=== PATIENT | male | born 1950 | race Caucasian/White ===

== ENCOUNTER 2017-12-30 11:31 | Inpatient (IN) | payer OTHER ==
[~2017-12-30] VITALS: Ht 180.3 cm; Wt 101.3 kg
--- NOTE | ~2017-12-30 | EKG ---
[place] [address] [place] [address] ELECTROCARDIOGRAM REPORT Name: GEORGIANA ARIAS Room #: 216-P ADM IN M.R.#: [id number] Admission: 12/30/17 Attend Phys: Eddi Fitzgerald MD Discharge: Date of : 52 Report #: [id number] THIS REPORT FOR: //name// [facility] ED Test Date: 2017-12-30 Test Time: 12:11:03 Pat Name: GEORGIANA ARIAS Department: Room: Gender: M Portrait Photographer: [facility] : 1950 Requested By: Irena De La Cruz Order Number: [id number] MD: Salazar Mahan Measurements Intervals [place] Rate: 91 P: AL: QRS: 67 QRSD: 82 T: 50 QT: 395 QTc: 487 Interpretive Statements Atrial fibrillation Ventricular premature complex Borderline low voltage, extremity leads Borderline prolonged QT interval Compared to ECG 11/07/2017 09:22:22 Ventricular premature complex(es) now present Right-axis deviation no longer present Electronically Signed On 12-31-2017 10:45:51 CDT by Salazar Mahan [email or web address] <ELECTRONICALLY SIGNED> By: Salazar Mahan MD 12/31/17 1045 10 10 Salazar Mahan MD /BHASKAR
--- NOTE | ~2017-12-30 | D ---
[facility] [place] [address] DISCHARGE SUMMARY Name: GEORGIANA ARIAS Room #: 216-P [facility] IN M.R.#: [id number] Admission: 12/30/17 Attend Phys: Eddi Fitzgerald MD Discharge: 01/08/18 Date of : 52 Report #: [id number] THIS REPORT FOR: //name// CC: Keenan Beaver DATE OF SERVICE: 01/08/2018 HOSPITAL COURSE: He is a 67-year-old white male resident of [facility], who was hospitalized with an acute stroke with left-sided deficits. It was initially an ischemic stroke and the patient does have chronic atrial fibrillation, but was not anticoagulated due to falls. The stroke spontaneously converted to hemorrhagic stroke during this admission. The patient was seen in evaluation by [facility] Cardiology and Dr. Grady Mcgee from Neurology. Given his marked neurologic deficits on admission, code status was again addressed with the family. His sister feels very comfortable and confident that the patient wants to have everything done. I did explain to her all the ramifications and she expressed a good understanding of what was involved in a code blue and felt that her brother was desirous of having everything done and she wanted to honor his wishes. The left cerebral hemorrhage occurred in the middle cerebral artery distribution and this is on the opposite side of stroke he has had in the past. He had a CT scan of the brain and subsequently MRI and MRA of the brain and intracranial vessels. There are some areas of spasm versus less likely vasculitis, but that diagnosis was not confirmed. In reviewing the progress notes, Dr. Mcgee from Neurology felt that the patient was not making progress and following commands. I did not have that experience and felt that the patient was able to follow commands. The patient does try to speak, but is unintelligible. He does shake his head "yes or no" appropriately in response to questions and did so multiple times in my presence. He also follows instructions about moving his extremities and specifically which ones to move and so forth. Nonetheless, because of the great difficulties with communication for this patient at the present time, his durable power of multi purpose machine operator is activated as both Dr. Mcgee's notes reflect his thoughts and I am stating mine that the patient is unable to make complex medical decisions on his own. I did review the living will of the patient. The attached power of multi purpose machine operator document is in fact crossed out by the patient. The patient was unable to swallow at time of admission and the feeding tube was [address] [address] DISCHARGE SUMMARY Name: GEORGIANA ARIAS Room #: 216-P [facility] IN M.R.#: [id number] Admission: 12/30/17 Attend Phys: Eddi Fitzgerald MD Discharge: 01/08/18 Date of : 52 Report #: [id number] placed and he was started on tube feeding, which attained the 70 mL per hour target rate without difficulty and at time of discharge, he will be going home on continuous tube feeding regimen at 70 mL per hour +150 mL water flushes 4 times a day for starters. DISCHARGE DIAGNOSES: 1. Left hemispheric cerebral ischemic stroke with subsequent hemorrhagic conversion and right-sided deficits and oropharyngeal dysphagia. 2. PEG tube placement. 3. Chronic atrial fibrillation with rate control. 4. Type 2 diabetes mellitus. 5. Urinary tract infection. 6. Ischemic cardiomyopathy. 7. Chronic systolic congestive heart failure. 8. Nonsustained ventricular tachycardia. 9. Obstructive sleep apnea with BiPAP at bedtime. DISCHARGE MEDICATIONS: As follows: 1. Aspirin 81 mg daily. 2. Ciprofloxacin 250 mg per PEG twice daily. 3. Tamsulosin 0.4 mg per PEG daily. 4. Ferrous sulfate 325 mg per PEG daily. 5. Digoxin 0.25 mg per PEG daily. 6. Lipitor 40 mg per PEG at bedtime. 7. Clonidine patches 0.3 mg changed every Monday. 8. Diltiazem 60 mg per tube q.6 hours. 9. Tylenol 650 mg per PEG every 6 hours as needed for pain or fever. 10. Gabapentin 100 mg per tube twice daily. 11. Torsemide 20 mg per PEG every morning. 12. NovoLog sliding scale every 6 hours. 13. Folic acid 1 mg daily in the morning. 14. Allopurinol 100 mg per tube daily. ALLERGIES: 1. PENICILLIN. 2. SULFA. 3. APRICOT. 4. MUSHROOMS. DISPOSITION: The patient is being discharged to a skilled stay at [address] [address] DISCHARGE SUMMARY Name: GEORGIANA ARIAS Room #: 216-P DIS IN M.R.#: [id number] Admission: 12/30/17 Attend Phys: Eddi Fitzgerald MD Discharge: 01/08/18 Date of : 52 Report #: [id number] Mcfp and from there, Dr. Fitzgerald will resume care and work with the family for future plans. <ELECTRONICALLY SIGNED> By: Christian Martini MD 01/09/18 1817 1707 Christian Martini MD /nt
--- NOTE | ~2017-12-30 | PATH ---
[facility] [place] [address] [address] [place] [address] PATHOLOGY RPT PROCEDURE Name: DEREK BARRERA Room #: 216-P DIS IN M.R.#: [id number] Admission: 12/30/17 Date of : 52 Discharge: 01/08/18 Report #: [id number] Path Case #: [id number] [facility] Accession Number: [id number] . 01 Material submitted: . PART A: BX OF DUODENUM PART B: BX OF GASTRIC . 01 Clinical history: . Duodenitis, PEG tube placement, R/O H. pylori . 02 Diagnosis: A. Small bowel mucosa, duodenum/duodenitis, endoscopic biopsy: - Focal changes compatible with erosion showing acute inflammation and fundic-type metaplasia, compatible with peptic duodenitis. - Remainder of tissue showing no villous blunting or increase in intraepithelial lymphocytes. . B. Gastric mucosa, gastric rule out H. pylori, endoscopic biopsy: - Mild reactive gastropathy. - Negative for intestinal metaplasia or atrophy. - Negative for Helicobacter pylori (properly controlled immunohistochemical stain performed). (IUV/db; 01/08/18) LBQ/01/08/2018 . 02 Electronically signed: . Edna Lang MD, Pathologist NPI- [id number] . 01 Gross description: . A. The specimen is received in formalin, labeled "Derek Barrera, biopsy of duodenum-duodenitis". Received are two segments of pale gerardo soft tissue measuring 0.3 and 0.4 cm in maximum dimensions. The specimen is submitted entirely in cassette A1. . B. The specimen is received in formalin, labeled "Derek Barrera, biopsy of gastric, R/O H. pylori". Received is a segment of pale gerardo soft tissue measuring 0.4 cm in maximum dimensions. The specimen is submitted entirely in cassette B1. (CAA; 01/05/2018) QAC/QAC . 02 Pathologist provided ICD-10: K29.80, K31.9 . 02 CPT . [address] [address] PATHOLOGY RPT PROCEDURE Name: DEREK BARRERA Room #: 216-P DIS IN M.R.#: [id number] Admission: 12/30/17 Date of : 52 Discharge: 01/08/18 Report #: [id number] Path Case #: [id number] Performed at: [address], [place], [place] [id number] MD Neymar Hooks MD Phone: [phone] Performed at: [address] [id number] MD Edna Lang MD Phone: [phone]
[~2017-12-30 11:31] MED LIST: ADULT LOW DOSE81 MG PO; ALLOPURINOL 10100 M1 PO; ALLOPURINOL 10100 M2 PO; ATENOLOL 25MG T25 M1 PO; ATORVASTATIN CA40 MG PO; CARDIZEM CD240 MG PO; DUONEB 2.5-0.5 M3 ML INH; EPOGEN10000 UNIT SUBQ; FLOMAX0.4 MG PO; FOLIC ACID1 MG PO; HUMALOG100 UNIT/1 SUBQ; HYDRALAZINE 10M10 MG PO; IMDUR 60 MG TAB60 M1 PO; IRON325 PO; LANTUS SUBQ; MUCINEX600 MG PO; NOVOLOG100 UNIT/1 SUBQ; OS-CAL 500+D31 EAC1 PO; TRAMADOL 50 MG50 MG PO; TYLENOL325 MG PO; ZOFRAN ODT4 MG DISSOLVE
[2017-12-30 11:32] VITALS: BP 136/73
[2017-12-30 11:46] LABS: ABSOLUTE NEUTROPHILS 6.5 thou/uL (1.4-8.2); BASOPHILS 1.3 % (0.0-2.0); EOSINOPHILS 3.9 % (0.0-3.0); HEMATOCRIT 38.3 % (42.0-52.0); HEMOGLOBIN 12.8 gm/dL (14.0-18.0); LYMPHOCYTES 16.2 % (24.0-44.0); MCH 26.2 pg (26.0-34.0); MCHC 33.4 g/dL (28.0-37.0); MCV 78.6 fL (80.0-100.0); MONOCYTES 8.1 % (1.0-8.0); PLATELET COUNT 221 thou/uL (150-400); POLYS 70.5 % (36.0-66.0); RBC 4.87 mil/uL (4.50-6.00); WBC 9.3 thou/uL (4.0-11.0)
[2017-12-30 11:48] LABS: POC CA IONIZED 4.4 mg/dL (4.5-5.3); POC CREATININE 1.6 mg/dL (0.6-1.3); POC HEMOGLOBIN 13.6 g/dL (14.0-18.0); POC POTASSIUM 4.1 mmol/L (3.5-5.1)
[2017-12-30] MEDS ORDERED: POTASSIUM20 PO (12:18)
[2017-12-30] MEDS ORDERED: TORSEMIDE20 MG PO (12:19)
[2017-12-30 12:45] LABS: URINE BILIRUBIN NEGATIVE (Negative); URINE BLOOD 1+ (Negative); URINE CLARITY CLEAR; URINE COLOR YELLOW; URINE GLUCOSE-RANDOM* NEGATIVE (Negative); URINE KETONES NEGATIVE (Negative); URINE LEUKOCYTES 3+ (Negative); URINE NITRITE NEGATIVE (Negative); URINE PROTEIN (DIPSTICK) 2+ (Negative); URINE SPECIFIC GRAVITY 1.015 (1.005-1.035); URINE UROBILINOGEN 0.2 E.U./dl (0.2-1.0)
[2017-12-30 12:54] LABS: BACTERIA None Seen /HPF (None Seen); CRYSTALS None Seen /LPF (None Seen); SQUAMOUS 0-3 Few /LPF (0-3); URINE RBC 3-10 Few /HPF (0-2); URINE WBC >25 Many /HPF (0-5); WBC CLUMPS Packed (None Seen)
[2017-12-30 12:55] LABS: FINE GRANULAR CASTS 0-3 Few /LPF (None Seen)
[2017-12-30 13:31] VITALS: BP 123/82
[2017-12-30 14:43] VITALS: BP 140/69
[2017-12-30 19:26] VITALS: BP 141/70
[2017-12-30 23:54] VITALS: BP 134/73
[2017-12-31 04:12] VITALS: BP 131/75
[2017-12-31 08:25] VITALS: BP 107/77
[2017-12-31 11:17] VITALS: BP 141/71
[2017-12-31 16:15] VITALS: BP 155/76
[2018-01-01 03:44] VITALS: BP 159/74
[2018-01-01 05:15] LABS: CALCIUM 8.3 mg/dL (8.5-10.1); CREATININE 1.5 mg/dL (0.7-1.3); POTASSIUM 3.8 mmol/L (3.5-5.1)
[2018-01-01 07:43] LABS: HEMATOCRIT 35.7 % (42.0-52.0); HEMOGLOBIN 11.8 gm/dL (14.0-18.0); MCH 26.1 pg (26.0-34.0); MCV 79.2 fL (80.0-100.0); PLATELET COUNT 190 thou/uL (150-400); RBC 4.51 mil/uL (4.50-6.00); RDW 19.3 % (10.5-14.5); WBC 10.7 thou/uL (4.0-11.0)
[2018-01-01 08:07] VITALS: BP 139/43
[2018-01-01 08:13] LABS: ABSOLUTE NEUTROPHILS 8.3 thou/uL (1.4-8.2)
[2018-01-01 08:14] LABS: ANISOCYTOSIS 1+
[2018-01-01 12:21] VITALS: BP 167/70
[2018-01-01 15:44] VITALS: BP 197/93
[2018-01-01 16:23] VITALS: BP 141/76
[2018-01-01 20:04] VITALS: BP 155/83
[2018-01-02 05:02] VITALS: BP 160/87
[2018-01-02 08:09] VITALS: BP 172/93
[2018-01-02 11:24] VITALS: BP 168/101
[2018-01-02 15:09] VITALS: BP 184/86
[2018-01-02 19:43] VITALS: BP 194/86
[2018-01-03 00:37] VITALS: BP 174/85
[2018-01-03 03:58] VITALS: BP 186/90
[2018-01-03 08:12] VITALS: BP 196/92
[2018-01-03 11:06] VITALS: BP 189/95
[2018-01-03 16:07] VITALS: BP 183/93
[2018-01-03 20:59] VITALS: BP 188/90
[2018-01-04] VITALS (7 sets, daily range): BP systolic 140–190; BP diastolic 76–102
[2018-01-05 00:32] VITALS: BP 172/83
[2018-01-05 04:47] VITALS: BP 170/84
[2018-01-05 07:29] VITALS: BP 181/86
[2018-01-05 12:06] VITALS: BP 159/76
[2018-01-05 15:10] VITALS: BP 173/86
[2018-01-05 19:51] VITALS: BP 147/75
[2018-01-06 00:07] VITALS: BP 162/71
[2018-01-06 04:50] VITALS: BP 142/74
[2018-01-06 05:05] LABS: HEMATOCRIT 38.4 % (42.0-52.0); HEMOGLOBIN 12.4 gm/dL (14.0-18.0); MCHC 32.3 g/dL (28.0-37.0); MCV 80.3 fL (80.0-100.0); RBC 4.79 mil/uL (4.50-6.00); RDW 19.2 % (10.5-14.5)
[2018-01-06 05:19] LABS: APTT 25.1 Seconds (24.5-32.8); PROTIME 10.6 Seconds (9.3-11.4)
[2018-01-06 07:30] VITALS: BP 143/73
[2018-01-06 12:00] VITALS: BP 139/66
[2018-01-06 16:00] VITALS: BP 146/70
[2018-01-06 19:34] VITALS: BP 145/65
[2018-01-07] VITALS (7 sets, daily range): BP systolic 108–184; BP diastolic 54–76
[2018-01-08 00:09] VITALS: BP 163/72
[2018-01-08 05:32] VITALS: BP 148/79
[2018-01-08 08:10] VITALS: BP 145/63
[2018-01-08 11:50] VITALS: BP 172/79
[2018-01-08 13:45] LABS: CHOLESTEROL 95 mg/dL (<200); HDL CHOLESTEROL 24 mg/dL (>40); LDL CHOLESTEROL 54 mg/dL (<100); TRIGLYCERIDE 89 mg/dL (<150); VLDL 18 mg/dL (<40)
[2018-01-08 15:30] VITALS: BP 167/80
[2018-01-08] MEDS ORDERED: CIPRO250 M1 PER TUBE (16:38)
[2018-01-08] MEDS ORDERED: IRON325 PER TUBE (16:39)
[2018-01-08] MEDS ORDERED: FLOMAX0.4 MG PER TUBE (16:39)
[2018-01-08] MEDS ORDERED: DIGOXIN 0.25 MG TAB PER TUBE (16:40)
[2018-01-08] MEDS ORDERED: Lipitor 40 MG Tab PO (16:40)
[2018-01-08] MEDS ORDERED: CLONIDINE1 EAC1 TRANSDERM (16:40)
[2018-01-08] MEDS ORDERED: DILTIAZEM 30 MG PER TUBE (16:41)
[2018-01-08] MEDS ORDERED: Tylenol 325MG Caplet PO (16:41)
[2018-01-08] MEDS ORDERED: GABAPENTIN 100100 MG PER TUBE (16:41)
[2018-01-08] MEDS ORDERED: FOLIC ACID 1 MG PO (16:42)
[2018-01-08] MEDS ORDERED: TORSEMIDE 20 MG PER TUBE (16:42)
[2018-01-08] MEDS ORDERED: ALLOPURINOL 100 MG PER TUBE (16:42)
[2018-01-08] MEDS ORDERED: NOVOLOG100 UNIT/1 SUBQ (16:42)
== END 2018-01-08 17:59 | DRG 64 ==
LOC: ER 11:31 → 2N 12:44 → EROBS 12:44 → 2N 14:13
PROVIDERS: Emergency Medicine; Internal Medicine; Psychiatry & Neurology Neuromuscular Medicine
PROC: 5A09357 Assistance with Respiratory Ventilation, Less than 24 Consecutive Hours, Continuous Positive Airway Pressure (ICD-10-PCS; principal; 2018-01-03)
PROC: 0DH63UZ Insertion of Feeding Device into Stomach, Percutaneous Approach (ICD-10-PCS; 2018-01-04)
PROC: 0DB68ZX Excision of Stomach, Via Natural or Artificial Opening Endoscopic, Diagnostic (ICD-10-PCS; 2018-01-04)
PROC: 0DB98ZX Excision of Duodenum, Via Natural or Artificial Opening Endoscopic, Diagnostic (ICD-10-PCS; 2018-01-04)
PROC: 5A09357 Assistance with Respiratory Ventilation, Less than 24 Consecutive Hours, Continuous Positive Airway Pressure (ICD-10-PCS; 2018-01-04)
DX: I63.9 Cerebral infarction, unspecified (principal); I61.9 Nontraumatic intracerebral hemorrhage, unspecified; I50.22 Chronic systolic (congestive) heart failure; N39.0 Urinary tract infection, site not specified; I47.2 Ventricular tachycardia; G81.94 Hemiplegia, unspecified affecting left nondominant side; I13.0 Hypertensive heart and chronic kidney disease with heart failure and stage 1 through stage 4 chronic kidney disease, or unspecified chronic kidney disease; E11.22 Type 2 diabetes mellitus with diabetic chronic kidney disease; I25.5 Ischemic cardiomyopathy; G47.33 Obstructive sleep apnea (adult) (pediatric); R13.12 Dysphagia, oropharyngeal phase; I25.10 Atherosclerotic heart disease of native coronary artery without angina pectoris; N18.9 Chronic kidney disease, unspecified; K29.80 Duodenitis without bleeding; K29.70 Gastritis, unspecified, without bleeding; E78.5 Hyperlipidemia, unspecified; K21.9 Gastro-esophageal reflux disease without esophagitis; E11.65 Type 2 diabetes mellitus with hyperglycemia; I48.2 Chronic atrial fibrillation; N40.0 Benign prostatic hyperplasia without lower urinary tract symptoms; Z91.81 History of falling; Z86.73 Personal history of transient ischemic attack (TIA), and cerebral infarction without residual deficits; Z79.4 Long term (current) use of insulin; Z79.82 Long term (current) use of aspirin; Z79.899 Other long term (current) drug therapy; Z88.0 Allergy status to penicillin; Z88.2 Allergy status to sulfonamides; Z91.018 Allergy to other foods
CPT/HCPCS: 10081; 62110; 62900; 70005

== ENCOUNTER 2018-01-10 22:19 | Emergency (ER) | payer OTHER ==
[~2018-01-10] VITALS: Ht 180.3 cm; Wt 97.1 kg
[~2018-01-10 22:19] MED LIST changes: +ALLOPURINOL 100 MG PER TUBE; +CIPRO250 M1 PER TUBE; +CLONIDINE1 EAC1 TRANSDERM; +DIGOXIN 0.25 MG TAB PER TUBE; +DILTIAZEM 30 MG PER TUBE; +FLOMAX0.4 MG PER TUBE; +FOLIC ACID 1 MG PO; +GABAPENTIN 100100 MG PER TUBE; +IRON325 PER TUBE; +Lipitor 40 MG Tab PO; +POTASSIUM20 PO; +TORSEMIDE 20 MG PER TUBE; +TORSEMIDE20 MG PO; +Tylenol 325MG Caplet PO
== END 2018-01-10 22:32 ==
LOC: ER 22:19
DX: Z43.1 Encounter for attention to gastrostomy (principal); E11.9 Type 2 diabetes mellitus without complications; E78.5 Hyperlipidemia, unspecified; K21.9 Gastro-esophageal reflux disease without esophagitis; N40.0 Benign prostatic hyperplasia without lower urinary tract symptoms; Z99.2 Dependence on renal dialysis; Z88.0 Allergy status to penicillin; Z88.2 Allergy status to sulfonamides; Z88.8 Allergy status to other drugs, medicaments and biological substances

== ENCOUNTER 2018-01-11 13:03 | Emergency (ER) | payer OTHER ==
[~2018-01-11] VITALS: Ht 167.6 cm; Wt 77.1 kg
== END 2018-01-11 17:34 | disposition home or self-care (01) ==
LOC: ER 13:03
DX: Z43.1 Encounter for attention to gastrostomy (principal); E11.9 Type 2 diabetes mellitus without complications; I48.91 Unspecified atrial fibrillation; K21.9 Gastro-esophageal reflux disease without esophagitis; E78.5 Hyperlipidemia, unspecified; N40.0 Benign prostatic hyperplasia without lower urinary tract symptoms; Z99.2 Dependence on renal dialysis; Z88.0 Allergy status to penicillin; Z88.1 Allergy status to other antibiotic agents; Z88.2 Allergy status to sulfonamides; Z88.8 Allergy status to other drugs, medicaments and biological substances

== ENCOUNTER 2018-01-12 09:35 | Emergency (ER) | payer OTHER ==
[~2018-01-12] VITALS: Ht 180.3 cm; Wt 90.7 kg
[2018-01-13] MEDS ORDERED: TYLENOL325 MG PER TUBE (03:28)
== END 2018-01-12 09:59 ==
LOC: ER 09:35
DX: Z43.1 Encounter for attention to gastrostomy (principal); E11.9 Type 2 diabetes mellitus without complications; I48.91 Unspecified atrial fibrillation; E78.5 Hyperlipidemia, unspecified; K21.9 Gastro-esophageal reflux disease without esophagitis; N40.0 Benign prostatic hyperplasia without lower urinary tract symptoms; Z88.0 Allergy status to penicillin; Z88.1 Allergy status to other antibiotic agents; Z88.2 Allergy status to sulfonamides; Z88.8 Allergy status to other drugs, medicaments and biological substances

== ENCOUNTER 2018-01-13 03:12 | Emergency (ER) | payer OTHER ==
[~2018-01-13] VITALS: Ht 188 cm; Wt 108.9 kg
[2018-01-13] MEDS ORDERED: TYLENOL325 MG PER TUBE (03:28)
== END 2018-01-13 05:26 | disposition home or self-care (01) ==
LOC: ER 03:12
DX: Z46.59 Encounter for fitting and adjustment of other gastrointestinal appliance and device (principal); E11.22 Type 2 diabetes mellitus with diabetic chronic kidney disease; N18.9 Chronic kidney disease, unspecified; I48.91 Unspecified atrial fibrillation; E78.5 Hyperlipidemia, unspecified; K21.9 Gastro-esophageal reflux disease without esophagitis; Z99.2 Dependence on renal dialysis; Z79.4 Long term (current) use of insulin; Z88.0 Allergy status to penicillin; Z88.1 Allergy status to other antibiotic agents; Z88.2 Allergy status to sulfonamides; Z88.5 Allergy status to narcotic agent; Z91.018 Allergy to other foods

== ENCOUNTER 2018-05-12 19:50 | Inpatient (IN) | payer OTHER ==
[~2018-05-12] VITALS: Ht 185.4 cm; Wt 116.4 kg
--- NOTE | ~2018-05-12 | H ---
[facility] [place] [address] HISTORY AND PHYSICAL Name: GEORGIANA ARIAS Room #: 354-P [facility] IN M.R.#: [id number] Admission: 05/12/18 Attend Phys: Isiah Nam MD Discharge: Date of : 52 Report #: [id number] THIS REPORT FOR: //name// CC: Isiah Nam DATE OF SERVICE: 05/13/2018 HISTORY OF PRESENT ILLNESS: The patient is a 67-year-old male who presented to the Emergency Room with a complaint of shortness of breath that happened earlier yesterday. The patient apparently had coarse lung sounds on arrival to the hospital with some expiratory wheezes. His oxygen saturation was 90% on 4 liters, his respiratory rate was 30. The patient was admitted to the hospital with a possibility of aspiration pneumonia and acute hypoxic respiratory failure. PAST MEDICAL HISTORY: Significant for previous history of pneumonia, parotitis, chronic renal failure, type 2 diabetes mellitus, atrial fibrillation, previous history of falls, anemia, status post CVA with left hemiplegia and dysphagia, hyperlipidemia, gastroesophageal reflux disease. The patient had a history of prostate enlargement. The patient had a history of hyperlipidemia and gouty arthritis. ALLERGIES: PENICILLIN, SULFA, APRICOT, LEVOTHYROXINE, METHADONE, MUSHROOM, SULFA, and SULFADIAZINE. SOCIAL HISTORY AND FAMILY HISTORY: Unknown. REVIEW OF SYSTEMS: Unobtainable. PHYSICAL EXAMINATION: VITAL SIGNS: On arrival to the hospital, the patient's temperature was 97.6, pulse 113 and dropped to 71, respiration 19, blood pressure 132/80. Oxygen was 99% on nonrebreather. HEAD AND NECK: Unremarkable. NECK: Supple. LUNGS: Clear to auscultation with poor respiratory effort. CARDIAC: S1, S2, without any murmur or gallop. ABDOMEN: Benign. Bowel sounds were positive. EXTREMITIES: Trace edema bilaterally. LABORATORY DATA: The patient's 12-lead EKG showed atrial fibrillation with low-voltage on the extremities and precordial leads, nonspecific T-wave abnormalities on the lateral leads, prolonged QT interval. The patient's CBC with diff showed white count of 13.3, hemoglobin 8.4, hematocrit 26.5, platelet count 427, neutrophils are 91%. The patient's chest x-ray showed enlarged heart with a possibility of pericardial effusion, pulmonary congestion versus [facility] [address] [place] [address] HISTORY AND PHYSICAL Name: GEORGIANA ARIAS Room #: 354-P ADM IN M.R.#: [id number] Admission: 05/12/18 Attend Phys: Isiah Nam MD Discharge: Date of : 52 Report #: [id number] congestive heart failure, large left effusion, bilateral atelectasis versus pneumonitis. Basic metabolic panel showed a sodium of 131, potassium 5.8, chloride 98, bicarbonate 26, BUN 53, creatinine 1.5, glucose 169, calcium 9. Troponin less than 0.06. BNP 7076. ASSESSMENT AND PLAN: 1. Acute hypoxic respiratory failure. 2. Congestive heart failure. 3. Possible left lower lobe pneumonia. 4. Possible left pleural effusion. 5. Diabetes mellitus. 6. Previous history of cerebrovascular accident. 7. Atrial fibrillation. The patient was admitted to the hospital with the above-mentioned diagnoses. The patient will be started on meropenem to cover any possibility of aspiration pneumonia. The patient was given one dose of Lasix in the Emergency Room and I will give another dose of Lasix now. I will have an echocardiogram done and I will repeat the patient's chest x-ray tomorrow morning. The patient to continue his medications. We will have physical therapy and occupational therapy to work with the patient. <ELECTRONICALLY SIGNED> By: Isiah Nam MD 05/14/18 0642 0700 0735 Isiah Nam MD /nt
--- NOTE | ~2018-05-12 | EKG ---
[place] [address] [address] ELECTROCARDIOGRAM REPORT Name: GEORGIANA ARIAS Room #: 354-P ADM IN M.R.#: [id number] Admission: 05/12/18 Attend Phys: Isiah Nam MD Discharge: Date of : 52 Report #: [id number] THIS REPORT FOR: //name// [facility] ED Test Date: 2018-05-12 Test Time: 20:21:33 Pat Name: GEORGIANA ARIAS Department: Room: 354 Gender: M Supervisor Polishing: GAL RASHID : 1950 Requested By: Vane Leo Order Number: [id number] MD: Leonard Arzate Measurements Intervals [place] Rate: 123 P: NE: QRS: 80 QRSD: 60 T: 57 QT: 392 QTc: 561 Interpretive Statements Atrial fibrillation Low voltage, extremity and precordial leads Nonspecific ST/T abnormalities Artifact in lead(s) I,II,III,aVR,aVL,aVF,V1,V2 Compared to ECG 12/30/2017 12:11:03 Ventricular premature complex(es) no longer present Electronically Signed On 05-13-2018 23:41:54 SHIPPING AND RECEIVING SPECIALIST by Leonard Arzate [email or web address] <ELECTRONICALLY SIGNED> By: Leonard Arzate MD 05/13/182340 20 20 Leonard Arzate MD /EPI
--- NOTE | ~2018-05-12 | 2DMMODE ---
[facility] [address] [place] [address] 2 D/M-MODE ECHOCARDIOGRAM Name: GEORGIANA ARIAS Room #: 354-P ADM IN M.R.#: [id number] Admission: 05/12/18 Attend Phys: Isiah Nam MD Discharge: Date of : 52 Date of Service: 05/14/18 1426 Report #: [id number] THIS REPORT FOR: //name// APPROVED REPORT Study performed: 05/14/2018 12:30:24 EXAM: Comprehensive 2D, Doppler, and color-flow Echocardiogram Patient Location: Bedside Room #: 354 Status: routine BSA: 2.39 HR: 100 bpm BP: 133/71 mmHg Rhythm: Tachycardia Other Information Study Quality: Adequate Indications Congestive Heart Failure Diabetes Atrial Fibrillation 2D Dimensions IVSd: 11.07 (7-11mm) LVOT Diam: 21.16 (18-24mm) LVDd: 52.91 mm PWd: 9.82 (7-11mm) Ascending Ao: 34.24 (22-36mm) LVDs: 44.31 (25-40mm) Aortic Root: 36.84 mm IVC: 29.00 mm Volumes Left Atrial Volume (Systole) Single Plane 4CH: 68.54 mL Single Plane 2CH: 91.43 mL LA ESV Index: 37.00 mL/m2 Aortic Valve AoV Peak Arpit.: 1.61 m/s AO Peak Gr.: 10.34 mmHg LVOT Max P.92 mmHg LVOT Max V: 1.22 m/s JANI Vmax: 2.66 cm2 Pulmonary Valve PV Peak Arpit.: 1.07 m/s PV Peak Gr.: 4.65 mmHg [facility] [address] [place] [address] 2 D/M-MODE ECHOCARDIOGRAM Name: GEORGIANA ARIAS Room #: 354-P ADM IN M.R.#: [id number] Admission: 05/12/18 Attend Phys: Isiah Nam MD Discharge: Date of : 52 Date of Service: 05/14/18 1426 Report #: [id number] Left Ventricle The left ventricle is normal size. There is normal left ventricular wall thickness. Left ventricular systolic function is borderline. LVEF is 50%. This study is not technically sufficient to allow evaluation of the LV diastolic function. Right Ventricle The right ventricle is normal size. The right ventricular systolic function is normal. Atria Left atrium is dilated. Right atrium is dilated. Aortic Valve The aortic valve is normal in structure. Mild aortic regurgitation. There is no aortic valvular stenosis. Mitral Valve The mitral valve is normal in structure. Trace to mild mitral regurgitation. No evidence of mitral valve stenosis. Tricuspid Valve The tricuspid valve is normal in structure. Trace tricuspid regurgitation. No pulmonary hypertension. Pulmonic Valve The pulmonary valve is normal in structure. There is no pulmonic valvular regurgitation. Great Vessels The aortic root is normal in size. IVC is dilated and collapses <50% with inspiration. Pericardium Large pericardial effusion seen. A large mass is noted in the effusion.no evidence of signif rt sided chamber collapse to suggest tamonade physiology <Conclusion> The left ventricle is normal size. Left ventricular systolic function is borderline. LVEF is 50%. This study is not technically sufficient to allow evaluation of the LV diastolic function. The right ventricle is normal size. Left atrium is dilated. [facility] [address] [place] [address] 2 D/M-MODE ECHOCARDIOGRAM Name: GEORGIANA ARIAS Room #: 354-P ADM IN M.R.#: [id number] Admission: 05/12/18 Attend Phys: Isiah Nam MD Discharge: Date of : 52 Date of Service: 05/14/181425 Report #: [id number] Right atrium is dilated. Mild aortic regurgitation. Trace to mild mitral regurgitation. No evidence of mitral valve stenosis. The aortic root is normal in size. Large pericardial effusion seen. A large mass is noted in the effusion. Large pericardial effusion seen. A large mass is noted in the effusion.no evidence of signif rt sided chamber collapse to suggest tamonade physiology <ELECTRONICALLY SIGNED> By: Vik Harmon MD, [facility] 05/14/18 1426 142 1426 Vik Harmon MD, FACC /INF
--- NOTE | ~2018-05-12 | PATH ---
[facility] [address] [place] [address] PATHOLOGY RPT PROCEDURE Name: GEORGIANA ARIAS Room #: 354-P ADM IN M.R.#: [id number] Admission: 05/12/18 Date of : 52 Discharge: Report #: [id number] Path Case #: [id number] Note [facility] Accession Number: [id number] TESTS RESULT FLAG UNITS REF RANGE LAB Clinician Provided Cytology Information No. of containers..01 Other (Miscellaneous) Source: LEFT PLEURAL FLUID DIAGNOSIS: 02 LEFT PLEURAL FLUID NEGATIVE FOR MALIGNANT CELLS. MESOTHELIAL CELLS ARE PRESENT. THIS INTERPRETATION INCLUDES EVALUATION OF A CELL BLOCK. Signed out by: 02 Edna Lang MD, Pathologist NPI- [id number] Performed by: Cam West, Mechanic And Welder ([facility]) Gross description: 01 7ML, RED, SOLID /LCS FLAG LEGEND: L-Low Normal,H-High Normal,LL-Alert Low,HH-Alert High <-Panic Low,>-Panic High,A-Abnormal,AA-Critical Abnormal Performed at: [address] [place] [address] Neymar Hooks MD, [address] [address] Edna Lang MD, Specimen Comment: A courtesy copy of this report has been sent to Specimen Comment: [phone]. Specimen Comment: Report sent to Performed at: [address], [place], [place] [id number] MD Neymar Hooks MD Phone: [phone]
--- NOTE | ~2018-05-12 | HC ---
[facility] [place] [address] CONSULTATION Name: GEORGIANA ARIAS Room #: 354-P [facility] IN M.R.#: [id number] Admission: 05/12/18 Attend Phys: Isiah Nam MD Discharge: Date of : 52 Report #: [id number] THIS REPORT FOR: //name// CC: Isiah Nam Pulmonary Consultation REFERRAL PHYSICIAN: Keenan Yanez MD REASON FOR REFERRAL: Questionable lung mass. HISTORY OF PRESENT ILLNESS: The patient is a 67-year-old white male who presented to the emergency department with complaints of increasing dyspnea on the night of admission. Chest x-ray on admission showed moderate-sided pleural on moderate size left pleural effusion. A recent echocardiogram suggests questionable lung mass. For that reason, a pulmonary consultation was requested. The patient resides in a skilled nursing due to multiple medical problems including history of CVA with left hemiplegia. The patient is not a good historian. Most of the history is obtained from the chart. Presently, he is awake, but not able to answer questions. PAST MEDICAL HISTORY: Notable for diabetes mellitus type 2, atrial fibrillation, CVA with left hemiplegia, dysphagia, hyperlipidemia, gastroesophageal reflux disease, prostatic hypertrophy, past history of pneumonia, cardiomyopathy, history of parotitis, chronic kidney disease, enlarged prostate, arthritis. PAST SURGICAL HISTORY: Negative. ALLERGIES: PENICILLIN, which causes anaphylaxis; APRICOT, reactions not specified; LEVOFLOXACIN, reaction not specified; METHADONE, MUSHROOMS, SULFA, SULFADIAZINE, reaction not specified. MEDICATIONS: List reviewed in the MAR. FAMILY HISTORY: Noncontributory. SOCIAL HISTORY: No history of tobacco or alcohol use. REVIEW OF SYSTEMS: Deferred, as the patient is not a good historian. PHYSICAL EXAMINATION: [facility] [address] [place] [address] CONSULTATION Name: GEORGIANA ARIAS Room #: 354-P ADM IN M.R.#: [id number] Admission: 05/12/18 Attend Phys: Isiah Nam MD Discharge: Date of : 52 Report #: [id number] GENERAL: Awake, but does not appear coherent. VITAL SIGNS: Temperature is 98 degrees Fahrenheit, pulse is 90, respiratory rate is 20, blood pressure 127/68 mmHg, saturation 98%. HEENT: Normocephalic, atraumatic. NECK: Supple, without lymphadenopathy or thyromegaly. CHEST: Breath sounds are decreased in the bases. No obvious wheezes. No obvious rales. CARDIOVASCULAR: Normal S1, S2. There are no obvious murmurs or gallop. Pulses are 2+/4+ bilaterally. ABDOMEN: Soft, nontender, no organomegaly or masses felt. GENITOURINARY: Deferred. RECTAL: Deferred. EXTREMITIES: No cyanosis or clubbing. Trace edema bilaterally. DATA: CT chest and chest x-ray reviewed showing moderate size right-sided pleural effusion. In the left lower lung region, there appears to be a rounded atelectasis. Sodium 139, potassium 4.6, chloride of 102, CO2 of 29, BUN is 61, creatinine is 1.5. WBC 6500, hemoglobin 7.7, platelets are normal. Review of the prior chest x-rays, the patient appeared to have recurrent left-sided pleural effusion with what appears to be left mid lung field density, consistent with atelectasis. IMPRESSION: 1. Moderate left-sided pleural effusion, recurrent. Previous thoracentesis suggested pleural fluid was transudate. He had a prior chest tube placed on the previous admission. CT chest and echocardiogram suggests questionable lung mass. This likely represents atelectasis. Thoracentesis and repeating CT chest will be helpful. 2. Chronic left upper lobe atelectasis. 3. History of chronic obstructive pulmonary disease. 4. Obstructive sleep apnea, on CPAP at the skilled nursing. 5. Pericardial effusion, likely related to underlying heart failure. 6. Atrial fibrillation. 7. Acute on chronic heart failure. 8. Anemia. 9. Diabetes mellitus type 2. 10. Hypertension. 11. Chronic kidney disease, baseline creatinine 1.5. 12. History of cerebrovascular accident, left hemiplegia. 13. Acute hypoxic respiratory failure due to above. RECOMMENDATIONS: The patient will need to undergo thoracentesis; however, he has been on direct oral anticoagulant, but this has been on hold. We will proceed with thoracentesis in the next 48-72 hours. We will then do a followup chest x-ray and a CT chest regarding questionable left lower lobe lung mass. [address] [address] CONSULTATION Name: GEORGIANA ARIAS Room #: 354-P [facility] IN M.R.#: [id number] Admission: 05/12/18 Attend Phys: Isiah Nam MD Discharge: Date of : 52 Report #: [id number] In regards to his chronic left upper lobe atelectasis, it is likely related to debilitating weakness resulting from his CVA some time ago. <ELECTRONICALLY SIGNED> By: Tong Rinaldi MD 05/16/18 1844 1937 2224 Tong Rinaldi MD /nt
[~2018-05-12 19:50] MED LIST changes: +ALLOPURINOL 10100 M1 PER TUBE; +ANTI-ITCH28 GM TOP; +ATORVASTATIN CA40 MG PER TUBE; +CARDIZEM30 MG PER TUBE; +CLEOCIN HCL150 MG PER TUBE; +DEMADEX 2020 MG/1 TA PO; +ELIQUIS2.5 MG PER TUBE; +FOLIC ACID 1 MG1 MG PER TUBE; +GABAPENTIN 100100 MG PO; +GLUCAGON HCL1 MG IM; +GLUTOSE GEL 1515 G1 PO; +HYTRIN 2MG CAPSU2 M1 PER TUBE; +LANTUS100 UNIT/M SUBQ; +LISINOPRIL40 MG PER TUBE; +NORVASC2.5 MG PER TUBE; +TERAZOSIN HCL5 MG PO; +TYLENOL EXTRA500 MG PER TUBE; +TYLENOL325 MG PER TUBE
[2018-05-12 19:51] VITALS: BP 132/80
[2018-05-12 20:22] LABS: ABSOLUTE NEUTROPHILS 12.2 thou/uL (1.4-8.2); BASOPHILS 0.5 % (0.0-2.0); EOSINOPHILS 0.1 % (0.0-3.0); HEMATOCRIT 26.5 % (42.0-52.0); HEMOGLOBIN 8.4 gm/dL (14.0-18.0); LYMPHOCYTES 3.7 % (24.0-44.0); MCH 24.2 pg (26.0-34.0); MCHC 31.7 g/dL (28.0-37.0); MCV 76.4 fL (80.0-100.0); MONOCYTES 4.5 % (1.0-8.0); PLATELET COUNT 427 thou/uL (150-400); POLYS 91.2 % (36.0-66.0); RBC 3.47 mil/uL (4.50-6.00); RDW 19.5 % (10.5-14.5); WBC 13.3 thou/uL (4.0-11.0)
[2018-05-12 20:30] LABS: ANION GAP 7 mmol/L (7-16); BUN 53 mg/dL (7-18); CHLORIDE 98 mmol/L (98-107); CO2 26 mmol/L (21-32); CREATININE 1.5 mg/dL (0.7-1.3); GLUCOSE 169 mg/dL (74-106); POTASSIUM 5.8 mmol/L (3.5-5.1); SODIUM 131 mmol/L (136-145)
[2018-05-12] MEDS ORDERED: TYLENOL EXTRA500 MG PER TUBE (20:36)
[2018-05-12] MEDS ORDERED: AMLODIPINE BESY10 MG PER TUBE (20:37)
[2018-05-12 20:39] LABS: TROPONIN-I <0.06 ng/mL (<0.06)
[2018-05-12] MEDS ORDERED: LEVEMIR SUBQ (21:15)
[2018-05-12] MEDS ORDERED: LASIX 40 MG TAB40 M2 PER TUBE (21:16)
[2018-05-12] MEDS ORDERED: GABAPENTIN 100100 MG PER TUBE (21:16)
[2018-05-12] MEDS ORDERED: MIRALAX17 GM PER TUBE (21:17)
[2018-05-12] MEDS ORDERED: NOVOLOG100 UNIT/1 SUBQ (21:19)
[2018-05-12] MEDS ORDERED: KLOR-CON 1010 MEQ PER TUBE (21:20)
[2018-05-12] MEDS ORDERED: SANTYL OINTMENT30 G1 TOP (21:20)
[2018-05-12 21:45] VITALS: BP 130/72
[2018-05-12 22:15] VITALS: BP 134/64
[2018-05-13] VITALS (7 sets, daily range): BP systolic 111–135; BP diastolic 59–71
[2018-05-14 04:12] VITALS: BP 133/71
[2018-05-14 05:31] LABS: ABSOLUTE NEUTROPHILS 5.8 thou/uL (1.4-8.2); BASOPHILS 0.7 % (0.0-2.0); HEMOGLOBIN 7.9 gm/dL (14.0-18.0); LYMPHOCYTES 9.1 % (24.0-44.0); MCH 23.7 pg (26.0-34.0); MCHC 30.4 g/dL (28.0-37.0); MCV 77.9 fL (80.0-100.0); MONOCYTES 8.6 % (1.0-8.0); PLATELET COUNT 365 thou/uL (150-400); POLYS 80.6 % (36.0-66.0); RBC 3.34 mil/uL (4.50-6.00); RDW 19.1 % (10.5-14.5); WBC 7.2 thou/uL (4.0-11.0)
[2018-05-14 05:47] LABS: CALCIUM 8.8 mg/dL (8.5-10.1); CREATININE 1.5 mg/dL (0.7-1.3); POTASSIUM 4.7 mmol/L (3.5-5.1)
[2018-05-14 08:25] VITALS: BP 133/78
[2018-05-14 11:42] VITALS: BP 127/64
[2018-05-14 16:53] VITALS: BP 114/67
[2018-05-14 19:40] VITALS: BP 117/88
[2018-05-15 04:30] VITALS: BP 115/77
[2018-05-15 05:44] LABS: ABSOLUTE NEUTROPHILS 5.2 thou/uL (1.4-8.2); BASOPHILS 0.6 % (0.0-2.0); EOSINOPHILS 1.5 % (0.0-3.0); HEMATOCRIT 24.3 % (42.0-52.0); HEMOGLOBIN 7.7 gm/dL (14.0-18.0); LYMPHOCYTES 9.6 % (24.0-44.0); MCH 24.5 pg (26.0-34.0); MCHC 31.7 g/dL (28.0-37.0); MCV 77.2 fL (80.0-100.0); MONOCYTES 8.4 % (1.0-8.0); PLATELET COUNT 366 thou/uL (150-400); POLYS 79.9 % (36.0-66.0); RBC 3.14 mil/uL (4.50-6.00); RDW 19.7 % (10.5-14.5); WBC 6.5 thou/uL (4.0-11.0)
[2018-05-15 05:54] LABS: CALCIUM 8.5 mg/dL (8.5-10.1); CREATININE 1.5 mg/dL (0.7-1.3); POTASSIUM 4.6 mmol/L (3.5-5.1)
[2018-05-15 07:56] VITALS: BP 112/63
[2018-05-15 11:25] VITALS: BP 118/60
[2018-05-15 15:27] VITALS: BP 127/68
[2018-05-15 20:34] VITALS: BP 129/64
[2018-05-16 03:42] VITALS: BP 122/70
[2018-05-16 06:23] LABS: ABSOLUTE NEUTROPHILS 5.2 thou/uL (1.4-8.2); BASOPHILS 0.6 % (0.0-2.0); EOSINOPHILS 1.7 % (0.0-3.0); HEMATOCRIT 25.1 % (42.0-52.0); HEMOGLOBIN 7.7 gm/dL (14.0-18.0); LYMPHOCYTES 8.5 % (24.0-44.0); MCH 24.3 pg (26.0-34.0); MCHC 30.9 g/dL (28.0-37.0); MCV 78.7 fL (80.0-100.0); MONOCYTES 7.9 % (1.0-8.0); PLATELET COUNT 371 thou/uL (150-400); POLYS 81.3 % (36.0-66.0); RBC 3.18 mil/uL (4.50-6.00); RDW 19.4 % (10.5-14.5); WBC 6.4 thou/uL (4.0-11.0)
[2018-05-16 06:35] LABS: CALCIUM 8.8 mg/dL (8.5-10.1); CREATININE 1.5 mg/dL (0.7-1.3); POTASSIUM 4.2 mmol/L (3.5-5.1)
[2018-05-16 07:47] LABS: ANISOCYTOSIS 2+; HYPOCHROMASIA 1+; MICROCYTES SLIGHT; POIKILOCYTOSIS SLIGHT; POLYCHROMASIA SLIGHT
[2018-05-16 08:00] VITALS: BP 117/70
[2018-05-16 11:16] VITALS: BP 114/65
[2018-05-16 16:26] VITALS: BP 116/63
[2018-05-16 19:31] VITALS: BP 128/64
[2018-05-17 00:12] VITALS: BP 134/69
[2018-05-17 04:53] VITALS: BP 128/63
[2018-05-17 06:19] LABS: ABSOLUTE NEUTROPHILS 5.6 thou/uL (1.4-8.2); BASOPHILS 0.6 % (0.0-2.0); EOSINOPHILS 0.8 % (0.0-3.0); HEMATOCRIT 26.3 % (42.0-52.0); HEMOGLOBIN 8.3 gm/dL (14.0-18.0); LYMPHOCYTES 9.2 % (24.0-44.0); MCH 24.8 pg (26.0-34.0); MCHC 31.5 g/dL (28.0-37.0); MCV 78.7 fL (80.0-100.0); MONOCYTES 8.7 % (1.0-8.0); PLATELET COUNT 353 thou/uL (150-400); POLYS 80.7 % (36.0-66.0); RBC 3.34 mil/uL (4.50-6.00); RDW 19.6 % (10.5-14.5)
[2018-05-17 06:36] LABS: CALCIUM 9.1 mg/dL (8.5-10.1); CREATININE 1.5 mg/dL (0.7-1.3); POTASSIUM 4.7 mmol/L (3.5-5.1)
[2018-05-17 07:11] LABS: APTT 27.7 Seconds (24.5-32.8); PROTIME 10.9 Seconds (9.3-11.4)
[2018-05-17 08:07] VITALS: BP 132/71
[2018-05-17 11:02] VITALS: BP 121/70
[2018-05-17 11:42] LABS: SOURCE L CHEST
[2018-05-17 12:35] LABS: BF NUCLEATED CELLS 671; BF RBC 77181
[2018-05-17 13:18] LABS: CLARITY CLOUDY; COLOR RED; SOURCE LEFT CHEST; TOTAL VOLUME 35 mL
[2018-05-17 13:39] LABS: BF MACROPHAGE 9; BF NEUTROPHILS 13
[2018-05-17 15:46] VITALS: BP 109/56
[2018-05-17 19:40] VITALS: BP 120/64
[2018-05-18 04:25] VITALS: BP 132/55
[2018-05-18 06:24] LABS: ABSOLUTE NEUTROPHILS 6.5 thou/uL (1.4-8.2); BASOPHILS 0.5 % (0.0-2.0); EOSINOPHILS 1.6 % (0.0-3.0); HEMATOCRIT 26.5 % (42.0-52.0); HEMOGLOBIN 8.1 gm/dL (14.0-18.0); LYMPHOCYTES 8.2 % (24.0-44.0); MCHC 30.6 g/dL (28.0-37.0); MCV 78.5 fL (80.0-100.0); MONOCYTES 6.4 % (1.0-8.0); PLATELET COUNT 364 thou/uL (150-400); POLYS 83.3 % (36.0-66.0); RBC 3.38 mil/uL (4.50-6.00); RDW 19.3 % (10.5-14.5); WBC 7.8 thou/uL (4.0-11.0)
[2018-05-18 06:40] LABS: CALCIUM 8.4 mg/dL (8.5-10.1); CREATININE 1.3 mg/dL (0.7-1.3); POTASSIUM 4.5 mmol/L (3.5-5.1)
[2018-05-18 07:41] LABS: ANISOCYTOSIS 2+; PLATELET ESTIMATE NORMAL
[2018-05-18 07:42] LABS: HYPOCHROMASIA 1+; MICROCYTES 1+
[2018-05-18 13:58] VITALS: BP 135/74
[2018-05-18 14:07] LABS: BODY FLUID ALBUMIN 1.7 g/dL (()); BODY FLUID AMYLASE 30 U/L (()); BODY FLUID GLUCOSE 162 mg/dL (()); BODY FLUID LDH 138 IU/L (()); BODY FLUID PROTEIN 3.9 g/dL (())
[2018-05-18 19:08] VITALS: BP 139/69
[2018-05-19 04:15] VITALS: BP 119/65
[2018-05-19 05:33] LABS: ABSOLUTE NEUTROPHILS 5.8 thou/uL (1.4-8.2); BASOPHILS 0.7 % (0.0-2.0); EOSINOPHILS 2.2 % (0.0-3.0); HEMATOCRIT 26.5 % (42.0-52.0); HEMOGLOBIN 8.2 gm/dL (14.0-18.0); LYMPHOCYTES 10.9 % (24.0-44.0); MCH 24.3 pg (26.0-34.0); MCHC 30.8 g/dL (28.0-37.0); MCV 78.9 fL (80.0-100.0); MONOCYTES 7.5 % (1.0-8.0); PLATELET COUNT 339 thou/uL (150-400); POLYS 78.7 % (36.0-66.0); RBC 3.36 mil/uL (4.50-6.00); RDW 19.8 % (10.5-14.5); WBC 7.3 thou/uL (4.0-11.0)
[2018-05-19 05:44] LABS: CALCIUM 8.6 mg/dL (8.5-10.1); CREATININE 1.3 mg/dL (0.7-1.3); POTASSIUM 4.5 mmol/L (3.5-5.1)
[2018-05-19 07:36] VITALS: BP 119/62
[2018-05-19 11:54] VITALS: BP 116/62
== END 2018-05-19 14:18 | disposition short-term general hospital (02) | DRG 871 ==
LOC: ER 19:50 → 3W 21:16 → EROBS 21:16 → 3W 21:49
PROVIDERS: Emergency Medicine; Internal Medicine; Internal Medicine Pulmonary Disease; Nurse Practitioner Adult Health
PROC: 0W9B3ZZ Drainage of Left Pleural Cavity, Percutaneous Approach (ICD-10-PCS; principal; 2018-05-17)
DX: A41.9 Sepsis, unspecified organism (principal); J69.0 Pneumonitis due to inhalation of food and vomit; J96.21 Acute and chronic respiratory failure with hypoxia; J90 Pleural effusion, not elsewhere classified; J98.11 Atelectasis; I31.3 Pericardial effusion (noninflammatory); D62 Acute posthemorrhagic anemia; I42.9 Cardiomyopathy, unspecified; J93.9 Pneumothorax, unspecified; I69.354 Hemiplegia and hemiparesis following cerebral infarction affecting left non-dominant side; I13.0 Hypertensive heart and chronic kidney disease with heart failure and stage 1 through stage 4 chronic kidney disease, or unspecified chronic kidney disease; E78.5 Hyperlipidemia, unspecified; K21.9 Gastro-esophageal reflux disease without esophagitis; J44.9 Chronic obstructive pulmonary disease, unspecified; G47.33 Obstructive sleep apnea (adult) (pediatric); N18.9 Chronic kidney disease, unspecified; I50.9 Heart failure, unspecified; M10.9 Gout, unspecified; E11.22 Type 2 diabetes mellitus with diabetic chronic kidney disease; L97.519 Non-pressure chronic ulcer of other part of right foot with unspecified severity; R22.31 Localized swelling, mass and lump, right upper limb; I48.2 Chronic atrial fibrillation; X58.XXXA Exposure to other specified factors, initial encounter; D63.8 Anemia in other chronic diseases classified elsewhere; S31.000A Unspecified open wound of lower back and pelvis without penetration into retroperitoneum, initial encounter; Z88.1 Allergy status to other antibiotic agents; Z88.0 Allergy status to penicillin; Z88.2 Allergy status to sulfonamides; Z79.01 Long term (current) use of anticoagulants; Z88.8 Allergy status to other drugs, medicaments and biological substances; Z23 Encounter for immunization; Y93.89 Activity, other specified; Y92.89 Other specified places as the place of occurrence of the external cause; Y99.8 Other external cause status
CPT/HCPCS: 10879

== ENCOUNTER 2018-08-02 16:12 | Inpatient (IN) | payer OTHER ==
[~2018-08-02] VITALS: Ht 177.8 cm; Wt 95.5 kg
--- NOTE | ~2018-08-02 | HC ---
[facility] [place] [address] CONSULTATION Name: GEORGIANA ARIAS Room #: 201-P ADM IN M.R.#: [id number] Admission: 08/02/18 ������������������ Attend Phys: Isiah Nam MD Discharge: ������������������ Date of : 52 Report #: [id number] THIS REPORT FOR: //name// CC: Isiah Nam DATE OF SERVICE: 08/06/2018 CHIEF COMPLAINT: Status post resection, right fifth metatarsal and toe for chronic refractory osteomyelitis complicated by type 2 diabetes mellitus. He has polymicrobial deep tissue infection, and is on parenteral antibiotics. Surgical pathology is pending. He has had no visible bleeding in the bandage since it was changed yesterday. LABORATORY DATA: WBC 8.0, hemoglobin 7.3, hematocrit 23.6, platelets 307. BUN 81, creatinine 2.6, glucose 140. PHYSICAL EXAMINATION: His dressing is dry and clean, it was changed earlier today by the wound care nurse. There is no bleed through or drainage. His toes are warm to the touch with no pallor, cyanosis or signs of acute vascular embarrassment. IMPRESSION: Osteomyelitis with deep tissue infection, type 2 diabetes mellitus. PLAN: We will continue daily dressing changes and offloading with PRAFO boots. Antibiotics management per Infectious Disease. ��������������������������������������������� ���������������������������������������� By: ��������������������������������������������� [id number] Mehrdad Gonsalez, EDDY /nt
--- NOTE | ~2018-08-02 | HC ---
[facility] [place] [address] CONSULTATION Name: GEORGIANA ARIAS Room #: 201-P ADM IN M.R.#: [id number] Admission: 08/02/18 ������������������ Attend Phys: Isiah Nam MD Discharge: ������������������ Date of : 51 Report #: [id number] THIS REPORT FOR: //name// CC: Isiah Nam DATE OF SERVICE: 08/07/2018 CHIEF COMPLAINT: Status post right total fifth ray resection for osteomyelitis complicated by type 2 diabetes mellitus. He is on parenteral meropenem and linezolid. The surgical cultures are pending, preoperative swab cultures grew MRSA, VRE, Proteus mirabilis and E. coli. He has been afebrile with stable vital signs. His blood cultures were negative. Arterial Doppler was negative for focal stenosis with triphasic and biphasic waveforms maintained to the ankles. LABORATORY DATA: WBC 6.4, RBC 2.72, hemoglobin 6.9, hematocrit 21.2, platelets 284. BUN 69, creatinine 2.2, glucose 159. PHYSICAL EXAMINATION: Dressing was removed and there was immediate capillary refill to the periwound. No active bleeding noted. The Gelfoam was intact. There is no pallor, cyanosis or signs of acute vascular embarrassment. Low grade inflammation with no rose marie erythema or cellulitis. No popliteal adenopathy to the right leg. IMPRESSION: Osteomyelitis, deep tissue infection, type 2 diabetes mellitus, paraplegia. PLAN: The foot and Gelfoam were cleansed, dried and redressed with overlying Xeroform, Aquacel Ag, ABDs, Kerlix, and Popeye bandage. I ordered him a Multi Podus offloading boot since there was some shadowing to the right posterior heel. He was in a pillow PRAFO boots to both feet, but I feel the Multi Podus boot will do a better job at this point. We will follow the patient tomorrow. ��������������������������������������������� ���������������������������������������� By: ��������������������������������������������� 1819 06 Mehrdad Gonsalez DPM /nt
[~2018-08-02 16:12] MED LIST changes: +AMLODIPINE BESY10 MG PER TUBE; +KLOR-CON 1010 MEQ PER TUBE; +LASIX 40 MG TAB40 M2 PER TUBE; +LEVEMIR SUBQ; +MIRALAX17 GM PER TUBE; +SANTYL OINTMENT30 G1 TOP
[2018-08-02 16:15] VITALS: BP 124/75
[2018-08-02 16:37] LABS: ABSOLUTE NEUTROPHILS 7.3 thou/uL (1.4-8.2); BASOPHILS 0.8 % (0.0-2.0); EOSINOPHILS 3.1 % (0.0-3.0); HEMATOCRIT 24.3 % (42.0-52.0); HEMOGLOBIN 7.7 gm/dL (14.0-18.0); LYMPHOCYTES 8.3 % (24.0-44.0); MCH 23.8 pg (26.0-34.0); MCHC 31.9 g/dL (28.0-37.0); MCV 74.9 fL (80.0-100.0); MONOCYTES 5.7 % (1.0-8.0); PLATELET COUNT 409 thou/uL (150-400); POLYS 82.1 % (36.0-66.0); RBC 3.25 mil/uL (4.50-6.00); RDW 19.9 % (10.5-14.5); WBC 8.8 thou/uL (4.0-11.0)
[2018-08-02 16:45] LABS: CALCIUM 8.4 mg/dL (8.5-10.1); CREATININE 3.1 mg/dL (0.7-1.3)
[2018-08-02 18:00] VITALS: BP 126/69
--- NOTE | 2018-08-02 18:53 | NUR ---
DR. PARKER CALLS AND GIVES THIS CYLINDER MACHINE OPERATOR PULP DRIER ORDERS FOR LABS TO BE DRAWN IN AM. TYPE AND SCREEN, CBC, CMP. VERBAL READBACK AND ORDERS PLACED IN [facility]
[2018-08-02] MEDS ORDERED: PROBIOTIC1 EAC1 PER TUBE (19:02)
[2018-08-02] MEDS ORDERED: ASPIR 8181 MG PER TUBE (19:02)
[2018-08-02] MEDS ORDERED: CHOLESTYRAMINE PER TUBE (19:05)
[2018-08-02] MEDS ORDERED: IRON325 PER TUBE (19:06)
[2018-08-02] MEDS ORDERED: NOVOLOG100 UNIT/1 SUBQ (19:10)
[2018-08-02] MEDS ORDERED: IPRAT-ALBUT 0.5-3 ML INH (19:12)
[2018-08-03] VITALS (7 sets, daily range): BP systolic 114–149; BP diastolic 51–82
--- NOTE | 2018-08-03 01:19 | NUR ---
PT ADMITTED FROM ED WITH OSTEOMYELITIS,HYPERKALEMIA AND LAMBERTO.PT ALERT TO SELF.MAX ASSIST WITH BED TRANSFER.PT FROM A NURSING FACILITY.UNABLE TO VOICE NEEDS BUT FOLLOWS SIMPLE COMMANDS AND YES/NO COMMANDS.H/O CVA WITH RIGHT SIDE WEAKNESS, APHASIA.NPO.ON TUBE FEEDINGS.DR EGAN CONTACTED FOR ORDERS.ABTS ORDERED,OTHERS DISCONTINUED D/T PT DECREASED KIDNEY FUNCTION.IVF ORDERED.SEE ORDERS FLOW.ASSESSMENT PER DOCUMENTATION.MOST OF THE DOCUMENTATION OBTAINED FROM THE PRISON PAPERWORK.RIGHT LATERAL WOUND NOTED,DRAINING TO YELLOW DRAINAGE AND HAVING BAD SMELL.RIGHT FOOT WARM TO TOUCH,WITH ERYTHEMA SURROUNDINNG THE WOUND.PT SCREAMS UPON TOUCH TO THE WOUND AREA,PICTURES TAKEN,IN CHART,REDRESSED WITH ABD AND KERAYANNAX.WOUND CARE CONSULTED.POC IS TO HAVE SURGERY TOMORROW IF POTASSIUM LEVEL IS WNL.VSS.PT INCONTINENT OF B&B.AFIB ON MONITOR,CONTROLLED.NO S/S OF PAIN AT THIS TIME.WILL CONT TO MONITOR PER POC.
[2018-08-03 05:54] LABS: HEMOGLOBIN 6.7 gm/dL (14.0-18.0)
[2018-08-03 05:56] LABS: HEMATOCRIT 21.5 % (42.0-52.0); MCH 23.8 pg (26.0-34.0); MCHC 31.2 g/dL (28.0-37.0); MCV 76.5 fL (80.0-100.0); RBC 2.81 mil/uL (4.50-6.00); RDW 19.9 % (10.5-14.5); WBC 7.5 thou/uL (4.0-11.0)
[2018-08-03 06:28] LABS: ALBUMIN 2.1 g/dL (3.4-5.0); CALCIUM 7.8 mg/dL (8.5-10.1); CREATININE 2.9 mg/dL (0.7-1.3); POTASSIUM 5.2 mmol/L (3.5-5.1); TOTAL BILIRUBIN 0.5 mg/dL (<0.1-1.0)
--- NOTE | 2018-08-03 08:08 | EKG ---
[place] [address] [facility] [place] [address] ELECTROCARDIOGRAM REPORT Name: GEORGIANA ARIAS Room #: 201-P ADM IN M.R.#: [id number] ������������������ Admission: 08/02/18 ������������������ Attend Phys: Isiah Nam MD Discharge: ������������������ Date of : 51 Report #: [id number] ����������������������������������������������������������������� [id number] THIS REPORT FOR: //name// [facility] ED Test Date: 2018-08-02 Test Time: 17:23:31 Pat Name: GEORGIANA ARIAS Department: Room: 201 Gender: M Roving Technician: flaco : 1950 Requested By: Juan Jose Moy Order Number: [id number] MD: Jean Pollard Measurements Intervals [place] Rate: 68 P: NV: QRS: 84 QRSD: 91 T: 92 QT: 429 QTc: 457 Interpretive Statements Atrial fibrillation Borderline right axis deviation Low voltage Nonspecific ST and T wave abnormality Compared to ECG 05/12/2018 20:21:33 No significant changes Electronically Signed On 08-03-2018 8:08:39 EMPLOYMENT SPECIALIST by Jean Pollard [email or web address] ��������������������������������������������� <ELECTRONICALLY SIGNED> ���������������������������������������� By: Jean Pollard MD, [facility] ��������������������������������������������� 08/03/18 0808 1723 172 Jean Pollard MD, FACC /EPI
[2018-08-03 10:31] LABS: % SATURATION 15 % (20-39); IRON 27 ug/dL (65-175); TIBC 179 ug/dL (250-450)
[2018-08-03 11:47] LABS: FOLIC ACID 64.2 ng/mL (8.6-58.9)
--- NOTE | 2018-08-03 12:48 | NUR ---
Case opened to follow for dc planning. 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 He was there under his medicare snf benefits s/p cva with rt hemiparesis and aphasia; before then transitioning to ltc with [place] medicaid. Lead Burner Apprentice spoke with admissions at the facility. They are holding his bed and have faxed a copy of his dpoa for hc. I have placed a copy on the chart and nursing has spoken with his sister/dpoa Mary to update her. Pt to have surgery in 1-2 days on his foot. Will follow to assist with his return to the facility when medically cleared.
--- NOTE | 2018-08-03 16:55 | NUR ---
WOUND CONSULT: PT. WAS SEEN TODAY BY DR. SILVA AND MYSELF. PT. HAS CONFIRED OSTEO TO HIS RIGHT 5TH MTP JOINT. THIS SITE IS A STAGE [address] KNUTSON WILL TAKE THE PT. TO THE OR TOMORROW FOR A RAY RESECTION. RECOMENDATIONS: WOUND CARE TO RIGHT 5TH MTP JOINT: GENTLY CLEANSE AREA WITH WOUND CLEANSER OR NORMAL SALINE, PACK WITH DAKIN MOIST KERLIX, COVER WITH ABD, SECURE WITH TAPE, COMPLETE CARES DAILY AND PRN. PT. AND STAFF NURSE WERE INSTRUCTED ON PLAN OF CARE.
--- NOTE | 2018-08-04 04:58 | NUR ---
ASSESSMENTS CHARTED. CXR SHOWED SM LEFT PLEURAL EFFUSION/STABLE INFILTRATE IN RIGHT LUNGS. MAY HAVE SURGERY TODAY ON RIGHT FIFTH METATARSAL. ULTRASOUND OF BILATERAL LOWER LEGS WERE NEGATIVE. STILL WAITING TO COLLECT OCCULT STOOL. PATIENT CONTINUES IN ISOLATION.
[2018-08-04 05:23] LABS: BASOPHILS 0.5 % (0.0-2.0); EOSINOPHILS 3.8 % (0.0-3.0); HEMATOCRIT 22.8 % (42.0-52.0); HEMOGLOBIN 7.2 gm/dL (14.0-18.0); MCH 24.4 pg (26.0-34.0); MCHC 31.6 g/dL (28.0-37.0); MCV 77.1 fL (80.0-100.0); MONOCYTES 6.3 % (1.0-8.0); PLATELET COUNT 344 thou/uL (150-400); POLYS 83.4 % (36.0-66.0); RBC 2.96 mil/uL (4.50-6.00); RDW 20.1 % (10.5-14.5); WBC 9.6 thou/uL (4.0-11.0)
[2018-08-04 05:34] LABS: CALCIUM 8.1 mg/dL (8.5-10.1); CREATININE 2.7 mg/dL (0.7-1.3); PHOSPHORUS 4.5 mg/dL (2.5-4.9); POTASSIUM 4.4 mmol/L (3.5-5.1)
[2018-08-04 05:59] VITALS: BP 122/56
[2018-08-04 07:20] VITALS: BP 119/57
[2018-08-04 13:00] VITALS: BP 118/71
[2018-08-04 16:00] VITALS: BP 115/68
[2018-08-04 16:13] LABS: HEMATOCRIT 22.6 % (42.0-52.0); HEMOGLOBIN 7.2 gm/dL (14.0-18.0); MCH 24.8 pg (26.0-34.0); MCHC 31.7 g/dL (28.0-37.0); MCV 78.1 fL (80.0-100.0); RBC 2.9 mil/uL (4.50-6.00); RDW 20.5 % (10.5-14.5); WBC 8.9 thou/uL (4.0-11.0)
--- NOTE | 2018-08-04 17:35 | NUR ---
ASSUMED PATIENT CARE AT 0700. ALERT. NONE VERBLE. PATIENT HAD RIGHT 5TH TOE AMPUTATION AND BACK TO UNIT AT 1330. LEFT LEG ELEVATED. VSS. AFEBRILE. WILL KEEP MONITOR.
[2018-08-04 19:04] VITALS: BP 110/49
[2018-08-05 03:48] VITALS: BP 127/61
[2018-08-05 06:16] LABS: ABSOLUTE NEUTROPHILS 7.5 thou/uL (1.4-8.2); BASOPHILS 0.3 % (0.0-2.0); EOSINOPHILS 0.3 % (0.0-3.0); HEMATOCRIT 20.8 % (42.0-52.0); MCHC 30.8 g/dL (28.0-37.0); MONOCYTES 6.6 % (1.0-8.0); PLATELET COUNT 326 thou/uL (150-400); POLYS 87.8 % (36.0-66.0); RBC 2.67 mil/uL (4.50-6.00); RDW 20.9 % (10.5-14.5); WBC 8.6 thou/uL (4.0-11.0)
[2018-08-05 06:20] LABS: HEMOGLOBIN 6.4 gm/dL (14.0-18.0)
[2018-08-05 06:27] LABS: CALCIUM 8.2 mg/dL (8.5-10.1); CREATININE 2.6 mg/dL (0.7-1.3); PHOSPHORUS 4.4 mg/dL (2.5-4.9)
--- NOTE | 2018-08-05 06:38 | NUR ---
FOLLOWING POC WITH ENTERAL FEEDING AND IVF'S. VITAL SIGNS SHOW THE PT RUNNING LOW 100'S FOR HR. ATTEMPTED TO PLACE EXTERNAL CATH AND IT WOULD NOT STAY. MULTIPLE TIMES OF INCONTINENCE DUE TO URINE AND BOWEL. PT WILL HOLLER OUT PERIODICALLY. HOURLY ROUNDING.
[2018-08-05 07:15] VITALS: BP 130/64
[2018-08-05 07:51] LABS: ANISOCYTOSIS 2+; HYPOCHROMASIA 3+; MICROCYTES 2+; PLATELET ESTIMATE NORMAL; POLYCHROMASIA 1+
[2018-08-05 10:40] VITALS: BP 129/74; BP 133/38
[2018-08-05 11:25] VITALS: BP 130/40
[2018-08-05 14:07] LABS: HEMATOCRIT 23.9 % (42.0-52.0); HEMOGLOBIN 7.8 gm/dL (14.0-18.0)
--- NOTE | 2018-08-05 15:36 | NUR ---
SHIFT SUMMARY: HG/HCT-7.8/23.9 POST PRBC INFUSION. PINKER COMPLEXION, WELL TOLERATED, NO REACTION. IV FLUIDS DC'D, FUROSEMIDE IVP STARTED, ADDITIONAL IV PLACED TO ACCOMODATE PRBC INFUSION AND ANTIBIOTICS. L INNER LOWER THIGH RED AND WARM TO TOUCH, DRESSING DRY/INTACT ON R LOWER EXTREMITY, CAPILLARY REFILL LESS THAN 3 SEC, TOES WARM, KAREN LOWER EXTREMITIES ELEVATED ON PILLOWS. INCONTINENT LARGE AMOUNTS URINE, COMPLETE BATH AND COMPLETE BED CHANGE. WATCHING TV.
[2018-08-05 15:45] VITALS: BP 137/67
--- NOTE | 2018-08-05 17:28 | NUR ---
DR. KNUTSON, OUTSIDE MACHINIST HELPER PRESENT. SURGICAL DRESSING TO R FOOT CHANGED. SEE DOCUMENTATION FOR DETAILS. PRAFO BOOTS ORDERED.
[2018-08-05 20:41] VITALS: BP 130/67
[2018-08-06 03:23] VITALS: BP 131/68
[2018-08-06 04:25] LABS: CREATININE 2.6 mg/dL (0.7-1.3); PHOSPHORUS 4.1 mg/dL (2.5-4.9); POTASSIUM 3.3 mmol/L (3.5-5.1)
[2018-08-06 05:06] LABS: ABSOLUTE NEUTROPHILS 6.7 thou/uL (1.4-8.2); BASOPHILS 0.4 % (0.0-2.0); EOSINOPHILS 3.4 % (0.0-3.0); HEMATOCRIT 23.6 % (42.0-52.0); HEMOGLOBIN 7.3 gm/dL (14.0-18.0); LYMPHOCYTES 6.9 % (24.0-44.0); MCH 24.4 pg (26.0-34.0); MCHC 31.1 g/dL (28.0-37.0); MCV 78.5 fL (80.0-100.0); MONOCYTES 5.9 % (1.0-8.0); PLATELET COUNT 307 thou/uL (150-400); POLYS 83.4 % (36.0-66.0); RBC 3.01 mil/uL (4.50-6.00); RDW 20.7 % (10.5-14.5)
--- NOTE | 2018-08-06 06:32 | NUR ---
ASSESSMENT DOCUMENTED.PT BEEN RESTING IN NAD.A/OX1.PT HAS EXPRESSIVE APHASIA AN DYSPHAGIA 2/2 CVA.FOLLOWS COMMANDS APPROPRIATELY.AT TIMES PT WILL NOD OR SMILES WITH AGREEMENT TO COMMANDS.GENERALIZED WEAKNESS.S/P AMPTUTATION/RESECTION TO R 5TH TOE,DRESSING CDI.PRAFO BOOTS IN PLACE,ELEVATED KAREN LES.VSS.ON MONITOR AFIB W/RATE CONTROLLED.TUBE FEEDINGS PER ORDERS.FLUSHED PEG TUBE,PATENT.REPOSITIONED IN BED Q2H.INCONTINENT OF B&B.PT DENIES PAIN OR ANY DISTRESS AT THIS TIME.WILL CONT TO MONITOR PER POC.
[2018-08-06 07:15] VITALS: BP 127/70
--- NOTE | 2018-08-06 11:24 | HC ---
[facility] [address] [place] [address] CONSULTATION Name: GEORGIANA ARIAS Room #: 201-P ADM IN M.R.#: [id number] Admission: 08/02/18 ������������������ Attend Phys: Isiah Nam MD Discharge: ������������������ Date of : 51 Report #: [id number] THIS REPORT FOR: //name// CC: Isiah Nam DATE OF SERVICE: 08/03/2018 REASON FOR CONSULTATION: Acute kidney injury. HISTORY OF PRESENT ILLNESS: The patient is well known to us with chronic kidney disease, status post previous acute renal failure. He was on dialysis early last year for several months. We took him off dialysis at [facility] and [facility]. Creatinine then at baseline was 1.5, which represents some degree of CKD in this patient with a compromised muscle mass. The patient has been apparently at [facility] with a right foot infection with osteomyelitis of a couple of his toes and has been treated with antibiotics. He is now scheduled for some surgery. His creatinine went up to over 3 and his potassium was over 6. Of note, he was receiving potassium supplementation as well as nutritional high potassium supplementations at the [facility] care facility, which led to his hyperkalemia and likely acute kidney injury along with the osteomyelitis. He also was receiving antibiotics. PAST MEDICAL HISTORY: Remarkable for pericardial effusion late last year, I am not sure if that has resolved; left lung mass late last year; he had pleural effusions as well; all of which I am unclear if those have been resolved or not. Also has had multiple strokes with chronic atrial fibrillation. He has had both left and right hemispheric strokes and although awake, he is essentially nonverbal and difficult with understanding, etc. MEDICATIONS: At [facility] have included lactobacillus, allopurinol 100 mg daily, aspirin 81 mg daily, cholestyramine, diltiazem 90 mg every 6 hours, Eliquis 5 mg b.i.d., iron, folic acid 1 mg daily, gabapentin 100 mg b.i.d., Lasix 40 mg daily, albuterol inhaler, insulin, 20 mEq of potassium bicarbonate, terazosin 5 mg daily. FAMILY HISTORY: Please see old charts. SOCIAL HISTORY: No substantial cigarettes or alcohol. Lives at [facility] and he does have a . REVIEW OF SYSTEMS: Cannot be taken due to his real inability to communicate. PHYSICAL EXAMINATION: GENERAL: This is a patient who was awake. He nods yes or no, but I am not sure if it is appropriate. [facility] [address] [place] [address] CONSULTATION Name: GEORGIANA ARIAS Room #: 201-P ADM IN M.R.#: [id number] Admission: 08/02/18 ������������������ Attend Phys: Isiah Nam MD Discharge: ������������������ Date of : 51 Report #: [id number] EYES: He seems to have reasonably good vision. ENT: He seems to be hear. He has got his nasal cannula oxygen in his mouth. NECK: Supple. CHEST: Shows some rhonchi bilaterally. HEART: Irregular. ABDOMEN: Soft. EXTREMITIES: Show some swelling of the right leg with a dressing over the right foot. LABORATORY DATA: Includes potassium down from 6.0 to 5.2, creatinine down from 3.1 to 2.9. ASSESSMENT AND PLAN: 1. Ztyrq-ji-gvnedhz kidney disease. He has an infection and acute renal failure. I will adjust his IV fluids. His Lasix has been held and has been given some saline boluses and seems to be doing better. He does have a history of urinary retention and we will have to watch that carefully. 2. Osteomyelitis of the right foot, on appropriate antibiotics. 3. Chronic atrial fibrillation. 4. Bilateral hemispheric strokes with mental compromise. 5. History of left lung mass. 6. Recent pericardial effusion that may need to be rechecked. Cardiology consult likely needs to be re-involved here. 7. Heart failure with reduced ejection fraction. ��������������������������������������������� <ELECTRONICALLY SIGNED> ���������������������������������������� By: Vik Espinal MD ��������������������������������������������� 08/06/18 1124 1152 0111 Vik Espinal MD /nt
[2018-08-06 12:05] VITALS: BP 138/74
--- NOTE | 2018-08-06 14:20 | HC ---
[facility] [address] CONSULTATION Name: GEORGIANA ARIAS Room #: 201-P ADM IN M.R.#: [id number] Admission: 08/02/18 ������������������ Attend Phys: Isiah Nam MD Discharge: ������������������ Date of : 51 Report #: [id number] THIS REPORT FOR: //name// CC: Isiah Nam REASON FOR CONSULTATION: I was asked to evaluate concerning osteomyelitis of his right fifth metatarsal. HISTORY OF PRESENT ILLNESS: The patient is a 67-year-old with previous stroke, right hemiparesis, aphasia, atrial fibrillation and chronic kidney disease, who has been treated for right lateral foot wound with secondary infection. Most recent cultures had revealed VRE and Proteus. He was on Zyvox and amikacin IM. Subsequently, his creatinine went up to 3 and potassium 6.4. He is hospitalized now for further intervention. The patient was afebrile. No reported chills or sweats. He has had no nausea, vomiting or diarrhea. He could not give me any history, otherwise. This was gleaned from the chart and discussion with nursing staff. He has odorous drainage from his right foot. This has been worsening over the last several weeks. He has had a reasonable urine output. REVIEW OF SYSTEMS: A 10-point review of systems was unable to be completed due to the patient's inability to communicate. ALLERGIES: PENICILLIN WITH ANAPHYLAXIS; SULFA, LEVAQUIN, METHADONE. MEDICATIONS: As noted on his MAR, now on vancomycin and meropenem. PAST MEDICAL HISTORY: Pneumonia, chronic kidney disease, diabetes, atrial fibrillation, previously was on dialysis, left hemiparesis following stroke, dysphagia, aphasia, hyperlipidemia, gastroesophageal reflux, BPH, obstructive sleep apnea, gout, NV, congestive heart failure, seizures. FAMILY HISTORY: Noncontributory. SOCIAL HISTORY: Past smoker, no significant alcohol intake. PHYSICAL EXAMINATION: VITAL SIGNS: Afebrile and hemodynamically stable. GENERAL: He is alert and cooperative. SKIN: With ecchymosis and tender area to the medial aspect of his left thigh. This had surrounding erythema and was tender. The right lateral foot wound over the fifth metatarsal head had odorous drainage. To palpation, I was able to express a fairly large amount of purulent material. He had erythema surrounding this and 2+ lower extremity edema. No other decubiti or rash were noted. EYES: Without scleral icterus. MOUTH: Without mucositis. NECK: Supple. LUNGS: Clear. [address] [address] CONSULTATION Name: GEORGIANA ARIAS Room #: 201-P [facility] IN M.R.#: [id number] Admission: 08/02/18 ������������������ Attend Phys: Isiah Nam MD Discharge: ������������������ Date of : 51 Report #: [id number] HEART: Regular, without murmur, gallop or rub. ABDOMEN: Soft and nontender. No hepatosplenomegaly or mass. GENITOURINARY: External genitalia unremarkable. He was incontinent. RECTAL: Not performed. EXTREMITIES: The right lower extremity as noted above. Pulses were diminished, but palpable. He was able to move his right foot. Had left hemiparesis. NEUROLOGIC: He was aphasic. PSYCHIATRIC: Mood was normal. LABORATORY STUDIES: Chest x-ray showed right lung interstitial changes. Blood cultures negative to date. Wound culture pending. CRP 107. Sedimentation rate 100. Sodium 136, potassium 5.2, bicarbonate 27, creatinine 2.9, alkaline phosphatase 153, AST 30, ALT 35, bilirubin 0.5. Hemoglobin 6.7, platelet count 368,000, WBC 7.5. X-ray of the foot showed fifth metatarsal and fifth proximal phalanx osteomyelitis with air surrounding this area. IMPRESSION: A 67-year-old with multiple comorbidities presents now with osteomyelitis of his fifth metatarsal following what I suspect would be a pressure wound. He also likely has some peripheral vascular disease contributing here. He is anemic. He has chronic kidney disease with worsening. He has previous stroke with aphasia. RECOMMENDATIONS: 1. We will continue IV antibiotic therapy with vancomycin and meropenem pending culture results. The patient has multiple drug allergies. 2. Would pursue arterial studies of the right lower extremity. Would pursue surgical evaluation for ray amputation. We will adjust his antibiotics for his renal failure. Await culture results for final program. Continue offloading the area. Follow CBC and kidney function. Would transfuse. ��������������������������������������������� <ELECTRONICALLY SIGNED> ���������������������������������������� By: Mehrdad Buchanan MD ��������������������������������������������� 08/06/18 1420 1413 0402 Mehrdad Buchanan MD /nt
[2018-08-06 16:15] VITALS: BP 127/68
--- NOTE | 2018-08-06 16:29 | NUR ---
WOUND FOLLOW UP: PT. WAS SEEN TODAY BY DR. SILVA AND MYSELF. PT. HAS SURGICAL DEBRIDEMENT WITH RAY RESECTION BY DR. KNUTSON ON 08/04/18. SURGICAL DRESSING WAS CHANGED TODAY. WOUND BED IS FILLED WITH GEL FOAM BUT, OTHERWISE LOOKED HEALTHY IN APPERANCE. PT. HAD ALOT OF PAIN WITH DRESSING CHANGE. RECOMMENDATIONS: CONTINUE WITH CURRENT PLAN OF CARE. PT. AND STAFF NURSE WERE INSTRUCTED ON PLAN OF CARE.
--- NOTE | 2018-08-06 17:13 | HC ---
[facility] [place] [address] CONSULTATION Name: GEORGIANA ARIAS Room #: 201-P ADM IN M.R.#: [id number] Admission: 08/02/18 ������������������ Attend Phys: Isiah Nam MD Discharge: ������������������ Date of : 51 Report #: [id number] THIS REPORT FOR: //name// CC: Isiah Nam DATE OF SERVICE: 08/03/2018 ADMISSION DIAGNOSIS: Acute renal failure/osteomyelitis. HISTORY OF PRESENT ILLNESS: A 67-year-old male admitted through the ER from [facility] with elevated BUN, creatinine and potassium. He has concomitant deep tissue infection of the right foot with osteomyelitis of the distal fifth metatarsal. Recent cultures grew VRE and Proteus mirabilis, treated with oral Zyvox and amikacin. He completed antibiotics last week; however, his foot has become increasingly inflamed. PAST MEDICAL HISTORY: Significant for CVA with right hemiparesis, aphasia, dysphagia with PEG tube, type 2 diabetes mellitus, atrial fibrillation, diastolic heart failure, pleural effusion, HLD, hypertension. I reviewed his medications and allergies in the electronic medical record. He has remained afebrile with no constitutional symptoms. Blood cultures negative thus far. Wound culture from right foot has gram-negative rods, gram-positive cocci. Right foot radiographs reveal destruction of the distal fifth metatarsal and proximal phalanx with soft tissue emphysema consistent with osteomyelitis and septic arthritis. An arterial Doppler duplex exam has been ordered. He is on parenteral linezolid and meropenem per Infectious Disease. He is currently receiving 2 units PRBCs. LABORATORY DATA: WBC 7.5, RBC 2.81, hemoglobin 6.7, hematocrit 21.5, platelets 368. BUN 109, creatinine 2.9, glucose 200. Albumin 2.1. CRP 107. PHYSICAL EXAMINATION: A large penetrating ulceration to the right lateral fifth MTP with localized erythema and inflammation consistent with soft tissue infection and cellulitis. I am able to express some serous drainage from the wound, I can probe to the fifth metatarsal or I can probe to bone, presumably the distal fifth metatarsal. There is no pallor, cyanosis or signs of acute vascular embarrassment. I am unable to palpate pedal pulses, perhaps due to advanced edema. IMPRESSION: Osteomyelitis/septic arthritis, right fifth metatarsophalangeal complicated by type 2 diabetes mellitus and peripheral arterial disease. PLAN: The patient requires surgical resection of the distal fifth metatarsal and toe. We will discuss with Internal Medicine. [place] [address] CONSULTATION Name: GEORGIANA ARIAS Room #: 201-P ADM IN M.R.#: [id number] Admission: 08/02/18 ������������������ Attend Phys: Isiah Nam MD Discharge: ������������������ Date of : 51 Report #: [id number] Eliquis for at least 24 hours. He will require prolonged parenteral antibiotics, wound care and offloading. ��������������������������������������������� <ELECTRONICALLY SIGNED> ���������������������������������������� By: Mehrdad Gonsalez DPM ��������������������������������������������� 08/06/18 1713 1525 0452 Mehrdad Gonsalez, EDDY /alissa
--- NOTE | 2018-08-06 17:13 | HC ---
[facility] [place] [address] [place] [address] CONSULTATION Name: GEORGIANA ARIAS Room #: 201-P ADM IN M.R.#: [id number] Admission: 08/02/18 ������������������ Attend Phys: Isiah Nam MD Discharge: ������������������ Date of : 52 Report #: [id number] THIS REPORT FOR: //name// CC: Isiah Nam DATE OF SERVICE: 08/05/2018 CHIEF COMPLAINT: Postoperative day #1 for resection, right fifth ray. HISTORY: The patient had osteomyelitis with nonhealing ulceration, now complicated by type 2 diabetes mellitus. I resected the entire right fifth metatarsal and fifth digit, debrided the wound and open packed with Gelfoam. He received 1 unit of PRBC today. He is on parenteral meropenem and linezolid. Preoperative wound cultures grew MRSA, E. coli, Proteus mirabilis, and Streptococcus. LABORATORY DATA: WBC 8.6, RBC 2.67, hemoglobin 7.8, hematocrit 23.9, platelets 326, BUN 87, creatinine 2.6, glucose 162. PHYSICAL EXAMINATION: The dressing was removed and there was no active bleeding from the wound bed. The foot was warm with good color with no pallor or cyanosis. Low grade inflammation surrounding the surgical site. Mild pain with palpation during the dressing change and with palpation to the periwound. Intact Gelfoam and overlying Adaptic nonadherent petroleum gauze dressing. No popliteal adenopathy noted. IMPRESSION: Osteomyelitis, right fifth metatarsal with deep tissue infection, type 2 diabetes mellitus. PLAN: The wound was cleansed and dried and redressed with 4 x 4s, ABDs and Kerlix gauze. I ordered 2 soft PRAFO boots for offloading. I did not disturb the overlying Adaptic dressing or underlying Gelfoam, which was packed in the surgical site. No bleeding occurred during the bandage change. I will change the patient's bandage tomorrow. ��������������������������������������������� <ELECTRONICALLY SIGNED> ���������������������������������������� By: Mehrdad Gonsalez DPM ��������������������������������������������� 08/06/18 1713 1733 2333 Mehrdad Gonsalez DPM /nt
--- NOTE | 2018-08-06 17:21 | NUR ---
ASSUMED CARE OF PT AT SHIFT CHANGE. ASSESSMENTS CHARTED. MEDS GIVEN PER AUG. PT ALERT AND AWAKE, APHASIA, FOLLOWS COMMANDS. VSS, NO C/O PAIN, PT HAD PAIN DURING WOUND CHANGE BY WOUND NURSE, TYLENOL ORDERED, PT DID NOT WANT TO TAKE AT THAT TIME. TUBE FEEDING CONTINUES, TOLERATING WELL. PT IMMOBILE, Q2 TURNS ENFORCED. O2 SATS WNL ON 2 L O2. NO S/SX OF CARDIAC OR RESP DISTRESS NOTED. PT DOES NOT CALL APPROPRIATELY, PT CHECKED ON FREQUENTLY. FALL PRECAUTIONS IN PLACE. FAMILY CALLED THIS SHIFT, UPDATED ON CARE. WILL CONTINUE TO MONITOR AND FOLLOW POC.
--- NOTE | 2018-08-06 18:11 | NUR ---
CALLED TO ROOM TO ASSIST NURSE WITH RIGHT FOOT BLEEDING. CALLED DR KNUTSON AND INFORMED HIM THAT THE DRESSING WAS SATURATED AND DRIPPING ON FLOOR. DR KNUTSON ORDERED TO REMOVE SOME OF THE DRESSING, REINFORCE WITH ABD, KERLEX AND NOMI WRAP TIGHTENED. REMOVED TWO ABD, LEFT SINGLE ABD ON WOUND, REINFORCED WITH TWO ABD, ONE ROLL OF KERLIX AND NOMI BANDAGE. CAP REFILL ON RIGHT SECOND TOE LESS THAN 3 SECONDS.
[2018-08-06 20:30] VITALS: BP 116/56
[2018-08-06 23:05] VITALS: BP 121/74
--- NOTE | 2018-08-06 23:46 | NUR ---
ASSESSMENT DOCUMENTED.PT RESTING IN NO DISTRESS.S/P AMPUTATION/RESECTION OF RIGHT 5TH TOE/WOUND.DRESSING NOTED SOAKED WITH BRIGHT RED DRAINAGE.DRESSING REMOVED,REWRAPPED FOOT WITH 2 ABDS,KERLIX AND NOMI BANDAGE.DR KNUTSON NOTIFIED,INSTRUCTED TO CONTINUE TO MONITOR PLUS REDRESS WOUND IF NEEDED, HAVE WOUND CARE NOT TO DO DRESSING TO WOUND HE WILL DO IT HIMSELF.PT TOLERATED THE PROCEDURE.RIGHT FOOT ELEVATED WITH 2 PILLOWS.PRAFO BOOT WET FROM THE DRAINAGE.
[2018-08-07 03:29] LABS: HEMOGLOBIN 6.9 gm/dL (14.0-18.0); MONOCYTES 6.5 % (1.0-8.0); WBC 6.4 thou/uL (4.0-11.0)
[2018-08-07 03:30] LABS: ABSOLUTE NEUTROPHILS 4.9 thou/uL (1.4-8.2); BASOPHILS 0.4 % (0.0-2.0); EOSINOPHILS 6.2 % (0.0-3.0); HEMATOCRIT 21.2 % (42.0-52.0); MCH 25.4 pg (26.0-34.0); MCHC 32.7 g/dL (28.0-37.0); MCV 77.7 fL (80.0-100.0); PLATELET COUNT 284 thou/uL (150-400); POLYS 76.9 % (36.0-66.0); RBC 2.72 mil/uL (4.50-6.00); RDW 20.2 % (10.5-14.5)
[2018-08-07 03:47] LABS: ALBUMIN 1.7 g/dL (3.4-5.0); CALCIUM 7.9 mg/dL (8.5-10.1); CREATININE 2.2 mg/dL (0.7-1.3); PHOSPHORUS 3.7 mg/dL (2.5-4.9); POTASSIUM 3.2 mmol/L (3.5-5.1)
[2018-08-07 05:16] VITALS: BP 129/74
[2018-08-07 07:15] VITALS: BP 115/71
[2018-08-07 09:00] VITALS: BP 120/73; BP 123/66; BP 123/77; BP 124/70; BP 126/71; BP 131/73
[2018-08-07 11:45] VITALS: BP 131/73
--- NOTE | 2018-08-07 14:55 | NUR ---
ASSUMED CARE OF PT AT 0700 THIS SHIFT. PT HAS BEEN COOPERATIVE, HAS HAD SOME PAIN ON TOUCH OF LEFT THIGH CELLULITIS. PT NOT ABLE TO COMMUNICATE EFFECTIVELY, CAN MAKE SOUNDS, SMILE, AND NOD HEAD SLIGHTLY. PT RECIEVED 1 UNIT OF BLOOD THIS SHIFT FOR HGN <7.0 NO FURTHER ORDERS. PT IS CURRENTLY RESTING COMFORTABLY IN ROOM. PT HAS NOT HAD VISITORS THIS SHIFT, EDUCATION WAS PROVIDED. PLAN OF CARE IS TO CONTINUE TO MONITOR PT CLOSELY THIS SHIFT, WATCH FOR BLEEDING.
[2018-08-07 16:15] VITALS: BP 131/71
--- NOTE | 2018-08-07 16:31 | NUR ---
FAXED CLINICAL UPDATE TO [facility] LEFT MSG WITH ADM. DCP TO FOLLOW.
[2018-08-07 20:47] VITALS: BP 150/67
[2018-08-07] MEDS ORDERED: NITROGLYCERIN0.4 MG SUBLING (23:42)
[2018-08-08 04:12] LABS: ABSOLUTE NEUTROPHILS 5.1 thou/uL (1.4-8.2); BASOPHILS 0.6 % (0.0-2.0); EOSINOPHILS 6.4 % (0.0-3.0); HEMATOCRIT 24.3 % (42.0-52.0); HEMOGLOBIN 7.7 gm/dL (14.0-18.0); LYMPHOCYTES 10.8 % (24.0-44.0); MCH 24.7 pg (26.0-34.0); MCHC 31.7 g/dL (28.0-37.0); MONOCYTES 5.7 % (1.0-8.0); PLATELET COUNT 311 thou/uL (150-400); POLYS 76.5 % (36.0-66.0); RBC 3.12 mil/uL (4.50-6.00); RDW 20.2 % (10.5-14.5); WBC 6.7 thou/uL (4.0-11.0)
[2018-08-08 04:17] LABS: ALBUMIN 1.9 g/dL (3.4-5.0); CALCIUM 8.1 mg/dL (8.5-10.1); PHOSPHORUS 3.5 mg/dL (2.5-4.9); POTASSIUM 3.3 mmol/L (3.5-5.1)
[2018-08-08 04:45] VITALS: BP 121/62
--- NOTE | 2018-08-08 06:15 | NUR ---
PT. ABLE TO REST MOST OF THE NIGHT; ASKED IF PT. HAD PAIN; RESPONSE "YES"; ACETAMINOPHEN GIVEN; HR UP TO 117'S; A-FIB; ASSESSMENT CHARGED; RE-POSITIONED AND PERICARE PERFORMED; LOW K IN THE MORNING; CALLED PHYSICIAN; NO ANSWER; WILL TRY LATER; NO FALL CONTRACT SIGN; WILL PASS IN REPORT; FOLLOWING POC.
[2018-08-08 07:48] VITALS: BP 144/69
--- NOTE | 2018-08-08 08:31 | NUR ---
WOUND FOLLOW UP: PT. WAS SEEN ON 08/07/[address] SILVA AND MYSELF. DR. KNUTSON WAS ALSO PRESENT FOR THIS VISIT. PT. DRESSING WAS CHANGED. NO SIGNS OF ACTIVE BLEEDING WERE NOTED AT THIS TIME. PT. SURGICAL SITE WAS RE-DRESSED. PT. DOES HAVE SIGNS OF PAIN WITH DRESSING CHANGE. RECOMMENDATIONS: CONTINUE WITH CURRENT PLAN OF CARE. PT. AND STAFF NURSE WERE INSTRUCTED ON PLAN OF CARE.
--- NOTE | 2018-08-08 10:29 | NUR ---
Patient resides at [facility]. Plan return once stable to skilled care at facility. Sp with sister Mary who cont with planned return to facility.
[2018-08-08 10:49] VITALS: BP 140/78
[2018-08-08 15:20] VITALS: BP 153/76
[2018-08-08 20:42] VITALS: BP 148/78
--- NOTE | 2018-08-09 04:48 | NUR ---
PT. AWAKE DURING SHIFT CHANGE; BM AND PEE OVER BED PADS AT HS MEDICATION TIME; BED BAD GIVEN; LINENS CHANGE; ORAL CARE PERFORMED BY DIE REPAIR MACHINIST; ASSESSMENT CHARGED; NO C/O PAIN DURING REST; ABLE TO REST WITH EYES CLOSE MOST OF THE NIGHT; AFTER BED BAD PT. HAD ONE EMESIS EVENT; FOLLOWING POC; WILL PASS ON REPORT.
[2018-08-09 05:14] LABS: ABSOLUTE NEUTROPHILS 4.8 thou/uL (1.4-8.2); BASOPHILS 0.7 % (0.0-2.0); EOSINOPHILS 3.9 % (0.0-3.0); HEMOGLOBIN 8.1 gm/dL (14.0-18.0); LYMPHOCYTES 11.4 % (24.0-44.0); MCH 25.6 pg (26.0-34.0); MCHC 32.3 g/dL (28.0-37.0); MCV 79.1 fL (80.0-100.0); MONOCYTES 6.3 % (1.0-8.0); PLATELET COUNT 312 thou/uL (150-400); POLYS 77.7 % (36.0-66.0); RBC 3.16 mil/uL (4.50-6.00); RDW 20.4 % (10.5-14.5); WBC 6.2 thou/uL (4.0-11.0)
[2018-08-09 05:17] VITALS: BP 154/78
[2018-08-09 05:24] LABS: ALBUMIN 1.9 g/dL (3.4-5.0); CALCIUM 8.6 mg/dL (8.5-10.1); CREATININE 1.9 mg/dL (0.7-1.3); POTASSIUM 3.7 mmol/L (3.5-5.1)
[2018-08-09 07:20] VITALS: BP 136/69
[2018-08-09 08:00] VITALS: BP 131/80
[2018-08-09 11:51] VITALS: BP 145/74
--- NOTE | 2018-08-09 12:10 | PATH ---
[facility] [address] [place] [address] PATHOLOGY RPT PROCEDURE Name: DEREK BARRERA Room #: 201-P ADM IN M.R.#: [id number] ������������������ Admission: 08/02/18 ������������������ Date of : 52 Discharge: Report #: [id number] Path Case #: [id number] [facility] Accession Number: [id number] . 01 Material submitted: . RIGHT 5TH TOE AND METATARSAL . 01 Clinical history: . Osteomyelitis . 02 Diagnosis: Toe, right fifth toe and metatarsal, amputation: - Marked acute inflammation extending into deep subcutaneous tissue as well as bone associated with osteonecrosis, consistent with the history of acute osteomyelitis. - Skin margin viable. - Additionally received segment of bone showing reactive/regenerative changes at margin along with viable bone. (IUV/db; 08/07/2018) LBQ/08/07/2018 . 02 Electronically signed: . Edna Lang MD, Pathologist NPI- [id number] . 01 Gross description: . The specimen is received in formalin, labeled "Derek Barrera, right fifth toe and metatarsal" and consists of a toe measuring 5.6 x 2.4 x 2.0 cm. The nail is present which is gerardo and thickened. The skin is pink-lenz with a crusted possible black-brown lesion measuring 0.8 x 0.5 cm that extends to within 1.5 cm of the nearest skin resection margin. The proximal bone margin is ragged and surrounded by necrotized gerardo-brown tissue (inked black). Sectioning reveals yellow-pink and focally hemorrhagic bone cut surfaces. Also received is a segment of bone with attached yellow-lenz tissue measuring 3.3 x 1.7 x 1.7 cm. One aspect is flat and roughened consistent with a transection (inked blue) while the opposite aspect is ragged and fragmented. Sectioning reveals yellow cut surfaces and open claims representative sections are sent as follows: . A1: Possible skin lesion and skin soft tissue margin (inked black) A2: Toe, longitudinal section proximal A3: Toe, longitudinal section distal A4: Black inked, soft tissue from proximal margin A5: Full-thickness longitudinal section additionally received segment A2, A3, and A5 will be submitted following decalcification. (SDY; 08/06/2018) [place] [address] PATHOLOGY RPT PROCEDURE Name: DEREK BARRERA Room #: 201-P ADM IN M.R.#: [id number] ������������������ Admission: 08/02/18 ������������������ Date of : 52 Discharge: Report #: [id number] Path Case #: [id number] . 02 Pathologist provided ICD-10: M86.171, M87.871 . 02 CPT . 804699, [id number] Specimen Comment: A courtesy copy of this report has been sent to Specimen Comment: [phone], . Specimen Comment: Report sent to / DR EGAN Specimen Comment: A duplicate report has been generated due to demographic updates. Performed at: [address] [facility] [address] [id number] MD Neymar Hooks MD Phone: [phone] Performed at: [address] [facility] [id number] MD Edna Lang MD Phone: [phone]
[2018-08-09] MEDS ORDERED: KLOR-CON20 ME1 PER TUBE (12:21)
[2018-08-09] MEDS ORDERED: LINEZOLID600 MG PO (12:21)
[2018-08-09] MEDS ORDERED: MEROPENEM-500 MG/50 IVPB (12:21)
[2018-08-09] MEDS ORDERED: LASIX 40 MG TAB40 M2 PER TUBE (12:21)
[2018-08-09] MEDS ORDERED: PEPCID20 MG PER TUBE (12:21)
--- NOTE | 2018-08-09 14:57 | NUR ---
WOUND FOLLOW UP: PT. WAS SEEN TODAY BY DR. SILVA AND MYSELF. PT. DRESSING WAS CHANGED TODAY BY DR. KNUTSON. THIS DRESSING WAS LEFT IN PLACE. DISCUSSED THIS WITH DR. KNUTSON AND WOUND CARE WILL CHANGE THIS DRESSING TOMORROW. RECOMMENDATIONS: CONTINUE WITH CURRENT PLAN OF CARE. PT. AND STAFF NURSE WERE INSTRUCTED ON PLAN OF CARE.
--- NOTE | 2018-08-09 15:26 | NUR ---
Pt dcing back to [facility] at [facility]. Rianna in admissions has rechecked his medicare days and he does not have any snf days left. He [place] return there under [place]. They can provide for his iv atb and do part b therapy.DC environmental emergencies planner to fax the orders and finalize kcfd non emergent transport 4:30pm to 5. Chart copy in progress. Nursing to call report.
--- NOTE | 2018-08-09 15:31 | NUR ---
PT. DISCHARGING TODAY BACK TO [facility] SPOKE WITH JAMIE IN ADM. SHE RECEIVED DC ORDERS/SUMMARY. DCP ARRANGED TRANSPORTATION VIA [facility] ([facility] FOR [id number] TODAY. NOTIFIED PT'S SISTER (ANGELO) OF DISCHARGE AND TRANSPORT TIME. UNIT NOTIFIED AND CHART COPY PER US. RN TO CALL REPORT TO [phone].
[2018-08-09 16:00] VITALS: BP 143/84
[2018-08-09 17:29] VITALS: BP 145/74
--- NOTE | 2018-08-09 18:00 | NUR ---
PT CARE ASSUMED APPROX 0700. PT ALERT BUT NONVERBAL BASELINE. NODS YES OR NO AT TIMES. FOLLOWS ONE STEP COMMANDS. VSS. TURNING PT Q2 HRS AND PRN. INCONT OF BOWEL AND BLADDER. MULTIPLE CLEAN UPS NOTED. IV ABT REMAINS TO POC. PT TO DISCHARGE TODAY TO PREVIOUS FACILITY. REPORT CALLED TO MARGO. SHE DENIES QUESTIONS OR CONCERS REGARDING PT. WOUND CARE REVIEWED IN DEPTH WITH MARGO. DC MEDS AND F/U APPT WITH OUTPT WOUND CLINIC REVIEWED WITH MARGO WELL. TUBE FEEDING CHANGED TO JEVILTY 1.5 THIS SHIFT AND PT TOLERATING. NO RESIDUALS NOTED. RIGHT FOOT DSG CHANGED BY DR KNUTSON THIS SHIFT AND ORDER TO REINFORCE DSG GIVEN IF NEEDED. DSG HAS BEEN REINFORCED X2. LARGE AMOUNT OF BLOODY DRAINAGE NOTED AND TOLD TO MARGO AND AGAIN TO DR KNUTSON UPON NOTIFYING HIM OF PT DISCHARGE. 1/2 PIVs REMOVED PER [facility] REQUEST. TELE OFF. PEG TUBE CLAMPED FOR TRANSFER. SSI HELD THIS EVEING DUE TO TUBE FEEDING OFF FOR TRANSFER. NO DISTRESS NOTED THIS SHIFT. DISCHARGE.
--- NOTE | 2018-08-13 08:19 | HC ---
[facility] [place] [address] CONSULTATION Name: GEORGIANA ARIAS Room #: 201-P [facility] IN M.R.#: [id number] Admission: 08/02/18 ������������������ Attend Phys: Isiah Nam MD Discharge: 08/09/18 ������������������ Date of : 52 Report #: [id number] THIS REPORT FOR: //name// CC: Isiah Nam DATE OF SERVICE: 08/03/2018 CHIEF COMPLAINT: Ulceration of right fifth MTP. HISTORY OF PRESENT ILLNESS: This is a 67-year-old male patient, admitted to [facility] from [facility]. He was noted to have an ulceration and infection of his right foot. He has been seen by Dr. Bolton from Podiatry and I have been asked to see him with regard to ongoing wound care. The patient can provide no information about himself. He has had previous stroke with hemiparesis and aphasia. PAST MEDICAL HISTORY: Includes history of diabetes type 2, diastolic heart failure, previous pleural effusion, hyperlipidemia, hypertension and cerebrovascular accident with right hemiparesis, dysphagia requiring PEG tube and aphasia. ALLERGIES: PENICILLIN, APRICOT, LEVOFLOXACIN, METHADONE, MUSHROOMS SULFADIAZINE. MEDICATIONS: Include Tylenol, amlodipine, insulin, Lasix, gabapentin, polyethylene glycol, Klor-Con, collagenase, lactobacillus, acidophilus, aspirin, cholestyramine, ferrous sulfate, insulin, ipratropium and albuterol inhaler. SOCIAL HISTORY: The patient is a former smoker. No history of alcohol use. FAMILY HISTORY: Unknown. REVIEW OF SYSTEMS: Not obtainable due to the patient's aphasia. He cannot answer any questions, but does make eye contact. PHYSICAL EXAMINATION: VITAL SIGNS: Include temperature of 37.3, pulse 90, respiratory rate of 20, blood pressure 142/80. GENERAL: This is a chronically ill-appearing male patient who appears to be in minimal distress. HEENT: Head normocephalic. Nose and throat are clear. NECK: Supple. LUNGS: Clear. HEART: Regular rhythm. ABDOMEN: Soft. There is a PEG tube in place, not infected. EXTREMITIES: Demonstrate swelling, tenderness, induration involving the right [facility] [address] [place] [address] CONSULTATION Name: GEORGIANA ARIAS Room #: 201-P DIS IN M.R.#: [id number] Admission: 08/02/18 ������������������ Attend Phys: Isiah Nam MD Discharge: 08/09/18 ������������������ Date of : 52 Report #: [id number] foot as well as ulceration with foul-smelling drainage at the lateral portion of the right fifth MTP. NEUROLOGIC: The patient has right hemiparesis. He is aphasic. LABORATORY DATA: Includes sodium 136, potassium 5.2, chloride 102, CO2 of 27, BUN 109, creatinine 2.9, glucose 200. Albumin is low at 2.1. White blood cell count 7.5 with a hemoglobin of 6.7. CLINICAL IMPRESSION: 1. 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 2. Osteomyelitis of the right fifth metatarsal. 3. Acute kidney injury. 4. Prior cerebrovascular accident, right hemiparesis and aphasia. 5. Status post PEG tube placement. 6. Hypertension. 7. Diabetes mellitus. 8. History of atrial fibrillation. RECOMMENDATIONS: At this point in time, the patient is scheduled to undergo fifth ray resection with Dr. Bolton, which I agree with. We recommend bordered foam until surgery and PRAFO boots while he is in bed. He will need low air loss mattress and q. 2 hour turning position, he is unable to turn himself. He will need aggressive nutritional support to manage his moderate protein-calorie malnutrition. I appreciate being asked to see him in consultation. ��������������������������������������������� <ELECTRONICALLY SIGNED> ���������������������������������������� By: Giovanny Andrade MD ��������������������������������������������� 08/13/18 0819 1132 [id number] Giovanny Andrade MD /nt
== END 2018-08-09 19:00 | DRG 616 ==
LOC: ER 16:12 → 2N 17:22 → EROBS 17:22 → 2N 19:32
PROVIDERS: Anesthesiology; Emergency Medicine; Internal Medicine Nephrology; Nurse Practitioner Adult Health; ADMIT Internal Medicine
PROC: 30233N1 Transfusion of Nonautologous Red Blood Cells into Peripheral Vein, Percutaneous Approach (ICD-10-PCS; 2018-08-03)
PROC: 0Y6X0Z0 Detachment at Right 5th Toe, Complete, Open Approach (ICD-10-PCS; principal; 2018-08-04)
DX: E11.69 Type 2 diabetes mellitus with other specified complication (principal); E43 Unspecified severe protein-calorie malnutrition; M86.8X7 Other osteomyelitis, ankle and foot; M00.9 Pyogenic arthritis, unspecified; I69.353 Hemiplegia and hemiparesis following cerebral infarction affecting right non-dominant side; I13.0 Hypertensive heart and chronic kidney disease with heart failure and stage 1 through stage 4 chronic kidney disease, or unspecified chronic kidney disease; N17.9 Acute kidney failure, unspecified; N18.4 Chronic kidney disease, stage 4 (severe); E78.5 Hyperlipidemia, unspecified; K21.9 Gastro-esophageal reflux disease without esophagitis; N40.0 Benign prostatic hyperplasia without lower urinary tract symptoms; M10.9 Gout, unspecified; I50.9 Heart failure, unspecified; E11.22 Type 2 diabetes mellitus with diabetic chronic kidney disease; E87.5 Hyperkalemia; I48.2 Chronic atrial fibrillation; G47.33 Obstructive sleep apnea (adult) (pediatric); E11.51 Type 2 diabetes mellitus with diabetic peripheral angiopathy without gangrene; D50.9 Iron deficiency anemia, unspecified; R13.10 Dysphagia, unspecified; I48.91 Unspecified atrial fibrillation; L97.519 Non-pressure chronic ulcer of other part of right foot with unspecified severity; D64.9 Anemia, unspecified; E87.6 Hypokalemia; I25.2 Old myocardial infarction; Z88.0 Allergy status to penicillin; Z88.2 Allergy status to sulfonamides; Z88.8 Allergy status to other drugs, medicaments and biological substances; Z87.891 Personal history of nicotine dependence; Z93.1 Gastrostomy status; Z79.899 Other long term (current) drug therapy
CPT/HCPCS: 10081; 50010; 50101; 50386; 50951; 57091; 57178; 62110; 62900; 70005

== ENCOUNTER 2018-08-17 11:54 | Inpatient (IN) | payer OTHER ==
[~2018-08-17] VITALS: Ht 185.4 cm; Wt 96.1 kg
[2018-08-17] VITALS (24 sets, daily range): BP systolic 71–105; BP diastolic 38–58
--- NOTE | ~2018-08-17 | HC ---
[facility] [place] [address] CONSULTATION Name: GEORGIANA ARIAS Room #: 204-P ADM IN M.R.#: [id number] Admission: 08/17/18 ������������������ Attend Phys: Isiah Nam MD Discharge: ������������������ Date of : 51 Report #: [id number] THIS REPORT FOR: //name// CC: Isiah Nam DATE OF SERVICE: 08/18/2018 CHIEF COMPLAINT: Status post wound debridement with cauterization and delayed primary closure, postoperative day #1. Anemia with acute blood loss, hypotension and hyperkalemia. Prior osteomyelitis to the right fifth metatarsal with deep tissue infection that grew polymicrobial with VRE, MRSA, Prevotella, Proteus, E. coli. He is currently on parenteral linezolid and meropenem. He has been afebrile with stable vital signs. He has had no visible bleeding through the bandage since surgery yesterday. LABORATORY DATA: WBC 11.1, RBC 3.0, hemoglobin 8.9, hematocrit 26.3, platelets 201. BUN 61, creatinine 1.8, glucose 141, potassium 5.6. Albumin 2.1. PHYSICAL EXAMINATION: The incision is well approximated along the proximal aspect with visible Gelfoam between the sutures. No active bleeding, no pallor or cyanosis. The foot is warm with no signs of acute vascular embarrassment. There is a superficial blister across the dorsum of the right foot without inflammation or signs of cellulitis. IMPRESSION: Postoperative day #1 for wound debridement with cauterization and delayed primary closure. PLAN: The incision was cleansed and redressed with ABDs, Kerlix and Popeye bandages. Hold Eliquis at least 1 more additional day. I will follow daily during his hospitalization. ��������������������������������������������� ���������������������������������������� By: ��������������������������������������������� 1309 0225 Mehrdad Gonsalez, EDDY /nt
--- NOTE | ~2018-08-17 | O ---
[facility] [address] [address] OPERATIVE REPORT Name: GEORGIANA ARIAS Room #: 243-P ADM IN M.R.#: [id number] Admission: 08/17/18 ������������������ Attend Phys: Isiah Nam MD Discharge: ������������������ Date of : 51 Report #: [id number] THIS REPORT FOR: //name// CC: Isiah Nam DATE OF SERVICE: 08/17/2018 SURGEON: Mehrdad Gonsalez DPM PREOPERATIVE DIAGNOSIS: Ulceration of right lateral foot with prior partial fifth ray resection and bleeding. POSTOPERATIVE DIAGNOSIS: Ulceration of right lateral foot with prior partial fifth ray resection and bleeding. PROCEDURE: 1. Debridement right foot wound with chemocautery. 2. Delayed primary closure of pedicle skin flap. ANESTHESIA: MAC. INJECTABLES: 30 mL of 0.5% Marcaine plain preoperatively. HEMOSTASIS: Right ankle pneumatic tourniquet at 300 mmHg. SUTURES: 2-0 nylon. SPECIMENS: None. CULTURES: None. ESTIMATED BLOOD LOSS: Roughly 200 mL. DESCRIPTION OF PROCEDURE: The patient was brought to the OR and left in his hospital bed to facilitate the procedure. A well-padded right ankle pneumatic tourniquet was placed and a local anesthetic block was given to the right lateral ankle, MAC anesthesia was administered by the anesthesiologist. The extremity was prepped and draped aseptically. After exsanguination, the tourniquet was inflated. The surgical dressing was removed and there was some active bleeding, even with the tourniquet inflated. I ligated vessels using combination of electrocautery as well as 3-0 Vicryl sutures. The wound was debrided of subcutaneous tissue in certain areas to achieve cleaner and preparer wound bed. No bone was visible or palpable. There were no signs of abscess or deep tissue infection at present. The wound was irrigated with sterile saline and dried. It was packed with Gelfoam and then a plantar lateral skin flap was mobilized laterally and sutured to the dorsal aspect of the foot with 2-0 nylon in [address] [address] OPERATIVE REPORT Name: GEORGIANA ARIAS Room #: 243-P ADM IN M.R.#: [id number] Admission: 08/17/18 ������������������ Attend Phys: Isiah Nam MD Discharge: ������������������ Date of : 51 Report #: [id number] interrupted fashion. Roughly 70% of the incision was closed primarily, with the distal aspect left open, as there was not enough tissue for closure. The foot was cleansed and dried and dressed with Adaptic, fluffs, ABDs, Kerlix and Popeye. The tourniquet was deflated and the patient left the OR with no complications noted. ��������������������������������������������� ���������������������������������������� By: ��������������������������������������������� 1457 1526 Mehrdad Gonsalez DPM /nt
--- NOTE | ~2018-08-17 | HC ---
[facility] [address] [place] [address] CONSULTATION Name: GEORGIANA ARIAS Room #: 243-P [facility] IN M.R.#: [id number] Admission: 08/17/18 ������������������ Attend Phys: Isiah Nam MD Discharge: ������������������ Date of : 51 Report #: [id number] THIS REPORT FOR: //name// CC: Isiah Nam REASON FOR CONSULTATION: Hyperkalemia and chronic kidney disease. REASON FOR PRESENTATION: Bleeding from his wound. HISTORY OF PRESENT ILLNESS: This is limited due to the patient's cognitive dysfunction. He was brought from his [facility] for bleeding, status post amputation of the fifth digit of his right foot. He is maintained on Eliquis. He is known to have chronic kidney disease. He was on dialysis; however, he was taken off dialysis after recovery of his renal function. He has long-standing diabetes mellitus. I am being consulted to manage his hyperkalemia and elevated creatinine. Of note, this is the fact that the patient has been running low blood pressure. His baseline creatinine is around 1.5. He used to be on dialysis at the [facility]. PAST MEDICAL HISTORY: 1. Diabetes mellitus. 2. Cognitive dysfunction. 3. Chronic kidney disease. 4. Atrial fibrillation. 5. Left hemiplegia and hemiparesis. 6. Dysphagia. 7. Sleep apnea. 8. Peripheral vascular disease. 9. Gout. 10. Coronary artery disease. 11. Seizure disorder. MEDICATIONS: 1. Eliquis. 2. Lipitor. 3. Diltiazem. 4. Potassium. 5. Furosemide. 6. Meropenem. ALLERGIES: 1. PENICILLIN. 2. LEVOFLOXACIN. 3. METHADONE. 4. SULFA DRUGS. SOCIAL HISTORY: He was brought from the [facility]. No further details. [facility] [address] [place] [address] CONSULTATION Name: GEORGIANA ARIAS Room #: 243-P ADM IN M.R.#: [id number] Admission: 08/17/18 ������������������ Attend Phys: Isiah Nam MD Discharge: ������������������ Date of : 51 Report #: [id number] REVIEW OF SYSTEMS: Unobtainable given the patient's cognitive dysfunction. FAMILY HISTORY: Unobtainable given the patient's cognitive dysfunction. PHYSICAL EXAMINATION: GENERAL: He is alert and disoriented. VITAL SIGNS: Blood pressure is 108/48. He did have some hypotensive event yesterday with the blood pressure down to 88/58. HEAD AND NECK: No jugular venous distention, no bruit and no thyromegaly. CHEST: No crackles. CARDIOVASCULAR: No rub. ABDOMEN: Soft and nontender. LOWER EXTREMITIES: Dressing applied over the right foot. Trace edema. LABORATORY DATA: Laboratory values from today reviewed. Hemoglobin is 8.9, up from 6.7. Potassium is down to 5.6 and BUN is 1.8. ASSESSMENT, IMPRESSION AND PLAN: 1. Chronic kidney disease. 2. Hyperkalemia. Anemia due to active blood loss from his wound. 3. Atrial fibrillation. 4. Hypotension. 5. The patient's kidney function is at baseline. His hyperkalemia was treated appropriately. He was taking some potassium supplements. He did have some hypotension yesterday and this has aggravated his renal dysfunction. I will back off his blood pressure medication. 6. Back off Lasix. 7. Primrose his hyperkalemia. His primary care or primary team is addressing his wounds and his bleeding along with his anticoagulation. ��������������������������������������������� ���������������������������������������� By: ��������������������������������������������� 0802 36 Say aDrby MD /nt
--- NOTE | ~2018-08-17 | HC ---
[facility] [place] [address] CONSULTATION Name: GEORGIANA ARIAS Room #: 204-P ADM IN M.R.#: [id number] Admission: 08/17/18 ������������������ Attend Phys: Isiah Nam MD Discharge: ������������������ Date of : 52 Report #: [id number] THIS REPORT FOR: //name// CC: Isiah Nam DATE OF SERVICE: 08/19/2018 CHIEF COMPLAINT: Followup of wound debridement, cauterization and delayed primary closure x 2 days. He has had no significant bleeding since surgery, stable vital signs with normal potassium. He relates some pain, hemoglobin of 7.5 this morning. He is on parenteral meropenem and linezolid with prior osteomyelitis of the fifth metatarsal. LABORATORY DATA: WBC 5.4, ____, 21.8, platelets 170. Sodium 144, potassium 4.7, chloride 111, CO2 of 24, BUN 51, creatinine 1.5, glucose 114, albumin 1.9. PHYSICAL EXAMINATION: GENERAL: The incision is well approximated with no inflammation or cardinal signs of infection. There is no pallor, cyanosis or signs of acute vascular compromise. No active bleeding or drainage. Distal open wound has some yellow fibrous tissue over sparse buds of granulation. There is a dry blister over the dorsum of the foot with no inflammation or drainage. IMPRESSION: Osteomyelitis, right foot, status post fifth ray resection with delayed primary closure. PLAN: The wound was cleansed, dried and redressed with ABDs, Kerlix and Popeye wrap. I ordered a DARIO herbert for offloading. ��������������������������������������������� ���������������������������������������� By: ��������������������������������������������� 1330 0145 Mehrdad Gonsalez DPM /nt
[~2018-08-17 11:54] MED LIST changes: +ASPIR 8181 MG PER TUBE; +CHOLESTYRAMINE PER TUBE; +IPRAT-ALBUT 0.5-3 ML INH; +KLOR-CON20 ME1 PER TUBE; +LINEZOLID600 MG PO; +MEROPENEM-500 MG/50 IVPB; +NITROGLYCERIN0.4 MG SUBLING; +PEPCID20 MG PER TUBE; +PROBIOTIC1 EAC1 PER TUBE
--- NOTE | 2018-08-17 12:10 | NUR ---
PT C EMESIS X2, ORAL SUCTIONING PERFORMED. DR. CHAMBERLAIN AWARE.
--- NOTE | 2018-08-17 12:46 | NUR ---
DR. MANZO AT BEDSIDE. PRESSURE DRESSING APPLIED TO R FOOT. BLEEDING HAS SLOWED.
--- NOTE | 2018-08-17 12:50 | NUR ---
EMESIS NOTED, ORDERS RECEIVED.
[2018-08-17 12:57] LABS: MONOCYTES 5.4 % (1.0-8.0)
[2018-08-17 12:59] LABS: ABSOLUTE NEUTROPHILS 6.5 thou/uL (1.4-8.2); BASOPHILS 0.9 % (0.0-2.0); EOSINOPHILS 2.5 % (0.0-3.0); LYMPHOCYTES 16.3 % (24.0-44.0); MCH 26.6 pg (26.0-34.0); MCHC 32.5 g/dL (28.0-37.0); MCV 81.7 fL (80.0-100.0); PLATELET COUNT 339 thou/uL (150-400); POLYS 74.9 % (36.0-66.0); RBC 2.26 mil/uL (4.50-6.00); RDW 22.1 % (10.5-14.5); WBC 8.7 thou/uL (4.0-11.0)
[2018-08-17 13:02] LABS: HEMATOCRIT 18.5 % (42.0-52.0)
[2018-08-17 13:04] LABS: CALCIUM 8.1 mg/dL (8.5-10.1); CREATININE 1.7 mg/dL (0.7-1.3); POTASSIUM 5.9 mmol/L (3.5-5.1)
[2018-08-17 13:08] LABS: APTT 30.8 Seconds (24.5-32.8); INR 1.1; PROTIME 11.8 Seconds (9.3-11.4)
[2018-08-17 13:21] LABS: ANISOCYTOSIS 2+; HYPOCHROMASIA 2+; PLATELET ESTIMATE NORMAL
--- NOTE | 2018-08-17 14:45 | NUR ---
DRSG REMAINS CDI TO R FOOT.
--- NOTE | 2018-08-17 15:30 | NUR ---
OR NURSES HERE FOR PT, ADVISED HE WILL NEED LABS REDRAWN THEY STATE THEY WILL DRAW THESE. PERSONAL BELONGINGS SENT WITH PT.
[2018-08-17 16:11] LABS: HEMOGLOBIN 6.5 gm/dL (14.0-18.0); MCH 26.7 pg (26.0-34.0); MCHC 32.4 g/dL (28.0-37.0); MCV 82.5 fL (80.0-100.0); RBC 2.43 mil/uL (4.50-6.00); RDW 21.1 % (10.5-14.5); WBC 9.5 thou/uL (4.0-11.0)
--- NOTE | 2018-08-17 19:50 | NUR ---
PT ARRIVE TO ICU FROM OR CLOSE TO 1814 THIS SHIFT. PT WAS SETTLED IN ROOM, MADE COMFORTABLE. DR ANGULO LEFT INSTRUCTIONS TO NOT CHANGE DRESSING, REINFORSE IF NEEDED. PT WAS GETTING 2ND UNIT OF BLOOD STARTED IN FREE FLOW TUBING IN OR/RECOVERY ROOM. PLAN OF CARE IS TO CONTINUE TO MONITOR PT CLOSELY. EDUCATION WAS PROVIDED.
[2018-08-17 20:31] LABS: HEMATOCRIT 20.2 % (42.0-52.0); HEMOGLOBIN 6.7 gm/dL (14.0-18.0)
[2018-08-17 22:25] LABS: ALBUMIN 1.8 g/dL (3.4-5.0); CREATININE 1.7 mg/dL (0.7-1.3); TOTAL BILIRUBIN 0.5 mg/dL (<0.1-1.0); TOTAL PROTEIN 5.6 g/dL (6.4-8.2)
[2018-08-17 22:28] LABS: POTASSIUM 6.3 mmol/L (3.5-5.1)
[2018-08-18] VITALS (87 sets, daily range): BP systolic 88–138; BP diastolic 44–75
[2018-08-18 06:55] LABS: HEMATOCRIT 26.3 % (42.0-52.0); HEMOGLOBIN 8.9 gm/dL (14.0-18.0); MCH 29.6 pg (26.0-34.0); MCHC 33.7 g/dL (28.0-37.0); MCV 87.8 fL (80.0-100.0); RDW 18.8 % (10.5-14.5); WBC 11.1 thou/uL (4.0-11.0)
[2018-08-18 07:16] LABS: ALBUMIN 2.1 g/dL (3.4-5.0); CALCIUM 8.3 mg/dL (8.5-10.1); CREATININE 1.8 mg/dL (0.7-1.3); POTASSIUM 5.6 mmol/L (3.5-5.1); TOTAL BILIRUBIN 0.7 mg/dL (<0.1-1.0); TOTAL PROTEIN 6.1 g/dL (6.4-8.2)
--- NOTE | 2018-08-18 07:54 | NUR ---
ASSUMED CARE OF PT AT 1900 ON 08/17/18. PRBC UNIT FROM OR FINISHED SHORTLY AFTER SHIFT CHANGE. HGB RECHECKED AN HOUR LATER AND WAS 6.7. DR. EGAN CALLED AND 2 UNITS OF PRBCs ORDERED. HYPOTENSION IMPROVED BLOOD WAS TRANSFUSED. CRITICAL POTASSIUM CALLED TO DR. EGAN, NS STARTED AT 50 CC/HR. POTASSIUM IMPROVED THIS AM. CATHETER REPLACED WITH COUDE CATHETER DUE TO LEAKAGE AND DRAINING ISSUES. PT HAD ADEQUATE OUTPUT FOLLOWING CATHETER SWITCH. PT C/O SOME NAUSEA AND WAS GIVEN ZOFRAN X1. PT SEEN BY RENAL THIS AM FOR KIDNEY FAILURE AND POTASSIUM MANAGEMENT. ASSESSMENTS AND VITALS DOCUMENTED. WILL CONTINUE TO MONITOR.
[2018-08-19 00:30] VITALS: BP 118/58
--- NOTE | 2018-08-19 00:30 | NUR ---
ASSUMED CARE OF PT AT 1900 ON 08/18/18. PT ALERT AND PLEASANT. BP STABLE AND IMPROVING. RIGHT FOOT DRESSING DRY AND INTACT, NO VISIBLE SIGNS OF BLEEDING. TX ORDERS OBTAINED FROM DR. EGAN AT 2300. REPORT GIVEN TO PEREZ AT 2330 AND PT TRANSPORTED TO CCU AT [place].
[2018-08-19 05:34] VITALS: BP 107/68
[2018-08-19 06:50] LABS: ABSOLUTE NEUTROPHILS 4.1 thou/uL (1.4-8.2); BASOPHILS 0.9 % (0.0-2.0); EOSINOPHILS 2.2 % (0.0-3.0); HEMATOCRIT 21.8 % (42.0-52.0); HEMOGLOBIN 7.1 gm/dL (14.0-18.0); LYMPHOCYTES 13.5 % (24.0-44.0); MCH 29.2 pg (26.0-34.0); MCHC 32.6 g/dL (28.0-37.0); MCV 89.6 fL (80.0-100.0); MONOCYTES 6.7 % (1.0-8.0); PLATELET COUNT 170 thou/uL (150-400); POLYS 76.7 % (36.0-66.0); RBC 2.44 mil/uL (4.50-6.00); RDW 19.5 % (10.5-14.5); WBC 5.4 thou/uL (4.0-11.0)
[2018-08-19 07:09] LABS: ALBUMIN 1.9 g/dL (3.4-5.0); CALCIUM 7.8 mg/dL (8.5-10.1); CREATININE 1.5 mg/dL (0.7-1.3); PHOSPHORUS 3.4 mg/dL (2.5-4.9); POTASSIUM 4.7 mmol/L (3.5-5.1)
[2018-08-19 07:30] VITALS: BP 99/55
--- NOTE | 2018-08-19 07:34 | NUR ---
PT. ARRIVED AROUND MIDNIGHT; ALART; AWAKE; COOPERATIVE; NO C/O PAIN; HAD A SMALL BM; ENTERAL FEEDING AT ARRIVAL AT 30; AT 0345 INCREASE TO 40 ML/H; REASSESSMENT AT 0600; RESIDUAL 50 ML; FEEDING INCREASE TO 50 ML/H; 200 ML FLUSHED AT 0345 PER ORDER; NO N/V; BP WNL; HR BETWEEN 100'S AND 120'S; EARLY ON THE MORNING HR INCREASE TO 130'S, BUT IT DOES NOT SUSTAIN; URINE SHOWED SEDIMENTS AND SOME LIGHT RED COLOR; TURNED FROM SIDE TO SIDE Q2H; 97% ON RA; ABLE TO REST FOR A FEW HOURS; NO APARENT BLEDDING FROM R. FEET; PASSED ON REPORT.
[2018-08-19 13:00] VITALS: BP 114/67
[2018-08-19 15:15] VITALS: BP 117/76
--- NOTE | 2018-08-19 16:42 | H ---
[facility] [place] [address] HISTORY AND PHYSICAL Name: GEORGIANA ARIAS Room #: 204-P ADM IN M.R.#: [id number] Admission: 08/17/18 ������������������ Attend Phys: Isiah Nam MD Discharge: ������������������ Date of : 51 Report #: [id number] THIS REPORT FOR: //name// CC: Isiah Nam DATE OF SERVICE: 08/17/2018 ADMISSION NOTE HISTORY OF PRESENT ILLNESS: The patient is a 67-year-old who was diagnosed to have osteomyelitis of the right fifth metatarsal bone on 08/03/2018. The patient was treated with amputation of the fifth metatarsal bone and he was transferred to detention facility for continuing care to the incision area. The patient was seen by the lumite injector the day before yesterday and he had change of his dressing, but unfortunately he started to have extensive bleeding from the area. For this reason, he was brought back to the Emergency Room to be evaluated. The patient was found to be anemic and the patient was taken yesterday to the OR for stopping bleeding. The patient is known to have a history of diabetes mellitus, atrial fibrillation, and on anticoagulation. Other significant past medical history is significant for atrial fibrillation, type 2 diabetes mellitus, diastolic congestive heart failure, left pleural effusion, status post thoracentesis, hyperlipidemia, hypertension, status post CVA with right hemiparesis and dysphagia. The patient has a PEG tube for feeding. The patient has expressive aphasia. The patient's admission to the hospital during the last visit was complicated with hyperkalemia and acute kidney injury. The patient had a history of aspiration pneumonia, non-ST elevation myocardial infarction and the above-mentioned osteomyelitis. The patient had previous history of parotitis and PEG tube placement. The patient had a history of urinary tract infection and hematuria. ALLERGIES: PENICILLIN, APRICOT, LEVOFLOXACIN, METHADONE, MUSHROOM, SULFA AND SULFADIAZINE. SOCIAL HISTORY: The patient is living in a detention facility. No recent history of smoking, alcohol use or drug use. FAMILY HISTORY: Noncontributory. REVIEW OF SYSTEMS: Unobtainable. PHYSICAL EXAMINATION: VITAL SIGNS: On arrival to the hospital, the patient's temperature was 98.3, pulse 77, respirations 16, blood pressure was 92/50, the patient's blood pressure continued to be soft, but the patient is becoming tachycardic. HEAD AND NECK: Unremarkable. Neck was supple. LUNGS: Clear to auscultation. [facility] [address] [place] [address] HISTORY AND PHYSICAL Name: GEORGIANA ARIAS Room #: 204-P ADM IN M.R.#: [id number] Admission: 08/17/18 ������������������ Attend Phys: Isiah Nam MD Discharge: ������������������ Date of : 51 Report #: [id number] CARDIAC: S1, S2, tachycardic, irregularly irregular. ABDOMEN: Benign. Bowel sounds were positive. EXTREMITIES: Without any edema. The patient has the dressing on the right lower extremity. LABORATORY AND DIAGNOSTIC DATA: The patient's chest x-ray showed new right arm PICC line, bilateral perihilar lung consolidative interstitial infiltration, but that is improved since 08/03/2018, moderate left pleural effusion with secondary atelectasis that is unchanged. The patient's basic metabolic panel showed sodium of 136, potassium 5.9, chloride 105, bicarbonate 25, BUN 60, creatinine 1.7, glucose 209, calcium 8.1. The patient's INR was 1.1 and PTT was 30.8. CBC showed a white count of 8.6, hemoglobin 6, hematocrit 18.5, platelet count 339, neutrophils are 74%. The patient's repeated CBC showed a white count of 9.5, hemoglobin 6.5, hematocrit 20, platelet count 231. Repeated hemoglobin was 6.7. Today's comprehensive metabolic panel showed chloride of 109, CO2 26, BUN 61, creatinine 1.7, AST 21, glucose 129, calcium 8.0, ALT is 12, total protein 5.6, albumin 1.8. ASSESSMENT: 1. Anemia of acute blood loss. 2. Right foot osteomyelitis, status post fifth metatarsal amputation. 3. Atrial fibrillation with rapid ventricular response. 4. Hypotension. 5. Chronic kidney disease. 6. Status post cerebrovascular accident with right hemiparesis. 7. Oropharyngeal dysphagia. 8. Diabetes mellitus. 9. Left pleural effusion. PLAN: The patient was admitted to the hospital with the above-mentioned diagnoses. The patient received 4 units of packed red blood cells. The patient to resume his medications except anticoagulation. The patient to monitor his hemoglobin and hematocrit and continue his transfusion of the blood to keep his hemoglobin above 7. The patient to continue the iron supplement. The patient to continue monitoring of his renal function and electrolytes. ��������������������������������������������� <ELECTRONICALLY SIGNED> ���������������������������������������� By: Isiah Nam MD ��������������������������������������������� 08/19/18 1642 [id number] Isiah Nam MD /nt
[2018-08-19 17:48] LABS: HEMATOCRIT 21.8 % (42.0-52.0); HEMOGLOBIN 7.3 gm/dL (14.0-18.0)
[2018-08-19 19:32] VITALS: BP 124/63
--- NOTE | 2018-08-19 21:35 | NUR ---
PATIENT ALERT AND ORIENTED TO SELF AND PLACE. PATIENT TURNED SIDE TO SIDE AND ASSISTS WITH UPPER EXTREMITIES TO TURN WITH PROMPTED TO HELP. DR WALLS CHANGED DRESSING ON LEFT FOOT SURGERY SITE. PATIENT GIVEN ORAL CARE AND HAD MEDIUM BOWEL MOVEMENT THIS EVENING. INCREASE TUBE FEEDING TO 70ML / HR
--- NOTE | 2018-08-20 01:55 | NUR ---
ASSUMED CARE 1900. VSSS. ASSESSMENT CHARTED. ANSWERS YES/NO WITH HEAD NODES, ALERT TO SELF. AFIB LOW 100'S. Q2 TURNS, PROFO BOOTS ORDERED AND IN PLACE NOW. R FOOT DRESSINGS CDI. PEG FEEDINGS WITH GLYCERNA PER ORDERS, TOLERATED. GREEN PATENT, NO BLOOD NOTED IN URINE, SOME SEDIMENT. DR. EGAN UPDATED ON 1800 LABS AND IF PT NEEDS CPAP, NO NEW ORDERS. PLAN FOR LABS THIS AM. WILL CONTINUE TO MONITOR AND WITH POC.
[2018-08-20 03:57] VITALS: BP 113/71
[2018-08-20 04:29] LABS: ABSOLUTE NEUTROPHILS 3.7 thou/uL (1.4-8.2); BASOPHILS 1.2 % (0.0-2.0); EOSINOPHILS 4.3 % (0.0-3.0); HEMATOCRIT 21.5 % (42.0-52.0); HEMOGLOBIN 7.2 gm/dL (14.0-18.0); LYMPHOCYTES 15.9 % (24.0-44.0); MCH 29.8 pg (26.0-34.0); MCHC 33.3 g/dL (28.0-37.0); MCV 89.5 fL (80.0-100.0); MONOCYTES 7.8 % (1.0-8.0); PLATELET COUNT 176 thou/uL (150-400); POLYS 70.8 % (36.0-66.0); RDW 19.5 % (10.5-14.5); WBC 5.2 thou/uL (4.0-11.0)
[2018-08-20 04:33] LABS: CALCIUM 7.9 mg/dL (8.5-10.1); CREATININE 1.4 mg/dL (0.7-1.3); POTASSIUM 4.6 mmol/L (3.5-5.1)
[2018-08-20 07:15] VITALS: BP 134/65
--- NOTE | 2018-08-20 10:17 | NUR ---
[facility] IN ADM. AND FAXED CLINICAL UPDATE TO FACILITY. DCP TO FOLLOW.
--- NOTE | 2018-08-20 10:50 | NUR ---
patient with recent dc from [facility] 08/09/18 to [facility] were patient resides. patient initally admitted with abnormal labs and had osteo in right foot. He rec toe amputation. Sp with sister Mary who appears frustrated with wound care at [facility]. cont plan to return to facility [place] [facility]. Patient has used all medicare skilled days and at [facility]. Plan return once stable. udpated Rn.
[2018-08-20 11:30] VITALS: BP 123/79; BP 126/79
[2018-08-20 15:30] VITALS: BP 131/73
[2018-08-20 19:35] VITALS: BP 127/70
--- NOTE | 2018-08-20 20:23 | NUR ---
VSS REMAINS AFIB WITH VR 100-114, LUNGS DIMINISHED, O2 SAT RA IS 100%, CT USES ORAL SUCTION, WHITE SPUTUM. TUBE FEEDING/ GLUCERNA CONTINUES AT 70CC/HR, TOLERATING WELL, NO DIARRHEA. GREEN INTACT AND DRAINING CLEAR YELLOW URINE. WILL CONTINUE TO MONITER AND CARE FOR PT PER PLAN OF CARE
--- NOTE | 2018-08-21 04:08 | NUR ---
ASSUMED CARE 1900. VSS. ASSESSMENT CHARTED. PT DENIES PAIN, ANSWERS YES/NO, ALERT TO SELF. Q2 TURNS. URINARY GREEN CLEAR YELLOW. GLUCERNA 1.2 @70ML/HR, Q6 200 ML FLUSHES PER PEG-TOLERATED NO RESIDULE. PLAN FOR LABS THIS AM. WILL CONTINUE TO MONITOR AND WITH POC.
[2018-08-21 04:27] LABS: ABSOLUTE NEUTROPHILS 3.8 thou/uL (1.4-8.2); BASOPHILS 1.5 % (0.0-2.0); EOSINOPHILS 4.7 % (0.0-3.0); HEMATOCRIT 21.6 % (42.0-52.0); HEMOGLOBIN 7.3 gm/dL (14.0-18.0); LYMPHOCYTES 15.1 % (24.0-44.0); MCH 29.9 pg (26.0-34.0); MCHC 33.7 g/dL (28.0-37.0); MONOCYTES 9.3 % (1.0-8.0); PLATELET COUNT 196 thou/uL (150-400); POLYS 69.4 % (36.0-66.0); RBC 2.43 mil/uL (4.50-6.00); RDW 20.2 % (10.5-14.5); WBC 5.4 thou/uL (4.0-11.0)
[2018-08-21 04:43] LABS: CREATININE 1.3 mg/dL (0.7-1.3); POTASSIUM 4.5 mmol/L (3.5-5.1)
[2018-08-21 06:06] VITALS: BP 134/69
[2018-08-21 07:15] VITALS: BP 144/79
[2018-08-21] MEDS ORDERED: LASIX 40 MG TAB40 M2 PO (07:15)
[2018-08-21] MEDS ORDERED: ELIQUIS2.5 MG PER TUBE (07:16)
--- NOTE | 2018-08-21 09:59 | NUR ---
PT. DISCHARGING TODAY BACK TO [facility]. FAXED DC ORDERS/SUMMARY TO FACILITY AND SPOKE WITH JAMIE IN ADM, SHE RECEIVED DC ORDERS. DCP ARRANGED TRANSPORT THROUGH [facility] #[id number]. LEFT MSG WITH PT'S SISTER (ANGELO) THAT PT. DISCHARGING TODAY AND TIME OF TRANSPORT. UNIT NOTIFIED AND CHART COPY PER US. RN TO CALL REPORT TO [phone].
[2018-08-21 11:00] VITALS: BP 134/74
== END 2018-08-21 17:05 | DRG 901 ==
LOC: ER 11:54 → EROBS 13:28 → 2N 13:28 → TBA 15:33 → ICU 18:39 → 2N 08-19 00:07
PROVIDERS: Anesthesiology; Student in an Organized Health Care Education/Training Program; ADMIT Internal Medicine
PROC: 0JBQ0ZZ Excision of Right Foot Subcutaneous Tissue and Fascia, Open Approach (ICD-10-PCS; principal; 2018-08-17)
PROC: 30233N1 Transfusion of Nonautologous Red Blood Cells into Peripheral Vein, Percutaneous Approach (ICD-10-PCS; principal; 2018-08-17)
PROC: 0Y3M0ZZ Control Bleeding in Right Foot, Open Approach (ICD-10-PCS; principal; 2018-08-17)
DX: M96.830 Postprocedural hemorrhage of a musculoskeletal structure following a musculoskeletal system procedure (principal); E43 Unspecified severe protein-calorie malnutrition; D62 Acute posthemorrhagic anemia; I50.30 Unspecified diastolic (congestive) heart failure; M86.8X7 Other osteomyelitis, ankle and foot; I69.351 Hemiplegia and hemiparesis following cerebral infarction affecting right dominant side; J90 Pleural effusion, not elsewhere classified; N18.4 Chronic kidney disease, stage 4 (severe); N17.9 Acute kidney failure, unspecified; E11.621 Type 2 diabetes mellitus with foot ulcer; L97.519 Non-pressure chronic ulcer of other part of right foot with unspecified severity; E11.22 Type 2 diabetes mellitus with diabetic chronic kidney disease; I48.91 Unspecified atrial fibrillation; E78.5 Hyperlipidemia, unspecified; K21.9 Gastro-esophageal reflux disease without esophagitis; N40.0 Benign prostatic hyperplasia without lower urinary tract symptoms; R13.12 Dysphagia, oropharyngeal phase; E11.69 Type 2 diabetes mellitus with other specified complication; E11.51 Type 2 diabetes mellitus with diabetic peripheral angiopathy without gangrene; E87.5 Hyperkalemia; I95.9 Hypotension, unspecified; G31.84 Mild cognitive impairment of uncertain or unknown etiology; I25.10 Atherosclerotic heart disease of native coronary artery without angina pectoris; G40.909 Epilepsy, unspecified, not intractable, without status epilepticus; M10.9 Gout, unspecified; Y83.5 Amputation of limb(s) as the cause of abnormal reaction of the patient, or of later complication, without mention of misadventure at the time of the procedure; Y92.89 Other specified places as the place of occurrence of the external cause; Z91.81 History of falling; I25.2 Old myocardial infarction; Z79.01 Long term (current) use of anticoagulants; Z79.4 Long term (current) use of insulin; Z79.899 Other long term (current) drug therapy; Z88.1 Allergy status to other antibiotic agents; Z88.5 Allergy status to narcotic agent; Z88.0 Allergy status to penicillin; Z88.2 Allergy status to sulfonamides; Z91.018 Allergy to other foods
CPT/HCPCS: 10078; 10081; 50010; 50101; 50386; 56524; 56525; 57091; 62110; 62850; 70005

== ENCOUNTER 2018-09-13 10:16 | Emergency (ER) | payer OTHER ==
[~2018-09-13] VITALS: Ht 182.9 cm; Wt 124.7 kg
[~2018-09-13 10:16] MED LIST changes: +LASIX 40 MG TAB40 M2 PO
[2018-09-13] MEDS ORDERED: GLUCAGEN1 M2 IM (10:43)
[2018-09-13] MEDS ORDERED: PREVALITE PACKET4 GM PER TUBE (10:51)
[2018-09-13] MEDS ORDERED: LINEZOLID600 MG PER TUBE (10:53)
[2018-09-13] MEDS ORDERED: ATORVASTATIN CA40 MG PO (10:58)
[2018-09-13] MEDS ORDERED: MERREM 500500 MG/12 IV (10:58)
[2018-09-13 11:45] VITALS: BP 127/73
== END 2018-09-13 11:46 ==
LOC: ER 10:16
DX: Z43.1 Encounter for attention to gastrostomy (principal); E11.22 Type 2 diabetes mellitus with diabetic chronic kidney disease; N18.4 Chronic kidney disease, stage 4 (severe); Z99.2 Dependence on renal dialysis; I48.91 Unspecified atrial fibrillation; E78.5 Hyperlipidemia, unspecified; K21.9 Gastro-esophageal reflux disease without esophagitis; N40.0 Benign prostatic hyperplasia without lower urinary tract symptoms; M10.9 Gout, unspecified; Z88.0 Allergy status to penicillin; Z88.1 Allergy status to other antibiotic agents; Z88.2 Allergy status to sulfonamides; Z88.5 Allergy status to narcotic agent; Z88.8 Allergy status to other drugs, medicaments and biological substances

== ENCOUNTER 2018-12-26 00:51 | Inpatient (IN) | payer OTHER ==
[2018-12-26] VITALS (7 sets, daily range): BP systolic 119–133; BP diastolic 52–78
[~2018-12-26] VITALS: Ht 182.9 cm; Wt 94.3 kg
[~2018-12-26 00:51] MED LIST changes: +GLUCAGEN1 M2 IM; +LINEZOLID600 MG PER TUBE; +MERREM 500500 MG/12 IV; +PREVALITE PACKET4 GM PER TUBE
[2018-12-26 04:25] LABS: ANION GAP 7 mmol/L (7-16); BUN 49 mg/dL (7-18); CHLORIDE 100 mmol/L (98-107); CO2 31 mmol/L (21-32); CREATININE 1.5 mg/dL (0.7-1.3); GLUCOSE 156 mg/dL (74-106); POTASSIUM 4.7 mmol/L (3.5-5.1); SODIUM 138 mmol/L (136-145)
[2018-12-26 04:26] LABS: ALBUMIN 2.2 g/dL (3.4-5.0); CALCIUM 8.7 mg/dL (8.5-10.1); DIRECT BILIRUBIN 0.6 mg/dL (<0.1-0.3); SGOT 39 U/L (15-37); SGPT 39 U/L (16-63); TOTAL BILIRUBIN 0.9 mg/dL (<0.1-1.0); TOTAL PROTEIN 7.5 g/dL (6.4-8.2); TROPONIN-I <0.06 ng/mL (<0.06)
[2018-12-26 04:27] LABS: APTT 34.5 Seconds (24.5-32.8); HEMATOCRIT 31.8 % (42.0-52.0); HEMOGLOBIN 10 gm/dL (14.0-18.0); MCH 24.6 pg (26.0-34.0); MCHC 31.5 % (28.0-37.0); MCV 78.1 fL (80.0-100.0); PROTIME 10.5 Seconds (9.3-11.4); RBC 4.07 mil/uL (4.50-6.00); WBC 17.3 thou/uL (4.0-11.0)
[2018-12-26 04:28] LABS: BASOPHILS 0.2 % (0.0-2.0); EOSINOPHILS 0.1 % (0.0-3.0); LYMPHOCYTES 3.2 % (24.0-44.0); MONOCYTES 5.4 % (1.0-8.0); PLATELET COUNT 316 thou/uL (150-400); POLYS 91.1 % (36.0-66.0); RDW 19.2 % (10.5-14.5)
--- NOTE | 2018-12-26 07:46 | EKG ---
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 : 1950 Requested By: Ean Hardy Order Number: [id number] MD: Jean Pollard Measurements Intervals [place] Rate: 117 P: [place]: QRS: 48 QRSD: 75 T: 62 QT: 355 QTc: 496 Interpretive Statements Atrial fibrillation Low voltage, extremity leads Borderline prolonged QT interval Compared to ECG 08/02/2018 17:23:31 ST (T wave) deviation no longer present Electronically Signed On 12-26-2018 7:46:32 CDT by Jean Pollard [email or web address] ��������������������������������������������� <ELECTRONICALLY SIGNED> ���������������������������������������� By: Jean Pollard MD, [facility] ��������������������������������������������� 12/26/18 0746 [id number] Jean Pollard MD, [facility] /EPI
--- NOTE | 2018-12-26 11:18 | NUR ---
WOUND CONSULT; THE RIGHT FOOT HAS YELLOWISH, FIBRINOUS TISSUE IN THE WOUND BED. BILATERAL BUTOCKS HAS AREAS CONSISTANT WITH SHEARING INJURY. RECOMMENDATION; CONSULT DR JUAN SILVA FOR HIS MEDICAL OPINION. FOR NOW USE THERAHONEY CHANGE M/W/F PRN DISCUSSED WITH GAL
--- NOTE | 2018-12-26 11:30 | NUR ---
Nutrition: REC when appropriate, start Glucerna 1.2 to run at 70 mL/hr x 24 hrs.
--- NOTE | 2018-12-26 14:41 | NUR ---
ON-GOING ASSESSMENT: CM REVIEWED CHART AND MET WITH PATIENT AT THE BEDSIDE. PT WAS ADMITTED WITH [facility]. 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 PLANS ARE FOR PATIENT TO RETURN TO [facility] ONCE MEDICALLY. CM SPOKE WITH PATIENTS SISTER ANGELO AND SHE IS AGREEABLE WITH DISCHARGE PLAN. CM ALSO SPOKE WITH JAMIE AT [facility] TO UPDATE AND FAXED REFERRAL. CM WILL CONTINUE TO FOLLOW TO ASSIST NEEDED.
--- NOTE | 2018-12-26 18:44 | NUR ---
PATIENT NOW SLEEPING AND HAS NOT VOICED ANY COMPLAIN OF PAIN . HE REMAINS NPO AND SMALL WATER FLUSH WITH MEDS. NEW PRAFO BOOTS ON BILAT FEET. PEG TUBE FLUSHES WITH NO DIFFICULTY. WILL CONT WITH PLAN OF CARE.
[2018-12-27 00:10] VITALS: BP 120/71
[2018-12-27 05:40] VITALS: BP 132/68
[2018-12-27 06:01] LABS: BASOPHILS 0.4 % (0.0-2.0); EOSINOPHILS 2.2 % (0.0-3.0); MCH 24.6 pg (26.0-34.0); MCHC 30.9 g/dL (28.0-37.0); MCV 79.7 fL (80.0-100.0); MONOCYTES 5.5 % (1.0-8.0); PLATELET COUNT 293 thou/uL (150-400); POLYS 85.9 % (36.0-66.0); RBC 3.64 mil/uL (4.50-6.00); WBC 9.3 thou/uL (4.0-11.0)
[2018-12-27 06:08] LABS: CALCIUM 8.4 mg/dL (8.5-10.1); CREATININE 1.2 mg/dL (0.7-1.3); POTASSIUM 4.3 mmol/L (3.5-5.1)
--- NOTE | 2018-12-27 06:48 | NUR ---
SLEPT MOST OF SHIFT. TURNED EVERY 2 HOURS FOR COMFORT AND SKIN CARE. INCONTINENT X2 TONIGHT PRIOR TO MALE CATH REAPPLIED AT 2215. EXPLAIN ALL CARES PERFORMED. WORKING ON GOALS AND PLAN OF CARE FOR NOC. PROGRESSING SLOWLY TOWARDS DISCHARGE GOALS. CONTINUE TO ASSES.
[2018-12-27 07:01] LABS: URINE BILIRUBIN NEGATIVE (Negative); URINE BLOOD TRACE (Negative); URINE CLARITY SL CLOUDY; URINE COLOR YELLOW; URINE GLUCOSE-RANDOM* NEGATIVE (Negative); URINE KETONES NEGATIVE (Negative); URINE NITRITE-REFLEX NEGATIVE (Negative); URINE PROTEIN (DIPSTICK) 2+ (Negative); URINE UROBILINOGEN 0.2 E.U./dl (0.2-1.0)
[2018-12-27 07:05] LABS: URINE LEUKOCYTES-REFLEX 2+ (Negative)
[2018-12-27 07:26] LABS: URINE RBC 3-10 Few /HPF (0-2); URINE WBC-REFLEX >25 Many /HPF (0-5)
[2018-12-27 07:28] LABS: BACTERIA-REFLEX >30 Many /HPF (None Seen); CRYSTALS None Seen /LPF (None Seen); FINE GRANULAR CASTS 0-3 Few /LPF (None Seen); SQUAMOUS 0-3 Few /LPF (0-3)
[2018-12-27 08:01] VITALS: BP 141/90
[2018-12-27 12:04] VITALS: BP 137/87
[2018-12-27] MEDS ORDERED: IPRAT-ALBUT 0.5-3 ML INH ×2 (13:25→13:26)
[2018-12-27] MEDS ORDERED: ZANTAC 150MG T150 MG PO (13:26)
[2018-12-27] MEDS ORDERED: SANTYL OINTMENT30 G1 TOP ×2 (13:28→13:30)
[2018-12-27] MEDS ORDERED: TYLENOL325 MG PER TUBE (13:30)
[2018-12-27] MEDS ORDERED: ZOFRAN ODT4 MG DISSOLVE (13:31)
--- NOTE | 2018-12-27 15:05 | NUR ---
on-going assessment: cm spoke with patients sister onel. SHE STATES PATIENT WAS IN SERVICE WITH HOSPICE AND SHE REPORTS THIS WAS A MISTAKE AND IF SHE KNEW WHAT HOSPICE SERVICE WAS SHE WOULD HAVE NEVER SIGNED HIM UP FOR IT. SHE STATES SHE DOES NOT WANT HIM TO RESUME HOSPICE AT DISCHARGE. CM WILL CONTINUE TO FOLLOW TO ASSIST NEEDED. PLANS TO RETURN TO [facility] ONCE MEDICALLY STABLE.
[2018-12-27 15:22] VITALS: BP 144/76
--- NOTE | 2018-12-27 16:05 | HC ---
[facility] [place] [address] CONSULTATION Name: GEORGIANA ARIAS Room #: 363-P [facility] IN M.R.#: [id number] Admission: 12/26/18 ������������������ Attend Phys: Isiah Nam MD Discharge: ������������������ Date of : 51 Report #: [id number] THIS REPORT FOR: //name// CC: Isiah Nam DATE OF SERVICE: 12/26/2018 CHIEF COMPLAINT: Right foot ulceration. HISTORY OF PRESENT ILLNESS: This is a 68-year-old male patient who was sent to the Emergency Department from his [facility] with fever and cough. He has had recurrent pneumonia and has had a history of previous cerebrovascular accident with a right hemiparesis. He has had significant foot infection with fifth ray resection of his right foot recently. The patient has recently been on hospice, but his sister who is his DPOA revoked his hospice on 12/19/2018 to pursue treatment. He has had a history of recurrent left pleural effusion with concern for possible lung mass. He has not had a followup CT since being on hospice. The patient can provide no information about himself at this time. PAST MEDICAL HISTORY: The patient's past medical history is positive for recurrent aspiration pneumonia, chronic renal failure, type 2 diabetes mellitus, atrial fibrillation, left hemiplegia, dysphagia, hyperlipidemia, gastroesophageal reflux, benign prostatic hypertrophy, sleep apnea requiring BiPAP, history of gout, congestive heart failure, seizures and right foot wound, requiring a fifth ray resection. SOCIAL HISTORY: The patient is a former smoker. No history of alcohol use. FAMILY HISTORY: Unknown. REVIEW OF SYSTEMS: Unobtainable due to the patient's inability to answer questions. ALLERGIES: PENICILLIN, APRICOTS, LEVAQUIN, METHADONE, MORPHINE, MUSHROOMS, QUINOLONES, SULFA AND SULFADIAZINE. MEDICATIONS: Include insulin, Glucagon, lactobacillus, ferrous sulfate, diltiazem, terazosin, furosemide and apixaban. PHYSICAL EXAMINATION: VITAL SIGNS: At this time include temperature 98.6, pulse 100, respiratory rate of 16 and blood pressure 124/58. GENERAL: This is a chronically ill-appearing male patient, who appears to be in no obvious distress. HEENT: Head normocephalic. Nose and throat are clear. NECK: Supple. [facility] [address] [place] [address] CONSULTATION Name: GEORGIANA ARIAS Room #: 363-P ADM IN M.R.#: [id number] Admission: 12/26/18 ������������������ Attend Phys: Isiah Nam MD Discharge: ������������������ Date of : 51 Report #: [id number] LUNGS: Diminished. HEART: Irregular, without murmur. ABDOMEN: Soft. Bowel sounds present. SKIN: Sacral gluteal region demonstrates what appears to be a circular ulceration in the right perirectal region. This does have the appearance of somewhat of a stage 3 pressure ulcer, but it is in an odd location. It is not over any bony surfaces or in a typical pressure location. This would raise some concern for possible malignancy. EXTREMITIES: Examination of the lower extremities demonstrates he has an absent fifth ray and a healing surgical incision line with a little bit of eschar along the incision line, but otherwise, it seems well intact and appears to be healing well. He has abrasion or pressure ulceration over the dorsal aspect of the foot. I suspect this is related to footwear or stocking and is really unstageable, but is pressure related. NEUROLOGIC: The patient has right hemiparesis. He is aphasic. LABORATORY DATA: Sodium 138, potassium 4.7, chloride 100, CO2 of 31, BUN 49, creatinine 1.5 and glucose 156. Albumin is low at 2.2. White blood cell count 17.3 with a hemoglobin of 10. CLINICAL IMPRESSION: 1. Unstageable pressure ulceration over the dorsal aspect of the right foot. 2. Healing surgical incision following right fifth ray resection. 3. Perirectal ulceration that would raise some concern for possible malignancy. 4. History of cerebrovascular accident with right-sided weakness. 5. History of atrial fibrillation. RECOMMENDATIONS: The patient will be placed on low air loss mattress with q. 2 hour. turning and repositioning. We will recommend moisture barrier cream to the perirectal region. We will recommend Medihoney and bordered foam to the dorsal aspect of the right foot. I suspect that it would be prudent to biopsy the ulceration in the perirectal region to exclude a malignancy there. This recommendation is based on its somewhat atypical appearance in the perirectal region as well as his history of the possible lung mass. He will need low air loss mattress with q. 2 hour turning and repositioning and ongoing nutritional support. I appreciate being asked to see him in consultation. ��������������������������������������������� <ELECTRONICALLY SIGNED> ���������������������������������������� By: Giovanny Andrade MD ��������������������������������������������� 12/27/18 1605 1526 [id number] Giovanny Andrade MD /nt
--- NOTE | 2018-12-27 16:47 | NUR ---
PATIENT HAS RESTED IN BED THROUGH THE DAY. CONT TO PROGRESS TOWARDS DISCHARGE GOALS. TURNED Q2. CONDOM CATH IN PLACE AND FUCNTIONING OPTIMALLLY. WILL CONT WITH PLAN OF CARE.
[2018-12-27 20:56] VITALS: BP 152/81
--- NOTE | 2018-12-27 22:27 | HC ---
[facility] [place] [address] CONSULTATION Name: GEORGIANA ARIAS Room #: 363-P [facility] IN M.R.#: [id number] Admission: 12/26/18 ������������������ Attend Phys: Isiah Nam MD Discharge: ������������������ Date of : 51 Report #: [id number] THIS REPORT FOR: //name// CC: Isiah Nam DATE OF SERVICE: 12/26/2018 INFECTIOUS DISEASE CONSULTATION REASON FOR CONSULTATION: I was asked to evaluate concerning healthcare-associated pneumonia. HISTORY OF PRESENT ILLNESS: The patient was a 68-year-old transferred from [facility] with suspected aspiration pneumonia associated with cough, fever and congestion. He is now on 2 liters of oxygen per nasal cannula. He does have previous stroke and aspiration issues. He has had emesis in the last several days. He does have a PEG tube for feeding. Previously, he had been on hospice, but this was revoked. He has had issues with congestive heart failure, left pleural effusion and a possible lung mass. Most recently, he was treated for pneumonia with clindamycin last week. Did not have any microbiology reports to review. He has chronic kidney disease, history of diabetes and congestive heart failure along with atrial fibrillation. He has had no hemoptysis. Denies any pleuritic chest pain. Now on 2 liters of oxygen per nasal cannula. REVIEW OF SYSTEMS: A 10-point review of systems notes a PEG tube in place. Peripheral IV in place. He has had no indwelling Medina catheter. He is incontinent of urine and stool. He has had previous right first ray amputation and has a wound to the medial mid foot, which has been dressed. Further 10-point review of system was negative, other than what has been described above. ALLERGIES: PENICILLIN WITH ANAPHYLAXIS, although he does tolerate meropenem. SULFA, LEVAQUIN, METHADONE, MORPHINE, MUSHROOMS AND SULFADIAZINE. MEDICATIONS: As noted on her MAR, now on vancomycin and meropenem. PAST MEDICAL HISTORY: Pneumonia, chronic kidney disease, diabetes, atrial fibrillation, previously on dialysis, left hemiparesis following a stroke, dysphagia, aphasia, hyperlipidemia, gastroesophageal reflux, BPH, obstructive sleep apnea, gout, ME, congestive heart failure and seizures and first ray amputation on the right. FAMILY HISTORY: Noncontributory. [facility] [address] [place] [address] CONSULTATION Name: GEORGIANA ARIAS Room #: 363-P ADM IN M.R.#: [id number] Admission: 12/26/18 ������������������ Attend Phys: Isiah Nam MD Discharge: ������������������ Date of : 51 Report #: [id number] SOCIAL HISTORY: Past smoker. No significant alcohol intake. PHYSICAL EXAMINATION: VITAL SIGNS: Afebrile. Heart rate 100-120, blood pressure 124/58 on 2 liters of oxygen per nasal cannula. GENERAL: The patient was awake, but noncommunicative. He was able to follow simple commands. SKIN: With a wound to the medial aspect of his right foot. Previous right first ray amputation. No palpable adenopathy. Peripheral IV of the right hand was without erythema or drainage. EYES: Without conjunctivitis. MOUTH: Without mucositis. NECK: Supple. LUNGS: Crackles heard posteriorly, most predominant in the left side. No consolidation. HEART: Regular, without any appreciable murmur, gallop or rub. ABDOMEN: Soft, nontender. His PEG site was unremarkable, with no erythema or drainage. No appreciable masses or hepatosplenomegaly. GENITOURINARY: External genitalia with no masses or lesions identified. He is incontinent of urine. Perianal examination was unremarkable. Rectal examination not performed. EXTREMITIES: Without clubbing or cyanosis. He had 1+ lower extremity edema. Right knee effusion. Pulses were palpable in his feet. He had left hemiparesis evident. PSYCHIATRIC: Mood was sedate. LABORATORY STUDIES: Sodium 138, potassium 4.7, bicarbonate 31 and creatinine 1.5. Alkaline phosphatase 448, bilirubin 0.9, AST 39 and ALT 39. Hemoglobin 10, platelet count 316,000 and white count 17.3. Blood cultures are pending. Chest x-ray with bilateral pulmonary infiltrates, consistent with edema along with left greater than right basilar infiltrates and left effusion. IMPRESSION: A 68-year-old with healthcare-associated aspiration pneumonia and congestive heart failure along with chronic kidney disease. He has anemia as well. Wound to the right foot appears stable. No other intra-abdominal issues. Would also like to check a urine sample. HE HAS MULTIPLE DRUG ALLERGIES. RECOMMENDATIONS: We will continue with vancomycin and meropenem following culture results. We would like sputum culture, urinalysis and urine culture if indicated. Check BNP and give diuresis. Follow up CBC and chemistry. Continue with contact precautions, pending further information. ��������������������������������������������� <ELECTRONICALLY SIGNED> ���������������������������������������� By: Mehrdad Buchanan MD ��������������������������������������������� 12/27/18 [id number] Mehrdad Buchanan MD /nt
--- NOTE | 2018-12-28 03:54 | NUR ---
Patient making slow progress towads outcome goals. Oxygenaton optimal with 2L/NC, loose non productive. No nausea. IVFluids infusing. Diuresing from Lasix. High fall risks, fall precautions in place. Turnes to sides q 2 hours.
[2018-12-28 05:00] VITALS: BP 109/63
[2018-12-28 05:16] LABS: ABSOLUTE NEUTROPHILS 6.4 thou/uL (1.4-8.2); BASOPHILS 0.5 % (0.0-2.0); EOSINOPHILS 2.4 % (0.0-3.0); HEMATOCRIT 30.6 % (42.0-52.0); HEMOGLOBIN 9.6 gm/dL (14.0-18.0); LYMPHOCYTES 4.7 % (24.0-44.0); MCH 24.7 pg (26.0-34.0); MCHC 31.4 g/dL (28.0-37.0); MCV 78.7 fL (80.0-100.0); PLATELET COUNT 333 thou/uL (150-400); POLYS 86.4 % (36.0-66.0); RBC 3.89 mil/uL (4.50-6.00); RDW 18.6 % (10.5-14.5); WBC 7.4 thou/uL (4.0-11.0)
[2018-12-28 05:32] LABS: CALCIUM 8.3 mg/dL (8.5-10.1); CREATININE 1.2 mg/dL (0.7-1.3); POTASSIUM 3.9 mmol/L (3.5-5.1)
[2018-12-28 06:00] VITALS: BP 151/60
[2018-12-28 07:37] VITALS: BP 173/82
[2018-12-28 12:24] VITALS: BP 140/90
--- NOTE | 2018-12-28 14:09 | NUR ---
ON-GOING ASSESSMENT: CM REVIEWED THE CHART AND SPOKE WITH WALE NURSE PRACTIONER WHO STATES WILL LIKELY BE HERE THROUGH THE WEEKEND. CM CONTACTED [facility] AND SPOKE WITH JAMIE TO UPDATE AND FAXED UPDATED CLINICAL. CM ALSO SPOKE WITH PATIENTS SISTER ANGELO. CM WILL CONTINUE TO FOLLOW TO ASSIST NEEDED. NO WEEKEND DISCHARGE ANTICIPATED.
[2018-12-28 15:00] VITALS: BP 149/88
[2018-12-28 20:30] VITALS: BP 145/82
--- NOTE | 2018-12-28 21:17 | NUR ---
PATIENT SLEEPY THIS AM BUT EASILY AWAKENED. SPOKE WITH SISTER AND DPOA AND GAVE UPDATE AND DPOA GAVE CONSENT FOR BEDSIDE BIOPSY. TUBE FEEDING STARTED AND 30 ML/HR AND CONTINUE WITH IV FLUIDS. HEART RATE ELEVATED AND NOTIFIED DR. EGAN AND NO NEW ORDERS. HEART RATE DECREASED LATER IN DAY. REPLACED EXTERNAL CATHETER IN AFTERNOON PATIENT IS INCONTINENT.
--- NOTE | 2018-12-28 23:31 | NUR ---
at 2310 patient pulled out peg tube. provider called message left awaiting call back. patients surgical puncture site cleaned and dressed. no trama to the site. patient stable. wcm.
--- NOTE | 2018-12-29 04:20 | NUR ---
PATIENT IS ALERT TO SELF. PATIENT HAS EXPRESSIVE APHASIA. PATIENT GOT A BATH THIS SHIFT. PATIENT IS NORMALY ON PEG TUBE FEEDING GLUCERNA 1.2 AT 40ML GOAL RATE 60ML. PATIENT PULLED OUT PEG TUBE THIS SHIFT. ATTEMPTING TO NOTIFY PROVIDER. PATIENT IS Q6H ACCUCHECK. PATIENT IS 2LNC RA IS BASELINE. PATIENT HAS AN EXTERNAL CATH. PATIENT IS INCONTIENT. PATIENT IS A FIB ON TELE. PATIENTS DRESSING WERE CHANGED. PAITENT IS FROM [facility]. PATIENT IS Q2TURN BEDREST. PATIENT IN ISO FOR MRSA. PATIENT DENIES PAIN. PATIENT IS RESTING COMFORTABLY IN BED. WCM. PATIENT IS PROGRESSING TO GOALS.
[2018-12-29 04:25] VITALS: BP 143/80
--- NOTE | 2018-12-29 04:36 | NUR ---
PROVIDER CONTACTED ABOUT PEG TUBE. WCM
[2018-12-29 06:34] LABS: HEMATOCRIT 29.9 % (42.0-52.0); HEMOGLOBIN 9.3 gm/dL (14.0-18.0); MCH 24.8 pg (26.0-34.0); MCHC 31.3 g/dL (28.0-37.0); MCV 79.3 fL (80.0-100.0); RBC 3.76 mil/uL (4.50-6.00); RDW 19.3 % (10.5-14.5); WBC 6.2 thou/uL (4.0-11.0)
[2018-12-29 06:47] LABS: CALCIUM 8.3 mg/dL (8.5-10.1); CREATININE 1.2 mg/dL (0.7-1.3); POTASSIUM 3.7 mmol/L (3.5-5.1)
[2018-12-29 07:33] VITALS: BP 163/81
[2018-12-29 07:42] VITALS: BP 145/94
[2018-12-29 12:27] VITALS: BP 150/81
[2018-12-29 16:10] VITALS: BP 146/81
[2018-12-29 19:30] VITALS: BP 147/68
--- NOTE | 2018-12-29 20:29 | NUR ---
PATIENT ALERT TO SELF AND LOCATION. SEEMS TO UNDERSTAND BUT CAN NOT EXPRESS IN WORDS BUT CAN STATE YES/NO TO QUESTIONS. SISTER AND DPOA, ANGELO AT BEDSIDE FOR COUPLE HOURS TODAY AND SPOKE WITH THIS NURSE AT LENGTH AND DR. EGAN. ANGELO HAD MANY CONCERNS ABOUT PATIENTS PREVIOUS CARE AT VARIOUS FACILITIES. PATIENT PEG TUBE OUT AND IS CURRENTLY GETTING IV FLUIDS AND IS NPO. DR. EGAN AWARE. GI CONSULTED AND THE PLAN IS TO GET NEW PEG PLACED ON MONDAY. CONSENT IS ON CHART. SEVERAL ATTEMPTS TO CALL ANGELO UNABLE TO REACH HER. NOTIFIED NIGHT NURSE OF NEED TO GET CONSENT FOR PEG PLACEMENT SIGNED.
[2018-12-30 04:00] VITALS: BP 144/83
[2018-12-30 04:45] LABS: ABSOLUTE NEUTROPHILS 3.5 thou/uL (1.4-8.2); BASOPHILS 1.1 % (0.0-2.0); EOSINOPHILS 6.5 % (0.0-3.0); HEMATOCRIT 29.4 % (42.0-52.0); HEMOGLOBIN 9.4 gm/dL (14.0-18.0); LYMPHOCYTES 11.4 % (24.0-44.0); MCHC 31.8 g/dL (28.0-37.0); MCV 78.8 fL (80.0-100.0); MONOCYTES 9.4 % (1.0-8.0); PLATELET COUNT 319 thou/uL (150-400); POLYS 71.6 % (36.0-66.0); RBC 3.74 mil/uL (4.50-6.00); RDW 18.9 % (10.5-14.5); WBC 4.8 thou/uL (4.0-11.0)
[2018-12-30 05:01] LABS: CALCIUM 8.3 mg/dL (8.5-10.1); CREATININE 1.1 mg/dL (0.7-1.3); POTASSIUM 3.7 mmol/L (3.5-5.1)
[2018-12-30 08:32] VITALS: BP 148/79
[2018-12-30 12:15] VITALS: BP 147/75
--- NOTE | 2018-12-30 15:21 | HC ---
[facility] [place] [address] CONSULTATION Name: GEORGIANA ARIAS Room #: 363-P ADM IN M.R.#: [id number] Admission: 12/26/18 ������������������ Attend Phys: Isiah Nam MD Discharge: ������������������ Date of : 52 Report #: [id number] THIS REPORT FOR: //name// CC: Isiah Nam DATE OF SERVICE: 12/26/2018 PULMONARY CONSULTATION REFERRING PHYSICIAN: Isiah Nam MD REASON FOR REFERRAL: History of lung mass. HISTORY OF PRESENT ILLNESS: The patient is a 68-year-old white male who is known to the pulmonary service admitted on 12/26/2018 for cough and congestion. The patient was felt to have recurrent aspiration pneumonia. With his history of lung mass, a pulmonary consultation was requested. The patient was initially found to have pleural effusion on the left dating back to October 2018. Thoracentesis suggested it was a transudate. A chest tube was placed at that time. Chest tube was subsequently withdrawn. He was then readmitted around April 2018 with recurrent left-sided pleural effusion. At this time, there was a questionable left lower lobe density. When I saw the patient at that time, the density appeared to be rounded atelectasis with aeration within the density. Review of the chest CT also shows other ill-defined left lingular lung nodular density. Most recent chest CT performed on 12/27/2018 shows soft tissue mass involving the lingula, left upper lobe measuring 2.7 x 1.7 mm in diameter, this is small when compared to previous study of April 2018. There is a left lower lobe density measuring 5 x 5.4 cm in diameter. It is round and is felt to be a rounded density. This has not changed from April 2018. There is mild to moderate bilateral pleural effusion, greater in the right than the left. The patient has history of recurrent CVA and is aphasic. He does nod yes or no. Currently, he is awake, alert, in no distress. PAST MEDICAL HISTORY: As mentioned above including history of recurrent CVA, left-sided hemiplegia, aphasia, dysphagia, diabetes mellitus type 2, paroxysmal atrial fibrillation, gastroesophageal reflux disease, prostatic hypertrophy, history of recurrent aspiration pneumonia, NENO, on CPAP at home; history of pulmonary embolus, hemorrhagic pleural effusion in the past, myocardial infarction in 2018, chronic kidney disease stage 4, seizure disorder. [address] [address] CONSULTATION Name: GEORGIANA ARIAS Room #: 363-P [facility] IN M.R.#: [id number] Admission: 12/26/18 ������������������ Attend Phys: Isiah Nam MD Discharge: ������������������ Date of : 51 Report #: [id number] PAST SURGICAL HISTORY: As mentioned above including chest tube placement in October 2017, also undergoing temporary dialysis in the past. ALLERGIES: PENICILLIN, REACTIONS ANAPHYLAXIS. LEVAQUIN, REACTIONS NOT SPECIFIED. METHADONE, MORPHINE. SULFA, REACTIONS NOT SPECIFIED. HE IS ALSO ALLERGIC TO MUSHROOMS. MEDICATIONS: From the facility are reviewed and this includes terazosin, Cardizem, Zyloprim, Lasix, Eliquis, insulin supplements, Glucophage, Lipitor, probiotic. FAMILY HISTORY: Noncontributory. SOCIAL HISTORY: No past history of tobacco or alcohol use. He currently resides in a jail. REVIEW OF SYSTEMS: Deferred. PHYSICAL EXAMINATION: GENERAL: He is awake, in no apparent distress. VITAL SIGNS: Temperature is 98 degrees Fahrenheit, pulse is 110, respiratory rate is 18, blood pressure 150/81 mmHg, saturation is 100%. HEENT: Normocephalic, atraumatic. NECK: Supple, without any lymphadenopathy or thyromegaly. CHEST: Breath sounds are decreased in the bases, few scattered crackles. No wheezes. CARDIOVASCULAR: Normal S1, S2. There are no murmurs or gallop. There is no JVD. There is no carotid bruit. Pulses are 2+/4+ bilaterally. ABDOMEN: Soft, nontender, no organomegaly or masses felt. Status post PEG tube placement in the upper quadrant. GENITOURINARY: Deferred. RECTAL: Deferred. EXTREMITIES: There is no edema, cyanosis or clubbing. LABORATORY DATA: Chest x-ray, CT chest as mentioned above. Electrolytes, sodium 150, potassium 3.7, chloride 113, CO2 of 31, BUN is 35, creatinine is 1.2. Liver enzymes are mildly abnormal with elevated alkaline phosphatase. WBC 6200, hemoglobin 9.3, platelets are normal. Albumin 2.2. IMPRESSION: 1. History of left lower lobe lung masses as outlined above. Some of the lung masses in the lingula appears to have decreased in size. The left lower lobe rounded density appears to be rounded atelectasis and has remained unchanged since April 2018. This likely represents a benign process, would recommend followup with chest CTs in 4-6 months to assure stability. [facility] [address] [place] [address] CONSULTATION Name: ARIASGEORGIANA Room #: 363-P ADM IN M.R.#: [id number] Admission: 12/26/18 ������������������ Attend Phys: Isiah Nam MD Discharge: ������������������ Date of : 52 Report #: [id number] 2. History of recurrent left-sided pleural effusion. The initial thoracentesis was transudate. Subsequent followup thoracentesis in April 2018 was exudate presumably related to pneumonia and diuresis. Current chest CT shows chronic small to moderate bilateral pleural effusion, greater in the right than the left. Pleural effusion appears to be organized into a pleural peel. He has had a chest tube placed previously on the left in October 2017. 3. History of chronic obstructive pulmonary disease, severity unknown. 4. Obstructive sleep apnea, on CPAP. 5. Recurrent aspiration pneumonia, currently on antibiotics. 6. History of cerebrovascular accident, multiple, with right hemiplegia, aphasia and dysphagia, status post PEG tube placement along with progressive muscle weakness and debility. 7. Chronic kidney disease. 8. Diabetes mellitus, type 2. 9. Anemia of chronic disease. 10. Hypertension. 11. Chronic diastolic heart failure. 12. Permanent atrial fibrillation, had been on chronic anticoagulation. RECOMMENDATIONS AND DISCUSSION: As mentioned above, the lung nodule appears to have decreased in size or has remained stable, which likely suggests a benign process. Pleural effusion is likely organized. No further workup is necessary at this time unless pleural fluid recurs. Would suggest a followup chest CT in around 4-6 months to assure stability. Thank you for this consultation. ��������������������������������������������� <ELECTRONICALLY SIGNED> ���������������������������������������� By: Tong Rinaldi MD ��������������������������������������������� 12/30/18 1521 1318 1916 Tong Rinaldi MD /nt
[2018-12-30 16:40] VITALS: BP 156/78
[2018-12-30 19:49] VITALS: BP 143/79
[2018-12-30 20:04] LABS: CALCIUM 8.5 mg/dL (8.5-10.1); CREATININE 1.1 mg/dL (0.7-1.3); POTASSIUM 3.7 mmol/L (3.5-5.1)
[2018-12-30 20:05] LABS: MAGNESIUM 1.8 mg/dL (1.8-2.4)
--- NOTE | 2018-12-30 20:37 | NUR ---
AT 191, DR. EGAN RETURNED PAGE. UPDATED ON RUNS OF VTACH UP T0 10 BEATS. PT ASYMPTOMATIC. ORDERS RECEIVED FOR STAT LABS/CARDIOLOGY CONSULT. AT 193, DR. COOPER RETURNED CALL FOR NEW CONSULT. UPDATED ON PT STATUS INCLUDING ELEVATED BNP. ORDER TO DC IV FLUIDS. AT 1947, DR. EGAN RETURNED PAGE, REQUESTED IV FLUID BE AT TKO. CARSON RECEIVING RN, UPDATED.
[2018-12-31] VITALS (20 sets, daily range): BP systolic 125–158; BP diastolic 61–88
--- NOTE | 2018-12-31 03:27 | NUR ---
TURNS Q2 HOURS. HE IS AWAKE AND PREFERS THE TELEVISION ON ALL NIGHT. ENCOURAGED PASSIVE RANGE OF MOTION. HE HAS A VERY CONGESTED COUGH, ENCOURAGED DEEP BREATHING. CONTINUES ON IV FLUIDS. CAREPLAN REVIEWED.
[2018-12-31 05:35] LABS: ABSOLUTE NEUTROPHILS 4.3 thou/uL (1.4-8.2); EOSINOPHILS 5.3 % (0.0-3.0); HEMATOCRIT 31.5 % (42.0-52.0); HEMOGLOBIN 9.7 gm/dL (14.0-18.0); LYMPHOCYTES 9.5 % (24.0-44.0); MCH 24.6 pg (26.0-34.0); MCHC 30.9 g/dL (28.0-37.0); MCV 79.7 fL (80.0-100.0); MONOCYTES 8.9 % (1.0-8.0); PLATELET COUNT 309 thou/uL (150-400); POLYS 75.3 % (36.0-66.0); RBC 3.96 mil/uL (4.50-6.00); RDW 18.6 % (10.5-14.5); WBC 5.7 thou/uL (4.0-11.0)
[2018-12-31 05:50] LABS: CALCIUM 8.7 mg/dL (8.5-10.1); CREATININE 1.1 mg/dL (0.7-1.3); POTASSIUM 3.7 mmol/L (3.5-5.1)
--- NOTE | 2018-12-31 07:44 | P ---
[facility] [place] [address] PROCEDURE REPORT Name: GEORGIANA ARIAS Room #: 363-P ADM IN M.R.#: [id number] Admission: 12/26/18 ������������������ Attend Phys: Isiah Nam MD Discharge: ������������������ Date of : 51 Report #: [id number] THIS REPORT FOR: //name// CC: Isiah Nam DATE OF SERVICE: 12/26/2018 PREPROCEDURE DIAGNOSIS: Perirectal ulceration. POSTPROCEDURE DIAGNOSIS: Perirectal ulceration. PROCEDURE: Multiple punch biopsies of perirectal region. HISTORY: This is a 68-year-old male patient admitted with perirectal ulceration as well as history of lung masses. Perirectal ulceration is felt to be not in a typical pressure ulcer location and therefore, biopsy was felt to be appropriate to exclude malignancy. This was discussed with the patient's sister who is the POA who has given us permission to do so. The ulcerated area was prepped and draped in the usual sterile fashion and anesthetized with 1% lidocaine with 1:100,000 concentration of epinephrine. Following this, 3 areas of tissue were taken using a 5 mm punch biopsy and submitted in formalin. There was small amount of bleeding. Estimated blood loss was approximately 3 mL. The biopsy sites were cauterized with silver nitrate with good hemostasis intact. The patient tolerated the procedure well. The patient appeared to experience no pain during the procedure and tolerated the procedure with no complications. ��������������������������������������������� <ELECTRONICALLY SIGNED> ���������������������������������������� By: Giovanny Andrade MD ��������������������������������������������� 12/31/18 0744 1829 0108 Giovanny Andrade MD /nt
--- NOTE | 2018-12-31 08:19 | NUR ---
ON-GOING ASSESSMENT: CM REVIEWED CHART. PT IS TO GET PEG TUBE PLACED TODAY. CM FAXED UPDATED CLINICAL OVER TO [facility] TO UPDATE THEM. PLANS ARE FOR PATIENT TO RETURN TO [facility] ONCE MEDICALLY STABLE. CM WILL CONTINUE TO FOLLOW TO ASSIST NEEDED.
--- NOTE | 2018-12-31 10:09 | 2DMMODE ---
[facility] [address] [place] [address] 2 D/M-MODE ECHOCARDIOGRAM Name: GEORGIANA ARIAS Room #: 363-P ADM IN M.R.#: [id number] ������������� Admission: 12/26/18 ������������� Attend Phys: Isiah Nam MD Discharge: ��� ������������� ��� Date of : 52 Date of Service: 12/31/18 1009 �� Report #: [id number] �������� ��������������������������������������������[id number] THIS REPORT FOR: //name// APPROVED REPORT Study performed: 12/31/2018 09:11:33 EXAM: Comprehensive 2D, Doppler, and color-flow Echocardiogram Patient Location: Bedside Room #: 363 Status: routine BSA: 2.17 HR: 94 bpm BP: 158/86 mmHg Rhythm: Atrial Fibrillation Other Information Study Quality: Good Indications Congestive Heart Failure Arrhythmia Pericardial Effusion Hypertension/HDD 2D Dimensions RVDd: 54.15 mm IVSd: 14.42 (7-11mm) LVOT Diam: 21.18 (18-24mm) LVDd: 48.75 mm PWd: 15.15 (7-11mm) Ascending Ao: 37.38 (22-36mm) LVDs: 39.30 (25-40mm) Aortic Root: 30.88 mm IVC: 28.00 mm Volumes Left Atrial Volume (Systole) Single Plane 4CH: 116.67 mL Single Plane 2CH: 84.95 mL LA ESV Index: 50.00 mL/m2 Aortic Valve AoV Peak Arpit.: 1.21 m/s AO Peak Gr.: 5.81 mmHg LVOT Max P.33 mmHg LVOT Max V: 0.91 m/s JANI Vmax: 2.67 cm2 Pulmonary Valve [facility] [address] [address] 2 D/M-MODE ECHOCARDIOGRAM Name: GEORGIANA ARIAS Room #: 363-P ADM IN M.R.#: [id number] ������������� Admission: 12/26/18 ������������� Attend Phys: Isiah Nam MD Discharge: ��� ������������� ��� Date of : 52 Date of Service: 12/31/18 1009 �� Report #: [id number] �������� ��������������������������������������������[id number] PV Peak Arpit.: 0.94 m/s PV Peak Gr.: 3.53 mmHg Tricuspid Valve TR Peak Arpit.: 3.13 m/s TR Peak Gr.: 39.65 mmHg PA Pressure: 55.00 mmHg Left Ventricle The left ventricle is normal size. There is normal LV segmental wall motion. There is normal left ventricular wall thickness. Left ventricular systolic function is at the lower limits of normal LVEF is 50%. This study is not technically sufficient to allow evaluation of the LV diastolic function. Right Ventricle Right ventricle is dilated. The right ventricular systolic function is normal. Atria Left atrium is dilated. Right atrium is dilated. Aortic Valve The aortic valve is mildly sclerotic Mild aortic regurgitation. There is no aortic valvular stenosis. Mitral Valve The mitral valve is normal in structure. Mild mitral regurgitation. No evidence of mitral valve stenosis. Tricuspid Valve The tricuspid valve is normal in structure. There is mild tricuspid regurgitation. Estimated PAP 55 mmHg. There is moderate pulmonary hypertension. Pulmonic Valve The pulmonary valve is normal in structure. Trace to mild pulmonic regurgitation. Great Vessels The aortic root is normal in size. The inferior vena cava is dilated with no inspiratory collapse. Pericardium Trace pericardial effusion. <Conclusion> [facility] [address] [place] [address] 2 D/M-MODE ECHOCARDIOGRAM Name: GEORGIANA ARIAS Room #: 363-P ADM IN M.R.#: [id number] ������������� Admission: 12/26/18 ������������� Attend Phys: Isiah Nam MD Discharge: ��� ������������� ��� Date of : 52 Date of Service: 12/31/18 1009 �� Report #: [id number] �������� ��������������������������������������������[id number] Left ventricular systolic function is at the lower limits of normal LVEF is 50%. Right ventricle is dilated. Both atria are moderately dilated. The aortic valve is mildly sclerotic. Mild aortic regurgitation, no stenosis. The mitral valve is normal in structure. Trace to mild mitral regurgitation. There is mild tricuspid regurgitation. Estimated pulmonary artery pressure of 55 mmHg. Trace pericardial effusion. ��������������������������������������������� <ELECTRONICALLY SIGNED> ���������������������������������������� By: Jean Pollard MD, [facility] ��������������������������������������������� 12/31/18 1009 1009 1009 Jean Pollard MD, FACC /INF
--- NOTE | 2018-12-31 12:15 | EKG ---
[address] [place] [address] ELECTROCARDIOGRAM REPORT Name: GEORGIANA ARIAS Room #: 363-P ADM IN M.R.#: [id number] ������������������ Admission: 12/26/18 ������������������ Attend Phys: Isiah Nam MD Discharge: ������������������ Date of : 52 Report #: [id number] ����������������������������������������������������������������� [id number] THIS REPORT FOR: //name// [facility] Test Date: 2018-12-31 Test Time: 08:27:01 Pat Name: GEORGIANA ARIAS Department: Room: 363 P Gender: M [employer] Assistant: TONY : 1950 Requested By: Jean Pollard Order Number: [id number] MD: Keenan Yanez Measurements Intervals [place] Rate: 103 P: WA: QRS: 22 QRSD: 72 T: 32 QT: 373 QTc: 489 Interpretive Statements Atrial fibrillation Low voltage, extremity leads Borderline prolonged QT interval Compared to ECG 12/26/2018 04:07:02 No significant changes Electronically Signed On 12-31-2018 12:15:01 CDT by Keenan Yanez [email or web address] ��������������������������������������������� <ELECTRONICALLY SIGNED> ���������������������������������������� By: Keenan Yanez MD ��������������������������������������������� 12/31/18 1215 6 6 Keenan Yanez MD /BHASKAR
[2018-12-31 13:46] LABS: BE(vivo) 1.1 mmol/L (-2 to +3); HCO3 26.5 mmol/L (22.0-26.0); PCO2 45.3 mmHg (35.0-45.0); PO2 315.6 mmHg (80.0-100.0); pH 7.385 (7.360-7.450); sO2 99.7 % (92.0-98.0)
--- NOTE | 2018-12-31 19:16 | NUR ---
RECIEVED PATIENT FROM GI, STATUS POST PEG PLACEMENT AND CODE BLUE. INTUBATED, AFIB 120'S, SBP 140'S, SAT 100%. AWAKE AND AGITATED. ABG DONE AND DR. MATUTE GAVE ORDER TO EXTUBATE. EXTUBATED AND CALM. 2.5 L NC, BACK TO BASELINE: AFIB 80'S - 90'S, SAT 99, RR 15, SBP 120'S.
[2019-01-01] VITALS (24 sets, daily range): BP systolic 105–179; BP diastolic 54–117
--- NOTE | 2019-01-01 05:04 | NUR ---
ASSUMED CARE OF PT. AT 1900. PT IS DROWSY, BUT HAS BEEN AWAKE FOR MOST OF THE NIGHT. PT. CAN FOLLOW SIMPLE COMMANDS, NOD TO Y/N QUESTIONS, AND CAN OCCASIONALLY SAY Y/N. PT. IS USUALLY NON-VERBAL. PT. HAS ONCONTINENCE AND HAD 2 VOIDS THROUGHOUT THE NIGHT, NO BM. VSS. POSSIBLE TRANSFER OUT OF ICU? ASSESSMENTS AND VITAL SIGNS CHARTED. PT. IS PROGRESSING TOWARD GOALS, WILL CONTINUE TO MONITOR.
[2019-01-01 08:40] LABS: ABSOLUTE NEUTROPHILS 4.4 thou/uL (1.4-8.2); BASOPHILS 0.9 % (0.0-2.0); EOSINOPHILS 2.9 % (0.0-3.0); HEMATOCRIT 30.4 % (42.0-52.0); HEMOGLOBIN 9.5 gm/dL (14.0-18.0); LYMPHOCYTES 11.9 % (24.0-44.0); MCH 24.8 pg (26.0-34.0); MCHC 31.3 g/dL (28.0-37.0); MCV 79.1 fL (80.0-100.0); MONOCYTES 7.4 % (1.0-8.0); PLATELET COUNT 276 thou/uL (150-400); POLYS 76.9 % (36.0-66.0); RBC 3.84 mil/uL (4.50-6.00); RDW 18.7 % (10.5-14.5); WBC 5.8 thou/uL (4.0-11.0)
[2019-01-01 08:46] LABS: CALCIUM 8.5 mg/dL (8.5-10.1); CREATININE 1.2 mg/dL (0.7-1.3); POTASSIUM 3.9 mmol/L (3.5-5.1)
--- NOTE | 2019-01-01 10:28 | NUR ---
FAXED CLINICAL UPDATE TO [facility] LEFT MSG WITH JAMIE IN ADM THAT UPDATE FAXED. DCP TO FOLLOW.
[2019-01-01 11:11] LABS: ANISOCYTOSIS SLIGHT; POIKILOCYTOSIS SLIGHT
[2019-01-01 15:03] LABS: HEMATOCRIT 32.3 % (42.0-52.0); HEMOGLOBIN 10.1 gm/dL (14.0-18.0); MCH 24.8 pg (26.0-34.0); MCHC 31.3 g/dL (28.0-37.0); MCV 79.2 fL (80.0-100.0); RBC 4.08 mil/uL (4.50-6.00); WBC 7.8 thou/uL (4.0-11.0)
--- NOTE | 2019-01-01 15:49 | NUR ---
JOSEFA reviewed chart and spoke with nursing. Pt is s/p peg tube placement. Pt was transferred to ICU from 3W following peg tube placement. Carlton Rodriguez called during procedure. Pt was intubated and then extubated yesterday afternoon. Orders for tube feeding to be started today. project planner faxed updates to [facility] for review. JOSEFA spoke with pt's sister, Mary, via phone. Lengthy converstaion with Mary regarding discharge plan. Mary requests pt have orders for ST to evaluate pt when he returns. Mary requests that ST, Jonel, at [facility], not work with pt due to prior experiences with Jonel. Mary is aware and agreeable with discharge back to [facility] when medically stable. JOSEFA spoke with Rianna in admissions at [facility], to request an alternate ST. ST will pass on the information to the therapy staff. Plan is for pt to return to [facility] when medically stable. JOSEFA is following to assist as needed with discharge planning.
--- NOTE | 2019-01-01 16:06 | PATH ---
[facility] [address] [place] [address] PATHOLOGY RPT PROCEDURE Name: DEREK BARRERA Room #: 244-P ADM IN M.R.#: [id number] ������������������ Admission: 12/26/18 ������������������ Date of : 52 Discharge: Report #: [id number] Path Case #: [id number] [facility] Accession Number: [id number] . 01 Material submitted: . rectum - ANJU-RECTAL ULCER . 01 Clinical history: . AMS . 02 Diagnosis: Anju-rectal ulcer, punch biopsy: - Squamous epithelial-lined fragment associated with marked acute inflammation and underlying granulation tissue. - Negative for dysplasia or malignancy within the intact epithelium. (IUV:administrative liaison; 12/31/2018) MBR/12/31/2018 . 02 Comment: A PAS-D fungal special stain is ordered and the results of this will be reported in an addendum to follow. (IUV:administrative liaison; 12/31/2018) . 02 Addendum: . This addendum is issued subsequent to reviewing a properly controlled PAS-D fungal special stain performed on block A1. There are no definite fungal hyphal elements present. (IUV:vilma; 01/01/2019) . . Professional services performed by [facility] at [facility], [address], [place] [address]. Technical services performed by [facility] at [address] [place] [address], [address] [address]. QTP/01/01/2019 Addendum Electronically Signed by Edna Lang MD, Pathologist . 02 Electronically signed: . Edna Lang MD, Pathologist NPI- [id number] . 01 Gross description: . Received in formalin labeled "Derek Barrera, anju-rectal abscess," and additionally labeled on the requisition as "ulcer," are 3 segments of gerardo soft tissue measuring 1.3 x 0.9 x 0.3 cm in aggregate dimensions and ranging from 0.5 to 0.8 cm in maximum dimension. The specimen is submitted entirely in cassette A1. (TSD; 12/28/2018) [facility] [address] [place] [address] PATHOLOGY RPT PROCEDURE Name: DEREK BARRERA Room #: 244-P ADM IN M.R.#: [id number] ������������������ Admission: 12/26/18 ������������������ Date of : 52 Discharge: Report #: [id number] Path Case #: [id number] TOB/TOB . 02 Pathologist provided ICD-10: L08.9, L98.8 . 02 CPT . 675206, 488200 Specimen Comment: A courtesy copy of this report has been sent to Specimen Comment: [phone], . Specimen Comment: Report sent to / DR EGAN Performed at: [address], [place], [place] [id number] MD Neymar Hooks MD Phone: [phone] Performed at: [address] [id number] MD Edna Lang MD Phone: [phone]
--- NOTE | 2019-01-01 16:34 | P ---
[facility] [place] [address] PROCEDURE REPORT Name: GEORGIANA ARIAS Room #: 244-P [facility] M.R.#: [id number] Admission: 12/26/18 ������������������ Attend Phys: Isiah Nam MD Discharge: ������������������ Date of : 52 Report #: [id number] THIS REPORT FOR: //name// CC: Isiah Nam MD BRIEF HISTORY: The patient is a 68-year-old male with a history of CVA, who was brought to [facility] from nursing facility as he had a dislodged gastrostomy tube. Unfortunately, the fistula closed and the tube could not be passed. He presents for endoscopy and insertion of a gastrostomy tube. PREOPERATIVE DIAGNOSIS: Dysphagia. POSTOPERATIVE DIAGNOSIS: Dysphagia. MEDICATIONS: Deep sedation with propofol per anesthesia. SPECIMEN: None. ESTIMATED BLOOD LOSS: 3 mL. PROCEDURE: Percutaneous endoscopic gastrostomy tube placement. FINDINGS: The patient was brought to the GI suite. Due to history of patient, consent was obtained from family. DESCRIPTION OF PROCEDURE: With the patient in supine position, his head and chest raised above 30 degrees, the Olympus video endoscope was inserted in the cervical esophagus under direct vision without difficulty. Examination of this organ through its entire length revealed normal esophageal mucosa down the squamocolumnar junction. The squamocolumnar junction was inspected and noted to be unremarkable. The scope was advanced into the stomach, was examined on end view as well as retroflexed views. The mucosa was normal. In the distal body of the stomach, there was a defect consistent with the entry site of the previous tube. The antrum was unremarkable. Pylorus is unremarkable. Duodenal bulb was unremarkable. The scope was withdrawn back into the stomach and light was aimed against the anterior gastric wall at the site of the previous insertion of the tube. Externally, the light could be seen at the same spot. The old fistula tract was cleaned up. We initially attempted to pass the wire through the fistula, but it would not pass as the fistula was completely closed. We then cleaned the skin with aseptic technique. Subsequently, the old site was extended with a scalpel. The site was infiltrated with Xylocaine and the needle was advanced through the existing fistula in the gastric lumen. A guidewire was advanced, retrieved and pulled out the mouth. Subsequently, a 20-Upper Sorbian feeding gastrostomy tube was guided over the wire. The leading edge was seen coming through the incision. The tube was pulled into place. The endoscope was reinserted and final adjustments were made under direct endoscopic [facility] [address] [place] [address] PROCEDURE REPORT Name: GEORGIANA ARIAS Room #: 244-P [facility] IN M.R.#: [id number] Admission: 12/26/18 ������������������ Attend Phys: Isiah Nam MD Discharge: ������������������ Date of : 52 Report #: [id number] vision. DISPOSITION: PEG tube was placed successfully. However, after the procedure was completed, patient developed hypertension, bradycardia, hence code was undertaken. Please see anesthesia records for additional details. ��������������������������������������������� <ELECTRONICALLY SIGNED> ���������������������������������������� By: Joby Fay MD ��������������������������������������������� 01/01/19 1634 1249 0018 Joby Fay MD /nt
--- NOTE | 2019-01-01 17:27 | NUR ---
END OF SHIFT NOTE. ASSUME CARE AT 0700 01/01 INITIALLY ASSESMENTS AND VS DONE PER ICU PROTOCOL. PATIENT NOW MED/SURG/TELE STATUS, WAITING FOR AN AVAILABLE BED TO OPEN. PATIENT PRESENTING HYPERTENSIVE AND TACHYCARDIC, CARDIOLOGY PAGED TWICE. RECIEVED ONE TIME ORDER DIGOXIN. PATIENT APPEARED TO BE IN PAIN MOST THE DAY, GRIMACING AND CALLING OUT. PRN FENTANYL ORDERS OBTAINED. TUBE FEEDING RESUMED WITH GLUCERNA 1.2, PATIENT NOW AT GOAL (60ML). DR. SILVA (WOUND CARE) SAW PATIENT, STILL AWAITING WOUND BIOPSY RESULTS. PLAN OF CARE CONTINUE TO MONITOR.
[2019-01-02] VITALS (7 sets, daily range): BP systolic 127–169; BP diastolic 58–89
[2019-01-02 05:06] LABS: CREATININE 1.2 mg/dL (0.7-1.3); POTASSIUM 4.2 mmol/L (3.5-5.1)
--- NOTE | 2019-01-02 08:25 | NUR ---
report received from previous rn. received orders for transfer to ccu. rn in ct with another pt, therefore unable to take report. attempting to give report to charge nurse & she stated, "I will call you back".
--- NOTE | 2019-01-02 09:18 | NUR ---
Recommend new tube feed goal rate of 70ml/hr. Recommend start water flushes 200ml every 6 hr and add 1 packet beneprotein in each water flush.
--- NOTE | 2019-01-02 09:25 | NUR ---
report given to oncoming rn. room is now clean. transferring to tele rm #206.
--- NOTE | 2019-01-02 10:20 | NUR ---
moved to floor bed, then transferred to #206. bao Sampson updated on pt having excessive urinary residual and Dr. Rinaldi requested attending md be notified for urology consult.
--- NOTE | 2019-01-02 11:41 | NUR ---
WOUND CARE FOLLOW UP; ROUNDING WITH ARVIND ELECTRIC TAPE SLITTER AND MARIA DEL ROSARIO SANDER MACHINE. THE PERIRECTAL WOUND IS STABLE WITH NO VISABLE S/S OF INFECTION. RECOMMENDATIONS; CONT. CURRENT POC RN PRESENT
--- NOTE | 2019-01-02 13:53 | NUR ---
68YO MALE TRANSFERRED TO 206 FROM ICU. PEG TUBE, GLUCERNA INFUSING AT 60, SALINE LOCK IN RFA, GREEN CATHETER PATENT TO DD, ALERT AND ORIENTED TO SELF, NON VERBAL, WILL CONTINUE TO MONITOR
--- NOTE | 2019-01-02 17:37 | NUR ---
[facility] can accept patient with indwelling catheter at ut.
[2019-01-03 04:23] LABS: CALCIUM 8.1 mg/dL (8.5-10.1); CREATININE 1.1 mg/dL (0.7-1.3); POTASSIUM 4.3 mmol/L (3.5-5.1)
[2019-01-03 05:06] VITALS: BP 154/72
--- NOTE | 2019-01-03 05:28 | NUR ---
PATIENT ALERT AND NON-VERBAL, ABLE TO COMMUNICATE BY NODDING TO YES/NO QUESTIONS. FOLLOWS COMMANDS. 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 ON 2L NASAL CANNULA. TOLERATING TUBE FEEDING AT 60. GREEN PATENT AND DRAINING. BLOOD SUGAR MONITORED. WOUND DRESSING INTACT. NO SIGNS OF ACUTE DISTRESS NOTED AT THIS TIME. WILL CONTINUE TO MONITOR.
[2019-01-03 08:00] VITALS: BP 167/82
[2019-01-03] MEDS ORDERED: DOXYCYCLINE HYC50 MG PO (09:54)
[2019-01-03] MEDS ORDERED: CARDIZEM60 MG PER TUBE (09:55)
[2019-01-03] MEDS ORDERED: DIGOXIN250 MCG PER TUBE (09:55)
--- NOTE | 2019-01-03 12:21 | NUR ---
[facility] FA[facility] DC ORDERS/SUMMARY TO FACILITY SPOKE WITH JAMIE IN ADM SHE RECEIVED DC ORDERS AND NOTIFIED HER THAT TRANSPORT ARRANGED VIA AMBULANCE FOR 1500 TODAY. DCP LEFT MSG WITH SISTER (ANGELO) OF DC AND TIME OF TRANSPORT. UNIT NOTIFIED AND CHART COPY PER US. RN TO CALL REPORT TO [phone].
--- NOTE | 2019-01-03 13:03 | NUR ---
NURSE TALKED WITH DR. EGAN IN REGARDS TO EVENT OPERATIONS MANAGER RECOMMENDATIONS. PHYSICIAN EXPRESSED TO HAVE THE FACILITY RESUME WHAT THEY WERE PRVIOUSLY DOING PRIOR TO HOSPITALIZATION. NURSE ALSO TALKED WITH PATIENT DPOA ABOUT MEDICARE RIGHTS AND THE DISCHARGE MEDICARE FORM. SHE EXPRESSED THAT SHE IS OK WITH DISCHARGE.
[2019-01-03 13:12] VITALS: BP 177/82
[2019-01-03 16:00] VITALS: BP 155/74
== END 2019-01-03 17:10 | DRG 177 ==
LOC: ER 00:51 → 3W 03:45 → EROBS 03:45 → ER 04:49 → 3W 05:20 → ICU 12-31 13:41 → 2N 01-02 10:27
PROVIDERS: Emergency Medicine; Internal Medicine Pulmonary Disease; Nurse Practitioner Adult Health; Specialist; ADMIT Internal Medicine
PROC: 0HB9XZX Excision of Perineum Skin, External Approach, Diagnostic (ICD-10-PCS; principal; 2018-12-26)
PROC: 0BH17EZ Insertion of Endotracheal Airway into Trachea, Via Natural or Artificial Opening (ICD-10-PCS; 2018-12-31)
PROC: 0DH68UZ Insertion of Feeding Device into Stomach, Via Natural or Artificial Opening Endoscopic (ICD-10-PCS; 2018-12-31)
DX: J69.0 Pneumonitis due to inhalation of food and vomit (principal); E43 Unspecified severe protein-calorie malnutrition; J96.90 Respiratory failure, unspecified, unspecified whether with hypoxia or hypercapnia; I21.4 Non-ST elevation (NSTEMI) myocardial infarction; K62.6 Ulcer of anus and rectum; N18.4 Chronic kidney disease, stage 4 (severe); I50.32 Chronic diastolic (congestive) heart failure; G93.40 Encephalopathy, unspecified; K94.23 Gastrostomy malfunction; I47.2 Ventricular tachycardia; M86.8X7 Other osteomyelitis, ankle and foot; I69.354 Hemiplegia and hemiparesis following cerebral infarction affecting left non-dominant side; I69.351 Hemiplegia and hemiparesis following cerebral infarction affecting right dominant side; I13.0 Hypertensive heart and chronic kidney disease with heart failure and stage 1 through stage 4 chronic kidney disease, or unspecified chronic kidney disease; E78.5 Hyperlipidemia, unspecified; K21.9 Gastro-esophageal reflux disease without esophagitis; N40.0 Benign prostatic hyperplasia without lower urinary tract symptoms; G47.33 Obstructive sleep apnea (adult) (pediatric); E11.22 Type 2 diabetes mellitus with diabetic chronic kidney disease; L89.510 Pressure ulcer of right ankle, unstageable; I48.0 Paroxysmal atrial fibrillation; G40.909 Epilepsy, unspecified, not intractable, without status epilepticus; I25.10 Atherosclerotic heart disease of native coronary artery without angina pectoris; J44.9 Chronic obstructive pulmonary disease, unspecified; E11.69 Type 2 diabetes mellitus with other specified complication; D63.1 Anemia in chronic kidney disease; M10.9 Gout, unspecified; R13.10 Dysphagia, unspecified; J98.4 Other disorders of lung; Z88.6 Allergy status to analgesic agent; Z88.0 Allergy status to penicillin; Z88.2 Allergy status to sulfonamides; I69.320 Aphasia following cerebral infarction; Z88.8 Allergy status to other drugs, medicaments and biological substances; I25.2 Old myocardial infarction; Z89.431 Acquired absence of right foot; Z87.891 Personal history of nicotine dependence; Z79.01 Long term (current) use of anticoagulants; Z68.28 Body mass index [BMI] 28.0-28.9, adult; I69.391 Dysphagia following cerebral infarction
CPT/HCPCS: 10078; 10081; 10203; 10879; 62110; 62900

== ENCOUNTER 2019-01-10 05:22 | Emergency (ER) | payer OTHER ==
[~2019-01-10] VITALS: Ht 188 cm; Wt 99.8 kg
[~2019-01-10 05:22] MED LIST changes: +CARDIZEM60 MG PER TUBE; +DIGOXIN250 MCG PER TUBE; +DOXYCYCLINE HYC50 MG PO; +ZANTAC 150MG T150 MG PO
[2019-01-10 05:52] LABS: ABSOLUTE NEUTROPHILS 4.9 thou/uL (1.4-8.2); BASOPHILS 0.6 % (0.0-2.0); EOSINOPHILS 2.1 % (0.0-3.0); HEMATOCRIT 28.4 % (42.0-52.0); LYMPHOCYTES 12.2 % (24.0-44.0); MCH 24.9 pg (26.0-34.0); MCHC 31.7 g/dL (28.0-37.0); MCV 78.7 fL (80.0-100.0); MONOCYTES 8.9 % (1.0-8.0); PLATELET COUNT 235 thou/uL (150-400); POLYS 76.2 % (36.0-66.0); RBC 3.62 mil/uL (4.50-6.00); RDW 19.8 % (10.5-14.5); WBC 6.4 thou/uL (4.0-11.0)
[2019-01-10] MEDS ORDERED: ACIDOPHILUS1 EAC4 PO (05:57)
[2019-01-10 05:58] LABS: CALCIUM 8.4 mg/dL (8.5-10.1); CREATININE 1.3 mg/dL (0.7-1.3); POTASSIUM 4.7 mmol/L (3.5-5.1)
[2019-01-10] MEDS ORDERED: LASIX 40 MG TAB40 M2 PO (05:59)
[2019-01-10] MEDS ORDERED: ROBITUSSIN100 MG/53 PO (06:00)
[2019-01-10] MEDS ORDERED: SANTYL OINTMENT30 G1 TOP (06:01)
[2019-01-10 06:08] LABS: ALBUMIN 1.9 g/dL (3.4-5.0); MAGNESIUM 2.1 mg/dL (1.8-2.4); TOTAL BILIRUBIN 0.4 mg/dL (<0.1-1.0); TOTAL PROTEIN 6.8 g/dL (6.4-8.2); TROPONIN-I 0.06 ng/mL (<0.06)
[2019-01-10] MEDS ORDERED: DOXYCYCLINE 10100 MG PO (07:05)
[2019-01-10 07:19] VITALS: BP 140/61
--- NOTE | 2019-01-11 08:32 | EKG ---
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: : 1950 Requested By: Mehrdad Aguilar Order Number: [id number] MD: Jean Pollard Measurements Intervals [place] Rate: 65 P: [place]: QRS: 26 QRSD: 83 T: 111 QT: 491 QTc: 511 Interpretive Statements Atrial fibrillation Premature ventricular aberrantly conducted supraventricular complexes Anterior infarct, old Nonspecific ST and T wave abnormality Prolonged QT interval Compared to ECG 12/31/2018 08:27:01 Ventricular ectopy is now present QT interval has lengthened Electronically Signed On 01-11-2019 8:31:46 CDT by Jean Pollard [email or web address] ��������������������������������������������� <ELECTRONICALLY SIGNED> ���������������������������������������� By: Jean Pollard MD, [facility] ��������������������������������������������� 01/11/19830 0 0 Jean Pollard MD, [facility] /EPI
== END 2019-01-10 08:12 | disposition short-term general hospital (02) ==
LOC: ER 05:22
PROVIDERS: Emergency Medicine
DX: R06.02 Shortness of breath (principal); I48.91 Unspecified atrial fibrillation; K21.9 Gastro-esophageal reflux disease without esophagitis; E78.5 Hyperlipidemia, unspecified; M10.9 Gout, unspecified; G47.30 Sleep apnea, unspecified; E11.22 Type 2 diabetes mellitus with diabetic chronic kidney disease; N18.4 Chronic kidney disease, stage 4 (severe); I50.9 Heart failure, unspecified; Z79.4 Long term (current) use of insulin; Z86.2 Personal history of diseases of the blood and blood-forming organs and certain disorders involving the immune mechanism; Z99.2 Dependence on renal dialysis; Z88.0 Allergy status to penicillin; Z88.1 Allergy status to other antibiotic agents; Z88.5 Allergy status to narcotic agent; Z88.2 Allergy status to sulfonamides; Z91.018 Allergy to other foods; Z88.8 Allergy status to other drugs, medicaments and biological substances; Z87.01 Personal history of pneumonia (recurrent)